=== PATIENT | male | born 1955 | race Caucasian/White ===

== ENCOUNTER 2016-12-16 10:01 | Inpatient (IN) ==
[2016-12-16] MEDS ORDERED: 0.9 % Sodium Chloride 500 ML IVC ONE (10:11)
[2016-12-16] MEDS ORDERED: Aspirin 81 MG TAB.CHEW PO ONE (10:11)
[2016-12-16] MEDS: Nitroglycerin 0.4 MG TAB.SUBL SL ONE ×2 (10:25→10:32)
[2016-12-16 10:32] LABS: Basophils % 0.3 %; Eosinophils # 0.1 K/mcL (0.0-0.6); Eosinophils % 0.6 %; Hematocrit 42.7 % (37.5-50.1); Hemoglobin 14.6 g/dL (12.9-16.9); Immature Granulocytes % 0.2 % (0-4); Lymphocytes # 1.9 K/mcL (0.6-4.6); Lymphocytes % 22.6 %; Mean Corpuscular HGB Conc 34.2 g/dL (31.6-35.5); Mean Corpuscular Hemoglobin 30.6 pg (28.0-33.3); Mean Corpuscular Volume 89.5 fL (83.0-100.0); Monocytes # 0.5 K/mcL (0.0-1.3); Monocytes % 6.3 %; Platelet Count 159 K/mcL (140-400); Red Blood Count 4.77 M/mcL (4.19-5.50); Red Cell Distribution Width 12.1 % (11.5-14.5)
[2016-12-16 10:38] LABS: INR 1.2; Prothrombin Time 12.6 Seconds (9.4-12.1)
[2016-12-16 10:40] LABS: Activated Partial Thrombo Time 30.6 Seconds (26.0-36.0)
[2016-12-16 10:45] LABS: BUN/Creatinine Ratio 6 (6-26); Blood Urea Nitrogen 5 mg/dL (8-26); Calcium 9.3 mg/dL (8.6-10.8); Carbon Dioxide 22 mEq/L (19-29); Chloride 101 mEq/L (98-109); Glucose 361 mg/dL (70-99); Osmolality,Calculated 294 (280-300); Potassium 3.4 mEq/L (3.5-4.5); Sodium 136 mEq/L (136-145); eGFR For African Americans > 60 (> 60); eGFR For Non-African Americans > 60 (> 60)
--- NOTE | 2016-12-16 10:55 | Emergency Department Note ---
START Narrative - START START: 61-year-old male presents to the emergency department with complaint of midsternal/left-sided chest pain which radiates into his neck and left arm. Patient states that this began approximately 30-40 minutes prior to arrival. Patient states that he has had similar episodes in the past however denies any coronary artery disease which required any stent placement, although he has had a cardiac catheterization in the past. Patient states that his discomfort was acute in onset. He describes it as a pressure-like feeling. He does have some associated nausea but denies any vomiting or sweating episodes. Additionally, he does state that he is mildly short of breath. He denies any previous diagnosis of atrial fibrillation. He has not recently been ill. He denies any recent trauma. He denies any new medications or known drug allergies. [facility], awaiting results of chest x- ray, likely admission.
[2016-12-16] MEDS ORDERED: Nitroglycerin 25 MG/250 ML INFUS..BTL IVC SCH (11:15)
[2016-12-16] MEDS ORDERED: Heparin 25,000 UNIT/500 ML D5W 25,000 UNIT/500 ML MLS IVC SCH (11:15)
--- NOTE | 2016-12-16 11:31 | Emergency Department Note ---
Disposition Clinical Impression: NSTEMI (non-ST elevated myocardial infarction), Unstable angina Atrial fibrillation Qualifiers: Atrial fibrillation type: unspecified Qualified Code(s): I48.91 - Unspecified atrial fibrillation Disposition: Admitted As Inpatient Condition: Fair Referrals: Damian Kim Jr, MD [Primary Care Provider] - Forms: ED Satisfaction Letter Time of Disposition: 11:35 Chest Pain HPI - General Chief Complaint: ED Chest Pain Stated Complaint: Chest Pain Time Seen by Provider: 12/16/16 10:11 Source: patient, family Limitations: no limitations Vital Signs Reviewed: Yes Nursing Notes Reviewed: Yes - History of Present Illness HPI Narrative: She reports atraumatic chest pain that started 45 minutes prior to arrival from rest. Pain described as a heaviness across his left chest that radiates to his left shoulder. He feels dyspneic, nauseated, dizzy. He has experienced recent exertional chest discomfort and dyspnea. He has a remote history of coronary artery disease-cardiac catheterization done several years ago without stent deployment. He is a type II diabetic, former smoker, has hypertension and high cholesterol. He follows with cardiology Pt complaint: chest pain Onset (ago): minute(s) Duration: constant Onset: during rest Pain Location: left chest Severity scale (1-10): 6 Quality: aching Pain Radiation: LUE Improves with: nothing Worsens with: nothing Associated symptoms: Reports: dyspnea Treatments prior to arrival chest pain: none - Related Data Home Medications Medication Instructions Recorded Confirmed Ascorbate Calcium/Bioflavonoid 1 each PO BID 12/16/16 12/16/16 [Brigitte-C 500 mg Tablet] Aspirin 81 mg PO DAILY 12/16/16 12/16/16 Atenolol 100 mg PO DAILY 12/16/16 12/16/16 Atorvastatin [Lipitor] 40 mg PO HS 12/16/16 12/16/16 Calcium Carbonate/Vitamin D3 1 tab PO BID 12/16/16 12/16/16 [Calcium 600 + Vit D Softgel] Fish Oil/Dha/Epa [Fish Oil 1,200 1 each PO DAILY 12/16/16 12/16/16 mg Fish Oil] Ginseng 100 mg PO DAILY 12/16/16 12/16/16 GlipiZIDE [Glipizide] 10 mg PO DAILY 12/16/16 12/16/16 HYDROcodone/Acet 5/325 mg [[place] 1 tab PO Q6H PRN 12/16/16 12/16/16 5-325 mg] Lidocaine Patch [Lidoderm 5% patch] 1 each TP DAILY 12/16/16 12/16/16 Metformin HCl [Glucophage] 1,000 mg PO BID 12/16/16 12/16/16 Allergies Allergy/AdvReac Type Severity Reaction Status Date / Time lisinopril AdvReac Cough Verified 12/16/16 11:17 All systems ED: reviewed and negative except as stated. Constitutional: Reports: as per HPI Eyes: Reports: as per HPI ENT ED: Reports: as per HPI Cardiovascular: Reports: chest pain Respiratory: Reports: dyspnea Gastrointestinal: Reports: nausea Musculoskeletal: Reports: as per HPI Integumentary: Reports: as per HPI Neurological: Reports: other (Dizziness) Psychiatric: Reports: as per HPI Endocrine: Reports: as per HPI Hematological/Lymphatic: Reports: as per HPI Allergic/Immunologic: Reports: as per HPI Chest Pain PMH - Past Medical History Medical history: Reports: diabetes, hyperlipidemia, hypertension, myocardial infarction Psychiatric history: Reports: no psych history - Social History Smoking Status: Former smoker Alcohol use: Reports: none Drug use: Reports: none Physical Exam - General Limitations: no limitations General appearance: alert - Head Head exam: atraumatic - Eye Eye exam: Present: normal appearance - ENT ENT exam: normal exam - Neck Neck exam: Present: normal inspection, full ROM - Chest Chest inspection: Present: normal inspection, symmetric chest wall rise - Respiratory Respiratory exam: Present: normal lung sounds bilaterally - Cardiovascular Cardiovascular exam: Present: normal rhythm, tachycardia, normal heart sounds - Abdominal Exam Abdominal exam: Present: soft, Non-Tender - Rectal Exam Rectal exam: Present: deferred - Extremities Exam Extremities exam: Present: normal inspection - Neurological Exam Neurological exam: Present: alert, oriented X3, CN II-XII intact - Psychiatric Psychiatric exam: Present: normal affect, normal mood - Skin Skin exam: Present: warm, dry, intact Course Course Narrative: Patient with known coronary artery disease risk factors presents with chest pain. Chest pain improved at the time of my exam after sublingual nitroglycerin ordered by the mid-level provider. Patient resting comfortably. We will evaluate patient for ACS - Reevaluation(s) Reevaluation #1: Troponin returned elevated. Heart rate normalized to the 90s. EKG shows normal sinus rhythm. Reevaluation #2: Dr. Buckley accepts admission Reevaluation #3: Patient's rate is controlled. He is being heparinized. Suspect new onset A. fib - Consultations Consultation #1: Case discussed with the on-call marine erector . She has dispatched her nurse practitioner to evaluate the patient in the emergency department. She recommends admission to the medicine service Vital Signs Temperature 97.6 F 12/16/16 10:05 Pulse Rate 123 12/16/16 10:05 Respiratory Rate 18 12/16/16 10:05 Blood Pressure 136/100 12/16/16 10:05 O2 Sat by Pulse Oximetry 100 12/16/16 10:05 Temperature 97.6 F 12/16/16 10:05 Pulse Rate 111 12/16/16 11:26 Respiratory Rate 16 12/16/16 11:26 Blood Pressure 160/95 12/16/16 11:26 O2 Sat by Pulse Oximetry 97 12/16/16 11:26 Oxygen Delivery Oxygen Delivery Nasal Cannula Chest Pain - Lab Data Lab results reviewed: Yes I reviewed the patient's lab results. Result diagrams: 12/16/16 10:24 12/16/16 10:24 Lab Results 12/16/16 12/16/16 12/16/16 Range/Units 10:24 10:24 10:24 WBC 8.6 (4.3-11.1) K/mcL RBC 4.77 (4.19-5.50) M/mcL Hgb 14.6 (12.9-16.9) g/dL Hct 42.7 (37.5-50.1) % MCV 89.5 (83.0-100.0) fL MCH 30.6 (28.0-33.3) pg MCHC 34.2 (31.6-35.5) g/dL RDW 12.1 (11.5-14.5) % Plt Count 159 (140-400) K/mcL MPV 11.0 (9.4-12.4) fL Immature Gran % 0.2 (0-4) % Seg Neutrophils % 70.0 % Lymphocytes % 22.6 % Monocytes % 6.3 % Eosinophils % 0.6 % Basophils % 0.3 % Neutrophils # 6.0 (1.6-8.9) K/mcL Lymphocytes # 1.9 (0.6-4.6) K/mcL Monocytes # 0.5 (0.0-1.3) K/mcL Eosinophils # 0.1 (0.0-0.6) K/mcL Basophils # 0.0 (0.0-0.2) K/mcL PT 12.6 H (9.4-12.1) Seconds INR 1.2 APTT 30.6 (26.0-36.0) Seconds Sodium (136-145) mEq/L Potassium (3.5-4.5) mEq/L Chloride (98-109) mEq/L Carbon Dioxide (19-29) mEq/L BUN (8-26) mg/dL Creatinine (0.72-1.25) mg/dL Est GFR ( Amer) (> 60) Est GFR (Non-Af Amer) (> 60) BUN/Creatinine Ratio (6-26) Glucose (70-99) mg/dL Calculated Osmolality (280-300) Calcium (8.6-10.8) mg/dL Troponin I (0-0.03) ng/mL B-Natriuretic Peptide 121 H (0-100) pg/mL 12/16/16 12/16/16 Range/Units 10:24 10:24 WBC (4.3-11.1) K/mcL RBC (4.19-5.50) M/mcL Hgb (12.9-16.9) g/dL Hct (37.5-50.1) % MCV (83.0-100.0) fL MCH (28.0-33.3) pg MCHC (31.6-35.5) g/dL RDW (11.5-14.5) % Plt Count (140-400) K/mcL MPV (9.4-12.4) fL Immature Gran % (0-4) % Seg Neutrophils % % Lymphocytes % % Monocytes % % Eosinophils % % Basophils % % Neutrophils # (1.6-8.9) K/mcL Lymphocytes # (0.6-4.6) K/mcL Monocytes # (0.0-1.3) K/mcL Eosinophils # (0.0-0.6) K/mcL Basophils # (0.0-0.2) K/mcL PT (9.4-12.1) Seconds INR APTT (26.0-36.0) Seconds Sodium 136 (136-145) mEq/L Potassium 3.4 L (3.5-4.5) mEq/L Chloride 101 (98-109) mEq/L Carbon Dioxide 22 (19-29) mEq/L BUN 5 L (8-26) mg/dL Creatinine 0.86 (0.72-1.25) mg/dL Est GFR ( Amer) > 60 (> 60) Est GFR (Non-Af Amer) > 60 (> 60) BUN/Creatinine Ratio 6 (6-26) Glucose 361 H (70-99) mg/dL Calculated Osmolality 294 (280-300) Calcium 9.3 (8.6-10.8) mg/dL Troponin I 0.13 H* (0-0.03) ng/mL B-Natriuretic Peptide (0-100) pg/mL - Radiology Data Radiology results reviewed: Yes I reviewed the patient's radiology results. - EKG Data EKG attestation: Yes I reviewed and interpreted this EKG. EKG results narrative: Tachycardic rate 123 bpm QRS 106 QT/QTC 314/387. No acute ST segment elevation. possible afib Heart Score - Score History: Highly Suspicious EKG: Normal Age: 45-65 Risk Factors: Equal/Greater than 3 risk factor or history of atherosclerotic disease Troponin: Greater than 3x normal limit HEART Score Total: 7 Critical Care Time Critical Care Time: Yes Total Critical Care Time: 45 Attestation: Patient presented with chest pain, elevated troponin, IV heparin and nitroglycerin started.
--- NOTE | 2016-12-16 11:54 | Internal Med History&Physical ---
Date of Encounter: 12/16/16 Time of Encounter: 11:49 Assessment and Plan (1) HTN (hypertension) Current visit: Yes Status: Chronic not well controlled contribution to ischemia Qualifiers: Hypertension type: essential hypertension Qualified Code(s): I10 - Essential (primary) hypertension (2) Obesity Current visit: Yes Status: Chronic chronic Qualifiers: Obesity type: due to excess calories Obesity severity: non-morbid Qualified Code(s): E66.09 - Other obesity due to excess calories (3) Hyperlipemia Current visit: Yes Status: Chronic Qualifiers: Hyperlipidemia type: mixed hyperlipidemia Qualified Code(s): E78.2 - Mixed hyperlipidemia (4) Diabetes Current visit: Yes Status: Chronic start on sliding scale hold metformin Qualifiers: Diabetes mellitus type: type 2 Diabetes mellitus complication status: with unspecified complications Diabetes mellitus [facility] insulin use: unspecified terminal worker insulin use status Qualified Code(s): E11.8 - Type 2 diabetes mellitus with unspecified complications (5) Atrial fibrillation Current visit: Yes Status: Chronic chronic not on anticoagulation cardiology will adress b cathi to control rate Qualifiers: Atrial fibrillation type: chronic Qualified Code(s): I48.2 - Chronic atrial fibrillation (6) NSTEMI (non-ST elevated myocardial infarction) Current visit: Yes Status: Acute typical symptoms of cardiac chest pain with positive troponin cardiology evaluation in progress Internal Medicine - H&P: HPI Chief complaint: chest pain Admitted From: Emergency Dept Plans for Post Hospital Care: Home History of present illness: Mr. Myers is a 61 year old male Patient with history of hypertension, obesity, high cholesterol, diabetes, chronic atrial fibrillation not on anticoagulation Had a cardiac cath 8 years ago he says had some CAD but no intervention was done patient presents to emergency room developed chest pain about 9 AM described as chest pressure going up to his neck and down his left arm associated with shortness of breath, sweats and some nausea and vomited once and then came into the emergency room , was given 2 sublingual nitroglycerin The chest pain has subsided and not completely gone. EKG shows atrial fib RVR with some nonspecific st t chnges . patient has been seen been seen by cardiology in the emergency room and evaluation is in progress. Troponin 0.21 Past Med Surg Social Fam HX - Past Medical History Medical history: diabetes, hyperlipidemia, hypertension, myocardial infarction Psychiatric history: no psych history - Social History Smoking Status: Former smoker Smokeless Tobacco Status: No Alcohol use: none Drug use: none Internal Medicine - H&P: Meds Ascorbate Calcium/Bioflavonoid [Brigitte-C 500 mg Tablet] 1 each PO BID 12/16/16 [ History] Aspirin 81 mg PO DAILY 12/16/16 [History] Atenolol 100 mg PO DAILY 12/16/16 [History] Atorvastatin [Lipitor] 40 mg PO HS 12/16/16 [History] Calcium Carbonate/Vitamin D3 [Calcium 600 + Vit D Softgel] 1 tab PO BID [History] Fish Oil/Dha/Epa [Fish Oil 1,200 mg Fish Oil] 1 each PO DAILY 12/16/16 [History] Ginseng 100 mg PO DAILY 12/16/16 [History] GlipiZIDE [Glipizide] 10 mg PO DAILY 12/16/16 [History] HYDROcodone/Acet 5/325 mg [[place] 5-325 mg] 1 tab PO Q6H PRN 12/16/16 [History] Lidocaine Patch [Lidoderm 5% patch] 1 each TP DAILY 12/16/16 [History] Metformin HCl [Glucophage] 1,000 mg PO BID 12/16/16 [History] Allergies lisinopril Adverse Reaction (Verified 12/16/16 11:17) Cough All Systems PM: A 10-system review of systems was performed and is negative for pertinent findings except as documented above in the HPI. - Constitutional Constitutional: no chills, no fever(s), no night sweats - EENT Eyes: no change in vision, no discharge, no pain, no photophobia Ears: no ear discharge, no ear pain, no tinnitus Nose, mouth and throat: no dysphagia, no nasal discharge, no neck pain, no sore throat - Cardiovascular Cardiovascular ROS IM: chest pain, dyspnea, dyspnea on exertion, irregular heart rhythm - Respiratory Respiratory: no cough, no dyspnea, no wheezing, no excessive phlegm production - Gastrointestinal Gastrointestinal: nausea, no abdominal pain, no diarrhea, no hematemesis, no hematochezia, no melena, no vomiting - Musculoskeletal Musculoskeletal ROS IM: no numbness, no tingling - Integumentary Integumentary IM: no rash, no unusual bruising - Neurological Neurological ROS: no confusion, no convulsions, no focal weakness, no numbness, no tingling, no tremor(s) - Hematologic/Lymphatic Hematologic/Lymphatic: no easy bruising - Constitutional Vitals: Temp Pulse Resp BP Pulse Ox 97.6 F 111 16 160/95 97 12/16/16 10:05 12/16/16 11:26 12/16/16 11:26 12/16/16 11:26 12/16/16 11:26 General appearance: Present: A&O X 3 - Eye Eye exam: Present: PERRL, conjuntiva pink, sclera anicteric Pupils: Present: PERRL - Neck Neck exam general surgery: Present: supple, trachea midline. Absent: lymphadenopathy - Respiratory Respiratory exam: Present: CTAB. Absent: accessory muscle use, rales, rhonchi, wheezes - Cardiovascular Cardiovascular exam: Present: irregular rhythm, tachycardia - GI/Abdominal GI/Abdominal exam: Present: normal bowel sounds, soft, no peritoneal signs. Absent: distended, tenderness - Extremities Exam Extremities exam: Present: warm, radial pulses palpable and symetrical. Absent : calf tenderness, cyanotic, pedal edema Internal Med - H&P Results - Labs CBC & Chem 7: 12/16/16 10:24 12/16/16 10:24 Labs: Short CBC 12/16/16 Range/Units 10:24 WBC 8.6 (4.3-11.1) K/mcL Hgb 14.6 (12.9-16.9) g/dL Hct 42.7 (37.5-50.1) % Plt Count 159 (140-400) K/mcL Neutrophils # 6.0 (1.6-8.9) K/mcL BMP 12/16/16 10:24 Sodium 136 Potassium 3.4 L Chloride 101 Carbon Dioxide 22 BUN 5 L Creatinine 0.86 Glucose 361 H Calcium 9.3 Cardiac Enzymes 12/16/16 Range/Units 10:24 Troponin I 0.13 H* (0-0.03) ng/mL - Impressions ITS Impressions Chest X-Ray 12/16/16 10:11 IMPRESSION: Stable borderline enlarged heart size with no acute abnormality. D/ / 12/16/2016 10:27:42 David Pollock MD [facility] Interpreting Provider: David Pollock MD
[2016-12-16] MEDS ORDERED: *HR* Morphine 2 MG/ML SYRINGE IVP PRN (12:06)
[2016-12-16] MEDS ORDERED: Naloxone 0.4 MG/ML INJ IVP PRN (12:06)
[2016-12-16] MEDS ORDERED: *HR* HYDROcodone/Acet 5/325 mg TABLET PO PRN (12:08)
[2016-12-16] MEDS ORDERED: *HR* Dextrose 50 % in Water (Syg) 50 ML SYRINGE IVP PRN (12:11)
[2016-12-16] MEDS ORDERED: Dextrose Gel 15 GM PO PRN ×2 (12:11)
[2016-12-16] MEDS ORDERED: D5% in Water 1,000 ML IVC PRN (12:11)
[2016-12-16] MEDS ORDERED: 0.9 % Sodium Chloride 1,000 ML ONE ×2 (12:16→12:33)
--- NOTE | 2016-12-16 12:16 | Cardiology Consult Note ---
<David Carver R - Last Filed: 12/16/16 12:18> Date of Encounter: 12/16/16 Time of Encounter: 12:14 Assessment and Plan (1) NSTEMI (non-ST elevated myocardial infarction) Current Visit: Yes Status: Acute Initial troponin 0.13. Trend for total of 3. Chest pain started this AM left sided pressure radiating to left arm, associated with worsening dyspnea. Nitro relieved pain to 5/10, but pain ongoing. Recommend [facility] to evaluate. R/B/A discussed and pt agrees to proceed. [facility] today. Continue heparin gtt. ASA, Statin, BB, Plavix was started by hospitalist. Check echo. Prior echo 08/2015 EF 55-60%. Negative stress 08/2015. [facility] 2011 minimal CAD. Multiple risk factors including tobacco abuse, HTN, HLD, DM. (2) Tachycardia Current Visit: Yes Status: Acute EKG HR 120s, irregular. Reviewed and discussed with Dr. Gutierrez and Dr. Forrester-- appears to be multifocal tachycardia. HR 90s at bedside. Continue to monitor. (3) HTN (hypertension) Current Visit: Yes Status: Chronic 160s systolic currently. Will adjust antihypertensives as necessary. Qualifiers: Hypertension type: essential hypertension Qualified Code(s): I10 - Essential (primary) hypertension Discussion w patient/family: The assessment and plan as outlined above was discussed with the patient and/or family members who expressed understanding and agreement. All questions were answered. Thank you for involving us in the care of your patient. Please call with any questions. I will discuss all the above with Dr. Forrester and make changes as necessary. History of Present Illness Consult date: 12/16/16 Requesting physician: Melissa Buckley Consult reason: NSTEMI Chief complaint: Chest pain History of present illness: Mr. Myers is a 61 year old male with PMH of prior tobacco abuse, HTN, HLD, DM2, irregular heart rhythm that presents today for acute onset of chest pain at 9:30 this morning. It was left sided, described as pressure that radiated to left arm. He reports palpitations. Admits to worsening dyspnea over the past 2 weeks. Reports nitro helped chest pain, but currently ongoing rated 5/10. EKG is irregular, tachycardic, appears to be multifocal atrial tachycardia. A-Fib/ Flutter also a differential. Troponin 0.13. CXR without acute findings. LHC in 2011 with minimal CAD. Echo 08/2015 EF 55-60% with severely dilated LA. Stress 08/2015 negative for ischemia or infarct gated EF 60%. Past Med Surg Social Fam HX - Past Medical History Medical history: diabetes, hyperlipidemia, hypertension, myocardial infarction Psychiatric history: no psych history - Social History Smoking Status: Former smoker Smokeless Tobacco Status: No Alcohol use: none Drug use: none Medications and Allergies Ascorbate Calcium/Bioflavonoid [Brigitte-C 500 mg Tablet] 1 each PO BID 12/16/16 [ History] Aspirin 81 mg PO DAILY 12/16/16 [History] Atenolol 100 mg PO DAILY 12/16/16 [History] Atorvastatin [Lipitor] 40 mg PO HS 12/16/16 [History] Calcium Carbonate/Vitamin D3 [Calcium 600 + Vit D Softgel] 1 tab PO BID [History] Fish Oil/Dha/Epa [Fish Oil 1,200 mg Fish Oil] 1 each PO DAILY 12/16/16 [History] Ginseng 100 mg PO DAILY 12/16/16 [History] GlipiZIDE [Glipizide] 10 mg PO DAILY 12/16/16 [History] HYDROcodone/Acet 5/325 mg [Kempton 5-325 mg] 1 tab PO Q6H PRN 12/16/16 [History] Lidocaine Patch [Lidoderm 5% patch] 1 each TP DAILY 12/16/16 [History] Metformin HCl [Glucophage] 1,000 mg PO BID 12/16/16 [History] Allergies lisinopril Adverse Reaction (Verified 12/16/16 11:17) Cough All Systems Review: A 10-system review of systems was performed and is negative for pertinent findings except as documented above in the HPI. - Cardiovascular Cardiovascular: as per HPI, chest pain at rest, chest pain with exertion, dyspnea at rest, dyspnea on exertion, irregular heart rhythm, palpitations - Respiratory Respiratory: dyspnea Physical Examination Vital Signs, Last 4 Hours Temp Pulse Resp BP Pulse Ox 12/16/16 11:26 111 16 160/95 97 12/16/16 10:45 110 16 150/77 97 12/16/16 10:30 115 18 150/77 98 12/16/16 10:15 112 18 136/92 97 12/16/16 10:05 97.6 F 123 18 136/100 100 Vital Signs Temp Pulse Resp BP Pulse Ox 12/16/16 11:26 111 16 160/95 97 12/16/16 10:45 110 16 150/77 97 12/16/16 10:30 115 18 150/77 98 12/16/16 10:15 112 18 136/92 97 12/16/16 10:05 97.6 F 123 18 136/100 100 Intake and Output 12/15/16 12/16/16 12/16/16 23:59 07:59 15:59 Other: Weight 115.666 kg Patient Weight 12/16/16 23:59 Weight 115.666 kg General: Conversant, No Apparent Distress HEENT: Atraumatic, Normocephaly, Mucus Membranes Moist Neck: No JVD, Normal carotid pulses Cardiac: Other (irregular) Lungs: Normal Breath Sounds, No Wheeze, Rales, Rhonchi Neuro: Alert and responsive Abdomen: Soft, Non-Tender Skin: No rashes noted on visualized skin Musculoskeletal: No Chest Wall Tenderness Extremities: No Clubbing, No Cyanosis, No Edema, Normal Pulses Results 12/16/16 10:24 12/16/16 10:24 Lab Results 12/16/16 12/16/16 12/16/16 10:24 10:24 10:24 WBC 8.6 Hgb 14.6 Hct 42.7 Plt Count 159 INR 1.2 APTT 30.6 Sodium Potassium Chloride Carbon Dioxide BUN Creatinine Glucose Calcium Troponin I B-Natriuretic Peptide 121 H 12/16/16 12/16/16 10:24 10:24 WBC Hgb Hct Plt Count INR APTT Sodium 136 Potassium 3.4 L Chloride 101 Carbon Dioxide 22 BUN 5 L Creatinine 0.86 Glucose 361 H Calcium 9.3 Troponin I 0.13 H* B-Natriuretic Peptide Short CBC 12/16/16 Range/Units 10:24 WBC 8.6 (4.3-11.1) K/mcL Hgb 14.6 (12.9-16.9) g/dL Hct 42.7 (37.5-50.1) % Plt Count 159 (140-400) K/mcL Neutrophils # 6.0 (1.6-8.9) K/mcL BMP 12/16/16 Range/Units 10:24 Sodium 136 (136-145) mEq/L Potassium 3.4 L (3.5-4.5) mEq/L Chloride 101 (98-109) mEq/L Carbon Dioxide 22 (19-29) mEq/L BUN 5 L (8-26) mg/dL Creatinine 0.86 (0.72-1.25) mg/dL Glucose 361 H (70-99) mg/dL Calcium 9.3 (8.6-10.8) mg/dL Cardiac Enzymes 12/16/16 Range/Units 10:24 Troponin I 0.13 H* (0-0.03) ng/mL Impressions Chest X-Ray 12/16/16 10:11 IMPRESSION: Stable borderline enlarged heart size with no acute abnormality. D/ / 12/16/2016 10:27:42 David Pollock MD / reina Interpreting Provider: David Pollock MD Active Medications Acetaminophen/Hydrocodone Bitart (Kempton 5-325 Mg) 1 tab PO Q6H PRN PRN Reason: Pain Stop: 06/17/17 12:09 Amlodipine Besylate (Norvasc) 10 mg PO DAILY LUANN PRN Reason: Protocol Stop: 06/18/17 09:01 Aspirin (Aspirin) 81 mg PO DAILY LUANN Stop: 06/18/17 09:01 Atenolol (Tenormin) 100 mg PO DAILY LUANN Stop: 06/18/17 09:01 Atorvastatin Calcium (Lipitor) 40 mg PO HS LUANN Stop: 06/17/17 21:01 Calcium Carbonate (Tums) 500 mg PO BID LUANN Stop: 06/17/17 21:01 Clopidogrel Bisulfate (Plavix) 300 mg PO NOW ONE Stop: 12/16/16 12:13 Clopidogrel Bisulfate (Plavix) 75 mg PO DAILY LUANN Stop: 06/18/17 09:01 Dextrose/Water (Dextrose 50% (Syg)) 25 ml IVP AD PRN PRN Reason: Hypoglycemia Stop: 06/17/17 12:12 Docusate Sodium (Colace) 100 mg PO BID PRN PRN Reason: Constipation Stop: 06/17/17 12:07 Glucagon (Glucagen) 1 mg IM ONCE PRN PRN Reason: Hypoglycemia Stop: 06/17/17 12:12 Glucose (Gluctose) 15 gm PO ONCE PRN PRN Reason: Hypoglycemia Stop: 06/17/17 12:12 Glucose (Gluctose) 30 gm PO ONCE PRN PRN Reason: Hypoglycemia Stop: 06/17/17 12:12 Heparin Sodium/Dextrose (Heparin 25,000 Unit/500 Ml D5w) 25,000 unit in 500 mls @ 27.76 mls/hr IVC .Q18H1M LUANN; 12 UNIT/KG/HR PRN Reason: Protocol Stop: 06/17/17 11:16 Nitroglycerin (Nitroglycerin) 25 mg in 250 mls @ 3 mls/hr IVC .Q24H LUANN PRN Reason: 5 MCG/MIN Stop: 06/17/17 11:16 Sodium Chloride (0.9 % Sodium Chloride) 1,000 mls @ 75 mls/hr IVC .[id number] [facility] Stop: 06/17/17 12:16 Dextrose (Dextrose 5%) 1,000 mls @ 100 mls/hr IVC .Q10H PRN PRN Reason: HYPOGLYCEMIA Stop: 06/17/17 12:12 Insulin Human Lispro (Humalog) 0 units SQ TIDAC [facility] PRN Reason: Protocol Stop: 06/17/17 16:31 Insulin Human Lispro (Humalog) 0 units SQ HS LUANN PRN Reason: Protocol Stop: 06/17/17 21:01 Morphine Sulfate (Morphine Sulfate) 2 mg IVP Q4HR PRN PRN Reason: Severe Pain (7-10) Stop: 06/17/17 12:07 Naloxone HCl (Narcan) 0.4 mg IVP Q2MIN PRN PRN Reason: Opioid Reversal Stop: 06/17/17 12:07 Non-Formulary Medication (Ginseng [Ginseng]) 100 mg PO DAILY [facility] Stop: 06/18/17 09:01 Ondansetron HCl (Zofran) 4 mg IVP Q8HR PRN PRN Reason: Nausea And Vomiting Stop: 06/17/17 12:07 Pantoprazole Sodium (Protonix) 40 mg IVP DAILY [facility] Stop: 06/18/17 09:01 Pharmacy Profile Note (Patient Taking Own Medication) 0 each PO BID [facility] Stop: 06/17/17 21:01 Pharmacy Profile Note (Patient Taking Own Medication) 0 each PO DAILY [facility] Stop: 06/18/17 09:01 - Imaging and Cardiology Stress Test: report reviewed Echo: report reviewed Cardiac cath: report reviewed - EKG Interpretation EKG results cardiology: personally reviewed (MAT, rate 120s) Consult Discharge Plan - Plan <Shannan Forrester - Last Filed: 12/16/16 16:17> Assessment and Plan Discussion w patient/family: The assessment and plan as outlined above was discussed with the patient and/or family members who expressed understanding and agreement. All questions were answered. Thank you for involving us in the care of your patient. Please call with any questions. History of Present Illness History of present illness: Mr. Myers is a 61 year old male All Systems Review: A 10-system review of systems was performed and is negative for pertinent findings except as documented above in the HPI. Results 12/16/16 10:24 12/16/16 10:24 - Attending Attestation I examined this patient and my medical decision-making was reviewed with the BOARD RUNNER/PA/Advanced Practice Nurse/Resident Physician. I agree with the documented findings, disposition and treatment plan.
[2016-12-16] MEDS ORDERED: *HR* Heparin 10,000 UNIT/10 ML VIAL ONE (12:17)
[2016-12-16] MEDS ORDERED: Heparin 1,000 UNITS/500 mL NS 500 ML ONE (12:17)
[2016-12-16] MEDS ORDERED: Nitroglycerin 1,000 MCG/10 ML VIAL IV ONE (12:26)
[2016-12-16] MEDS ORDERED: Verapamil 5 MG/2 ML VIAL ONE (12:26)
[2016-12-16] MEDS ORDERED: *HR* Midazolam HCl 5 MG/5 ML VIAL IVP ONE (12:32)
[2016-12-16] MEDS ORDERED: *HR* FentaNYL (PF) 100 MCG/2 ML VIAL ONE (12:32)
--- NOTE | 2016-12-16 12:48 | Pre-Sedation Evaluation ---
Pre-sedation evaluation - Pre-sedation checklist Date of procedure: 12/16/16 Procedure: [facility] Recent Vitals: Last Vital Signs Temp 97.6 F 12/16/16 10:05 Pulse 111 12/16/16 11:26 Resp 16 12/16/16 11:26 BP 160/95 12/16/16 11:26 Pulse Ox 97 12/16/16 11:26 H&P (including ROS) documented in medical record: Yes Previous reaction to sedatives/anesthetics: No Dietary Status: NPO after Midnight Airway Assessment: Patient can open mouth completely, TMJ function normal Dentition: No loose teeth or bridges ASA Classification *see protocol: CLASS II-Mild systemic disease Plan of Care: Pt appropriate candidate for procedure/moderate/conscious sedation , Risks/benefits of procedure/sedation discussed w/ patient/family
[2016-12-16] MEDS ORDERED: Tirofiban 12.5 MG/250ML 12.5 MG/250 ML BAG ONE (13:05)
[2016-12-16] MEDS ORDERED: *HR* Ticagrelor 90 MG TABLET ONE (13:24)
--- NOTE | 2016-12-16 13:47 | Invasive Diagnostic Lab Proc ---
Name: Nicolas Myers Date of Study: 12/16/2016 Date: 1955 Ht: 74.0in Medical Record#: [id number] Age: 61 Wt: 254.85lb Gender: Male BSA: 2.41 Order #: [id number] BMI: 32.71 Physicians Procedure Physician: David Gutierrez MD, [facility] Referring MD: Referring MD: Staff Name Position Time In Amarilys Low RT (R) Scrub 12:48 PM Fina Swann RN Technical Designer 12:48 PM Bekah Cueva RN Monitor 12:51 PM Imani Alcaraz RT (R) Scrub 01:10 PM Indications Indication Non-Stemi Procedures Performed Procedure L HRT ARTERY/VENTRICLE ANGIO PRQ CARD PANTERA STENT W/ANGIO 1 VSL PRQ CARD PANTERA STENT W/ANGIO 1 VSL Pre-Procedure Checklist Informed consent is complete signed and on chart. H\\T\\P is on chart. ID band is on and ID verified with patient. Patient NPO for procedure The procedure was described for the patient and questions were answered. Blood Pressure: 149/93 ECG is on chart. Rhythm: Atrial Fibrillation Plan of Care Patient will tolerate the procedure without complications. Adequate level of comfort will be maintained. Hemodynamics will remain stable Patient will recover from procedure without complications. Respiratory function will be maintained. Cardiac rhythm will remain stable. Patient temperature will be maintained. Patient and/or family have verbalized understanding of the procedure. Patient Education Chief Complaint/Reason for Test: Cardiac Cath Developmental Category: Adult (18-64 years) Developmentally Appropriate for Age: Yes Learning Barriers: None Education Needs: Procedure Education Method: Verbal Information Taught: Cardiac Cath Educational Evaluation: Able to repeat information Intravenous Access Time IV Size Location DC'd Fluid/Drip Rate Units RN 12:30 PM 18g 1 1/4" Patent On Arrival Rt Antecubital 0.9NaCl 25 ml/hr Fina Swann RN Allergies lisinopril Vital Signs Time BP (mmHg) HR (bpm) O2 Sat. RR (bpm) LOC 12:49 PM / % 5 = Fully awake and oriented or at pre-proc level 12:58 PM / % 4 = Oriented but drowsy 12:58 PM / % 4 = Oriented but drowsy 01:13 PM / % 4 = Oriented but drowsy 12:45 PM 157 / 88 97 98 % 19 12:50 PM 140 / 109 93 96 % 21 12:55 PM 149 / 93 96 96 % 22 01:00 PM 134 / 66 90 95 % 20 01:05 PM 122 / 87 97 96 % 22 01:09 PM 127 / 96 93 96 % 01:15 PM 143 / 84 91 97 % 21 01:20 PM 134 / 90 92 97 % 22 01:25 PM 131 / 103 89 97 % 20 Procedural Medications Time Medication Dose Units Method Given By 12:48 PM Oxygen 2 L/min nasal cannula Fina Swann RN 12:49 PM Versed 2 mg Intravenous Fina Swann RN 12:49 PM Fentanyl 50 mcg Intravenous Fina Swann RN 12:54 PM Lidocaine 2% 0.5 ml Subcutaneous David Gutierrez MD, FACC 12:54 PM Versed 1 mg Intravenous Fina Swann RN 12:54 PM Fentanyl 25 mcg Intravenous Fina Swann RN 12:55 PM Heparin 4000 units Nitroglycerin 200 mcg Verapamil 2.5 mg Intraarterial David Gutierrez MD, FACC 12:57 PM Oxygen 4 L/min nasal cannula Fina Swann RN 01:06 PM Nitroglycerin 200 mcg Intracoronary David Gutierrez MD 01:07 PM Aggrastat Bolus: 50 ml Intravenous Fina Swann RN 01:08 PM Aggrastat 12.5mg/250ml 21 ml Intravenous Fina Swann RN 01:23 PM Brilinta 180 mg Orally Fina Swann RN ASA Classification: CLASS II- Mild systemic disease (i.e. well-controlled diabetes, hypertension, asthma, cigarette smoking) Juan Luis Score Preprocedure Postprocedure Activity 2- Moves 4 extremities sustained head lift Activity 2- Moves 4 extremities sustained head lift Circulation 2- SBP +/= 20 points of pre-anesthetic level Circulation 2- SBP +/= 20 points of pre-anesthetic level Consciousness 2- Awake and alert oriented x 3 Consciousness 2- Awake and alert oriented x 3 O2 Saturation 2- Able to maintain O2 satruation of 92% on room air O2 Saturation 2- Able to maintain O2 satruation of 92% on room air Respiratory 2- Able to deep breathe and cough well Respiratory 2- Able to deep breathe and cough well Total Score 10 Total Score 10 Contrast Agent: Isovue Diagnostic Contrast: 147 ml Total Contrast: 147 ml Fluoro Dose: 947 mGy Activated Clotting Time Time Seconds to Clot 01:05 PM 360 Procedure Log Time Note Enter By 12:30 PM Pt arrived to cleaner laboratory equipment 2 at 12:30 scoates 12:30 PM Patient charges- Angio tray pack, Navilyst 3mm J, Pulse Oximetry and ACIST tubing and transducer scoates 12:39 PM Physician arrived 12:40 scoates 12:40 PM Meet and anthony completed scoates 12:40 PM Sign in performed according to hospital policy. scoates 12:40 PM Procedure start 12:40 scoates 12:44 PM CathStat 12:44 PM Vitals capture started with the following parameters, Patient=Adult, Interval=5 min, Initial Pcnzskhn=006 mmHg, Deflation Rate=5 mmHg, Cuff placed on Left Arm 12:45 PM Hair removed from procedure site in procedure lab using clippers. Bilateral groin prepped with Chloraprep by Isaura Pollock RT (R), safety strap applied then patient was draped. Skin intact. lparsley 12:45 PM Hair removed from procedure site in procedure lab using clippers. Right wrist prepped with Chloraprep by Lexy Mathew RN, safety strap applied then patient was draped. Skin intact. lparsley 12:45 PM HR=97 bpm, JDYT=278/88 mmhg, SpO2=98.0 %, Resp=19 B/min 12:48 PM Recorded ECG: HR=95 Condition=Condition 1 12:48 PM Case Delayed No; ER patient scoates 12:48 PM Time: 12:48 Oxygen on at 2 L/min per nasal cannula by Fina Swann RN scoates 12:48 PM Amarilys Low RT (R) Position: Scrub Time in: 12:48 scoates 12:49 PM Fina Swann RN Position: Technical Designer Time in: 12:48 scoates 12:49 PM Time: 12:49 Versed 2 mg Intravenous Given by Fina Swann RN scoates 12:49 PM Time: 12:49 Fentanyl 50 mcg Intravenous Given by Fina Swann RN scoates 12:49 PM Time: 12:49 Patient comfortable and pain free: Yes scoates 12:49 PM Time: 12:49LOC: 5 = Fully awake and oriented or at pre-proc level scoates 12:50 PM HR=93 bpm, QYPA=221/109 mmhg, SpO2=96.0 %, Resp=21 B/min, Comment=AFIB 12:50 PM Pressure channel 1 zeroed. 12:51 PM Bekah Cueva RN Position: Monitor Time in: 12:51 to relieve Lexy Mathew RN [facility] 12:52 PM Lab called with troponin of 0.28 Dr. Gutierrez aware. [facility] 12:53 PM Time out performed according to hospital policy [facility] 12:54 PM Time: 12:54 0.5 ml Lidocaine 2% to right radial Subcutaneous Given by David Gutierrez MD, [facility] 12:54 PM Access obtained by percutaneous puncture. 6Fr 10cm Terumo Glidesheath sheath placed in right Radial artery. [id number] [facility] 12:54 PM Time: 12:54 Versed 1 mg Intravenous Given by Fina Swann RN [facility] 12:55 PM Time: 12:54 Fentanyl 25 mcg Intravenous Given by [facility] 12:55 PM HR=96 bpm, PMAA=594/93 mmhg, SpO2=96.0 %, Resp=22 B/min, Comment=AFIB 12:55 PM Time: 12:55 Patient given 4,000 units Heparin, 200 mcg Nitroglycerin, and 2.5 mg Verapamil Intraarterial by David Gutierrez MD, [facility] 12:55 PM 5Fr TIG catheter inserted over the wire [facility] 12:56 PM Recorded Pressure: LV, HR=97, Condition=Condition 1 (Left Ventricle) LV 118/-1/8 12:56 PM Catheter selectively placed in left ventricle [facility] 12:56 PM Bolus angiogram of left Ventricle complete: 10 ml/sec for a total of 30 mls [facility] 12:57 PM Recorded Pressure: LV, Ao, WJ=644, Condition=Condition 1 (Left Ventricle) LV 134/3/12, (Aorta) Ao 93/62/74 12:57 PM Time: 12:57 Oxygen on at 4 L/min per nasal cannula by Fina Swann RN [facility] 12:57 PM Recorded Pressure: Ao, PN=947, Condition=Condition 1 (Aorta) Ao 96/74/85 12:58 PM Time: 12:58 Patient comfortable and pain free: Yes [facility] 12:[facility] PM Time: 12:58LOC: 4 = Oriented but drowsy lparsley 12:58 PM LCA angiography performed in multiple views. lparsley 12:59 PM Recorded Pressure: Ao, JN=996, Condition=Condition 1 (Aorta) Ao 104/76/90 12:59 PM Lesion found in Mid Circumflex. Pre Stenosis: 90 lparsley 12:59 PM RCA angiography performed in multiple views. lparsley 12:59 PM Recorded Pressure: Ao, HR=89, Condition=Condition 1 (Aorta) Ao 100/76/87 01:00 PM HR=90 bpm, YXBD=900/66 mmhg, SpO2=95.0 %, Resp=20 B/min, Comment=AFIB 01:00 PM Coronary Dominance: right lparsley 01:00 PM Catheter removed lparsley 01:01 PM PCI Indication: PCI for high risk Non-STEMI or unstable ang[facility] 01:01 PM PCI Status Urgent [facility] 01:01 PM 6Fr RBL 3.5 Convey guide catheter was used to cannulate the PCI vessel successfully. reused? No lparsley 01:03 PM .014 PT Graphix 182cm guide wire across target lesion- successful. reused? No [facility] :03 PM Inflation device was opened. [facility] 01:05 PM HR=97 bpm, FZPA=731/87 mmhg, SpO2=96.0 %, Resp=22 B/min, Comment=AFIB 01:05 PM Recorded Pressure: Ao, VM=406, Condition=Condition 1 (Aorta) Ao 117/74/95 01:05 PM At 13:05 the ACT was 360 seconds. [facility] 01:06 PM Time: 13:06 Nitroglycerin 200 mcg Intracoronary Given by David Gutierrez MD [facility] :06 PM 2.25 mm x 15 mm Emerge Monorail balloon across target lesion- successful. reused? No [facility] :07 PM Balloon inflated @ 10 niels for 12 seconds [facility] 01:08 PM Time: 13:07 Aggrastat Bolus: 50 ml Intravenous Given by Fina Swann RN [facility] :08 PM Time: 13:08 Aggrastat 12.5mg/250ml 21 ml Intravenous Given by Fina Swann RN [facility] 01:08 PM Balloon catheter removed intact. [facility] 01:09 PM 2.5mm x 20mm Synergy bioabsorbable stent across target lesion- successful Lot #[id number] lparsley 01:09 PM HR=93 bpm, XUZY=720/96 mmhg, SpO2=96.0 %, Comment=AFIB 01:10 PM Recorded Pressure: Ao, DW=751, Condition=Condition 1 (Aorta) Ao 118/83/101 01:10 PM Imani Alcaraz RT (R) Position: Scrub Time in: 13:10 to relieve Amarilys Low RT (R) lparsley 01:10 PM Stent deployed @ 14 niels for 16 seconds lparsley 01:10 PM Stent delivery system removed intact. lparsley 01:11 PM 2.5 mm x 8mm NC Emerge balloon across target lesion- successful. reused? No lparsley 01:13 PM Balloon inflated @ 20 niels for 7 seconds lparsley 01:13 PM Balloon inflated @ 20 niels for 4 seconds lparsley 01:13 PM Time: 12:58LOC: 4 = Oriented but drowsy lparsley 01:14 PM Time: 12:58 Patient comfortable and pain free: Yes lparsley 01:14 PM Balloon inflated @ 20 niels for 9 seconds lparsley 01:14 PM Balloon inflated @ 20 niels for 5 seconds lparsley 01:14 PM Balloon catheter removed intact. lparsley 01:15 PM HR=91 bpm, FAKQ=449/84 mmhg, SpO2=97.0 %, Resp=21 B/min, Comment=AFIB 01:15 PM Recorded Pressure: Ao, TQ=794, Condition=Condition 1 (Aorta) Ao 127/77/101 01:15 PM PCI lesion in Proximal RCA. Pre Stenosis: 70 lparsley 01:17 PM 6Fr JR 4 Runway guide catheter was used to cannulate the PCI vessel successfully. reused? No lparsley 01:17 PM PT Graphix wire inserted lparsley 01:18 PM Recorded Pressure: Ao, OK=299, Condition=Condition 1 (Aorta) Ao 111/67/88 01:20 PM HR=92 bpm, XCME=310/90 mmhg, SpO2=97.0 %, Resp=22 B/min, Comment=AFIB 01:21 PM 3.0mm x 28mm Synergy bioabsorbable stent across target lesion- successful Lot #[id number] lparsley 01:21 PM Stent deployed @ 16 niels for 15 seconds lparsley 01:22 PM Stent delivery system removed intact. lparsley 01: PM Time: 13:23 Brilinta 180 mg Orally Given by Fina Swann RN lparsdickson :25 PM HR=89 bpm, LZGS=451/103 mmhg, SpO2=97.0 %, Resp=20 B/min, Comment=AFIB 01:25 PM Guide catheter removed intact. lparsley : PM Guide wire removed intact. lparsley : PM Procedure completed at 13:25 lparsley : PM Sign out completed: Radiation Dose 946.77 mGy Fluoro Time: 8.2 Isovue 370 - 200ml contrast 147 ml given by David Gutierrez MD, [facility]. Complications: NoneCardiac Rehab Consult needed: YesConfirmed administered medications: Yes lparsley : PM Arterial sheath pulled, Vasc Band closure device used and was Successful S/N. lparsley : PM 9 ml air in Vasc Band. lparsley : PM Post ECG Atrial Fibrillation lparsley : PM Post Blood Pressure 131/103 lparsley : PM 13:26 Post Pulses Rt Radial 2+ lparsley 01:27 PM Information taught Cardiac Cath, PCI, and Vasc Band lparsley 01:27 PM Education needs Procedure, Plan of Care, and Safe \\T\\ Effective Use of Medications lparsley :27 PM Learning barriers :None lparsley :27 PM Education Methods Verbal lparsley :27 PM Education evaluation Able to repeat information lparsley 01:28 PM Site status No bleeding/hematoma - Rt Wrist as reported by Imani Alcaraz RT (R) at 13:27 lparsley :29 PM Time: 13:14 Patient comfortable and pain free: Yes lparsley :29 PM Time: 13:13LOC: 4 = Oriented but drowsy lparsley 01:30 PM Report given to Janelle ENCARNACION Pt taken to 2A Room #14. 13:29 lparsley 01:30 PM Plavix, Effient or Brilinta given Yes lparsley :31 PM Delay to floor No lparsley 01:31 PM Patient out of room: 13:31 lparsley 01:31 PM Family placed in consult room. lparsley 01:31 PM Complications: None lparsley :31 PM Fluoro Time: 8.2 lparsley 01:31 PM Isovue 370 - 200ml contrast 147 ml given by David Gutierrez MD, [facility]. [facility] 01:31 PM Radiation Dose 946.77 mGy [facility] 01:33 PM Right Coronary, Right Posterior Descending Arteries with Right Posterolateral and Acute Marginal branches with 70 % stenosis. lparsley 01:34 PM Circumflex, Obtuse Marginal, Left Posterior Descending, and Left Posterolateral Coronary Arteries with 90 % stenosis. [facility] Complications Complication None Hemodynamics Pressures Site Systolic/A Wave Diastolic/V Wave Mean LV 118 -1 8 LV 134 3 12 AO 93 62 74 AO 96 74 85 AO 104 76 90 AO 100 76 87 AO 117 74 95 AO 118 83 101 AO 127 77 101 AO 111 67 88 Post Procedure Information Blood Pressure: 131/103 mmHg Rhythm: Atrial Fibrillation Post procedural instructions were given Closure Device Time Device Success/Fail 12/16/2016 1:26:00 PM Mechanical Compression Successful Site Checks Time Location Status Staff Sheath In? Note 01:27 PM Rt Wrist No bleeding/hematoma Imani Alcaraz RT (R) Pulses Time Site Pre-Procedure Post-Procedure Note 1:26:00 PM Rt Radial 2+ 12/16/2016 12:30:00 PM Bilateral DP \\T\\ PT 2+ 12/16/2016 12:30:00 PM Rt Radial 2+ Updated by Bekah Cueva RN on 12/16/2016 1:42:57 PM electronically signed on 12/16/2016 1:43:28 PM with status of Final
[2016-12-16] MEDS ORDERED: Tirofiban 12.5 MG/250ML 12.5 MG/250 ML BAG IVC SCH (15:30)
[2016-12-16] MEDS: Insulin LISPRO 300 UNITS/3 ML VIAL SQ SCH ×2 (18:36→21:31)
[2016-12-16 19:29] LABS: INR 1.1; Prothrombin Time 12.4 Seconds (9.4-12.1)
[2016-12-16 19:31] LABS: Activated Partial Thrombo Time 30.8 Seconds (26.0-36.0)
[2016-12-16 19:37] LABS: Hematocrit 39.8 % (37.5-50.1); Hemoglobin 13.4 g/dL (12.9-16.9); Mean Corpuscular HGB Conc 33.7 g/dL (31.6-35.5); Mean Corpuscular Hemoglobin 30.6 pg (28.0-33.3); Mean Corpuscular Volume 90.9 fL (83.0-100.0); Mean Platelet Volume 10.9 fL (9.4-12.4); Platelet Count 148 K/mcL (140-400); Red Blood Count 4.38 M/mcL (4.19-5.50); Red Cell Distribution Width 12.2 % (11.5-14.5)
[2016-12-16] MEDS: ASCORBATE CALCIUM PO SCH (20:11)
[2016-12-16] MEDS: BIOFLAVONOID PO SCH (20:11)
[2016-12-16] MEDS ORDERED: *HR* Ticagrelor 90 MG TABLET PO ONE (22:30)
[2016-12-16] MEDS: 0.9 % Sodium Chloride 1,000 ML IVC SCH (23:15)
[2016-12-17 00:28] LABS: Bilirubin,Urine Negative (Negative); Blood,Urine Negative (Negative); Clarity,Urine Clear (Clear); Color,Urine Yellow (Yellow); Glucose,Urine (UA) 250 mg/dL (Normal); Ketones,Urine Negative (Negative); Leukocyte Esterase,Urine Negative (Negative); Nitrite,Urine Negative (Negative); Protein,Urine Trace mg/dL (Neg-Trace); Specific Gravity,Urine 1.015 (1.010-1.025); Urobilinogen,Urine Normal (Normal)
[2016-12-17 00:31] LABS: Bacteria,Urine None Seen per hpf (None-Few); Hyaline Casts,Urine None Seen per lpf (None-Few); RBC,Urine 0-3 per hpf (0-3); Squamous Epithelial Cell,Urine Moderate per lpf (None-Few); WBC,Urine 0-3 per hpf (0-3)
[2016-12-17 00:31] LABS: Amphetamine Screen,Urine Positive ng/mL (Cutoff=1000); Barbiturate Screen,Urine Negative ng/mL (Cutoff=200); Benzodiazepines Screen,Urine Positive ng/mL (Cutoff=200); Cannabinoid Screen,Urine Negative ng/mL (Cutoff = 50); Cocaine Screen,Urine Negative ng/mL (Cutoff= 300); Opiate Screen,Urine Negative ng/mL (Cutoff=300); Phencyclidine Screen,Urine Negative ng/mL (Cutoff=25)
[2016-12-17] MEDS: Ondansetron 4 MG/2 ML VIAL IVP PRN (02:38)
[2016-12-17 06:52] LABS: BUN/Creatinine Ratio 11 (6-26); Blood Urea Nitrogen 8 mg/dL (8-26); Carbon Dioxide 24 mEq/L (19-29); Chloride 102 mEq/L (98-109); Sodium 137 mEq/L (136-145)
[2016-12-17 06:53] LABS: Alanine Aminotransferase 18 Units/L (0-55); Albumin 3.1 g/dL (3.5-5.0); Albumin/Globulin Ratio 0.9 (1.1-2.2); Alkaline Phosphatase 86 Units/L (38-126); Aspartate Amino Transferase 22 Units/L (5-34); Bilirubin,Total 1.2 mg/dL (0.2-1.2); Calcium 8.7 mg/dL (8.6-10.8); Chol/HDL Ratio 5.9 (0-4.9); Cholesterol 123 mg/dL (< 200); Globulin 3.6 g/dL (2.4-3.5); Glucose 261 mg/dL (70-99); HDL Cholesterol 21 mg/dL (40-59); LDL Cholesterol,Calculated 61 mg/dL (0-99); Magnesium 1.4 mg/dL (1.6-2.6); Osmolality,Calculated 291 (280-300); Total Protein 6.7 g/dL (6.0-8.3); Triglycerides 205 mg/dL (< 150); eGFR For African Americans > 60 (> 60); eGFR For Non-African Americans > 60 (> 60)
[2016-12-17] MEDS: Aspirin 81 MG TAB.CHEW PO SCH (08:13)
[2016-12-17] MEDS: *HR* Ticagrelor 90 MG TABLET PO SCH ×2 (08:14→20:47)
[2016-12-17] MEDS: Cholecalciferol (D-3) 1,000 UNIT TABLET PO SCH (08:14)
[2016-12-17] MEDS: Insulin LISPRO 300 UNITS/3 ML VIAL SQ SCH ×4 (08:15→20:47)
[2016-12-17] MEDS: amLODIPine 5 MG TABLET PO SCH (08:15)
[2016-12-17] MEDS: BIOFLAVONOID PO SCH (08:19)
[2016-12-17] MEDS: ASCORBATE CALCIUM PO SCH (08:19)
--- NOTE | 2016-12-17 08:23 | ECHO - Doppler Report ---
Echocardiogram Name: Nicolas Myers Date of Study: 12/16/2016 Date: 1955 Ht: 74.0 in Medical Record#: [id number] Age: 61 Wt: 255.0 lb Gender: Male BSA: 2.41 Order #: [id number] Location: [facility] Room #: 2A14 Reading Physician: David Carlson MD, [facility] Military Professional: Kenyatta Fuentes RDCS Ordering Physician: Moy Buckley MD Primary Physician: Damian Kim MD Indications: NSTEMI Impressions: Technically sub-optimal due to poor echocardiographic windows. Moderate-severe LV systolic dysfunction, LVEF 35%. There is diffuse hypokinesis with regional variations. Mild concentric left ventricular hypertrophy. Indeterminate diastolic function due to atrial fibrillation. The right ventricle was not adequately visualized on this study. Mildly dilated left atrium. No significant valvular dysfunction. Unable to estimate RVSP due to lack of TR jet. Left Ventricular Wall Motion: Rest Echo Findings The apex, apical inferior, mid inferior, basal inferior, apical anterior, mid anterior, basal anterior, apical septal, mid inferior septal, basal inferior septal, apical lateral, mid anterior lateral, basal anterior lateral, mid anterior septal, mid inferior lateral, basal anterior septal and basal inferior lateral ortiz were hypokinetic. Findings: Study Quality * Technically sub-optimal due to poor echocardiographic windows. ECG Findings * Atrial fibrillation. Left Ventricle * Moderate-severe LV systolic dysfunction, LVEF 35%. There is diffuse hypokinesis with regional variations. * Mild concentric left ventricular hypertrophy. * Indeterminate diastolic function due to atrial fibrillation. Right Ventricle * The right ventricle was not adequately visualized on this study. Left Atrium * Mildly dilated left atrium. Right Atrium * Right atrium is not well visualized. Aorta * Normally sized aortic root. Pericardium * There is no pericardial effusion present. IVC * The IVC was not visualized. Aortic Valve * Trileaflet aortic valve. * Mild-moderately sclerotic aortic valve leaflets. * No aortic stenosis. * No aortic regurgitation. Mitral Valve * Mildly thickened/calcified mitral valve leaflets. * No mitral stenosis. * Trace mitral regurgitation. Tricuspid Valve * Tricuspid valve not well visualized. * No tricuspid stenosis. * Trace tricuspid regurgitation. * Unable to estimate RVSP due to lack of TR jet. Pulmonic Valve * Pulmonic valve not well visualized. * No pulmonic stenosis. * No pulmonic regurgitation. History Hypertension Diabetes Hypercholesteremia History of CAD/PTCA Myocardial Infarction 08/22/2015 a Previous Echo was performed. Measurements: BP: 149/ 80 2D Normal Values RVIDd: 3.03 cm IVSd: 1.19 cm 0.6 - 1.0 cm LVIDd: 5.23 cm 3.7 - 5.6 cm LVPWd: 1.25 cm 0.6 - 1.1 cm LVIDs: 4.22 cm 1.5 - 3.6 cm AO: 3.50 cm < 4.0 cm %FS: 19.30 cm >25 % LA volume: 86 Updated by David Carlson MD, [facility] on 12/17/2016 8:19:09 AM electronically signed on 12/17/2016 8:19:40 AM with status of Final Wall Motion Nath: 1=Normal, 2=Hypokinesis, 3=Akinesis, 4=Dyskinesis, 5=Aneurysmal, 6=Hyperkinetic, X=Not Visualized (Blank)=Missing
[2016-12-17 08:33] LABS: Basophils % 0.2 %; Eosinophils % 0.1 %; Hematocrit 39.1 % (37.5-50.1); Hemoglobin 13.3 g/dL (12.9-16.9); Immature Granulocytes % 0.5 % (0-4); Lymphocytes # 1.4 K/mcL (0.6-4.6); Lymphocytes % 9.1 %; Mean Corpuscular Hemoglobin 30.8 pg (28.0-33.3); Mean Corpuscular Volume 90.5 fL (83.0-100.0); Mean Platelet Volume 11.2 fL (9.4-12.4); Monocytes # 0.8 K/mcL (0.0-1.3); Monocytes % 5.1 %; Neutrophils # 12.6 K/mcL (1.6-8.9); Platelet Count 142 K/mcL (140-400); Red Blood Count 4.32 M/mcL (4.19-5.50); Red Cell Distribution Width 12.2 % (11.5-14.5)
[2016-12-17] MEDS ORDERED: Pantoprazole 40 MG VIAL IVP SCH (09:00)
[2016-12-17] MEDS ORDERED: (Fish Oil/Dha/Epa [Fish Oil 1,200 Mg Fish Oil] 1 EACH PO SCH (09:00)
[2016-12-17] MEDS ORDERED: GINSENG 100 MG PO SCH (09:00)
--- NOTE | 2016-12-17 09:39 | Invasive Diagnostic Lab ---
Name: Nicolas Myers Date of Study: 12/16/2016 Date: 1955 Ht: 188.0 cm /74.0 in Medical Record#: [id number] Age: 61 Wt: 115.6 kg / 254.85 lb Account/Order#: [id number] Gender: Male BSA: 2.41 Order #: [id number] Fluoro Dose: 947 mGy BMI: 32.71 Procedure Physician: David Gutierrez MD, [facility] Referring MD: Referring MD: Procedures Performed: LEFT HEART CATH PCI of Acute MA Stent w/ PTCA Single Major Vessel (Circumflex) Stent w/ PTCA Single Major Vessel (RCA) Indications: Acute MA - elevated troponin with ongoing chest pressure despite nitroglycerin drip Impressions: There is severe two vessel coronary artery disease. The left ventricle is normal and has normal contractility EF 60% Patient had successful PTCA/Drug-Eluting Stent placement in the mid Circ. Patient had successful Drug-Eluting Stent placement in the proximal RCA. Recommendations: Optimal medical therapy of patient's disease. Aggressive risk factor modification. History/Risk Factors: NSTEMI Afib Sleep Apnea Diabetes Hypertension Dyslipidemia Family History of CAD Procedure Access obtained in the right Radial artery by percutaneous puncture Complications: None Contrast: Isovue 147ml Closure Device: Mechanical Compression Hemodynamics: Pressures Site Systolic/ A Wave Diastolic/ V Wave End Diastolic/ Mean HR LV 118 -1 8 97 LV 134 3 12 91 AO 93 62 74 107 AO 96 74 85 112 AO 104 76 90 100 AO 100 76 87 89 AO 117 74 95 102 AO 118 83 101 102 AO 127 77 101 100 AO 111 67 88 100 LV Ventriculography Ejection Method: LV Gram Ejection Fraction: 60% Wall Motion: CRUMP Anterobasal Normal Anterolateral Normal Apical: Normal Inferoapical Normal Inferobasal Normal Coronary Dominance: right Lesion Findings/Interventions * Left Main Coronary Artery - Absent. Separate ostia * Left Anterior Descending The LAD has mild disease The 1st Diagonal has mild disease * Circumflex There is a 20 mm long, 90% stenosis, subtotally occluded in the Mid Circumflex. The lesion has a SHIRLENE flow of 3 and has no thrombus present. An intervention was performed on the Mid Circumflex with a final stenosis of 0%. There were no lesion complications. The final SHIRLENE flow was 3. * Right Coronary Artery There is a 28 mm long, 70% stenosis in the Proximal RCA. The lesion has a SHIRLENE flow of 3 and has no thrombus present. An intervention was performed on the Proximal RCA with a final stenosis of 0%. There were no lesion complications. The final SHIRLENE flow was 3. Interventional Device(s) Vessel Segment Type Name Diameter (mm) Length (mm) Mid Circumflex Balloon Emerge Monorail 2.25 15 Mid Circumflex Drug Eluting Stent Synergy 2.5 20 Mid Circumflex Balloon NC Emerge 2.5 8 Proximal RCA Drug Eluting Stent Synergy 3 28 Updated by Bekah Cueva RN on 12/16/2016 1:42:27 PM David Gutierrez MD, FACC electronically signed on 12/17/2016 9:33:33 AM with status of Final
--- NOTE | 2016-12-17 10:33 | Cardiology Progress Note ---
Date of Encounter: 12/17/16 Time of Encounter: 10:30 Assessment and Plan (1) NSTEMI (non-ST elevated myocardial infarction) Current Visit: Yes Status: Acute Troponin 0.13, 0.28, 1.84. S/P C yesterday--Received PANTERA to mid circ and prox RCA. Pt reports an episode of right sided sharp chest pain overnight relieved with IV morphine without recurrence. He reports feeling very weak, fatigued. Echo resulted-- EF estimated at 35%, diffuse hypokinesis with regional variations. Mild concentric LVH, mildly dilated left atrium, no significant valvular dysfunction. DAPT (ASA and Brilinta) uninterrupted x 1 year. Pt verbalizes understanding. Switch BB to Toprol XL. Add ESTRADA-I. Right radial access site healing well--no bleeding, hematoma or ecchymosis noted. (2) Atrial fibrillation and flutter Current Visit: Yes Status: Acute Pt reports hx of irregular heart rhythm but was unsure if he had official diagnosis of A-Fib/Flutter. Telemetry reviewed and there is evidence of A-Fib and Flutter. 24 hour tele AVG HR 102. Will switch Atenolol to Toprol XL to start tomorrow AM- -already received Atenolol this AM. CHADSVASC score 4 (DM, HTN, CAD, CHF). Recommend chronic anticoagulation. Discussed NOACs vs. Coumadin. Pt prefers NOAC. Will fischer check Xarelto 20mg daily. Will start heparin gtt in the meantime. (3) Systolic CHF Current Visit: Yes Status: Acute Newly decreased EF on echo of 35%, diffuse hypokinesis with regional variations. Mild concentric LVH, mildly dilated left atrium, no significant valvular dysfunction. New onset of cough. Will start IV Lasix 40mg BID. Recommend Strict I/Os, Na and fluid restriction, daily weights. CXR today. Switch BB to Toprol XL and start ESTRADA-I. Qualifiers: Congestive heart failure chronicity: acute Qualified Code(s): I50.21 - Acute systolic (congestive) heart failure (4) Cardiomyopathy Current Visit: Yes Status: Acute Ischemic. EF 35%. [facility] yesterday S/P PCI to mid circ and prox RCA. BB, ESTRADA-I. Re-evaluate EF as outpt. Qualifiers: Cardiomyopathy type: ischemic Qualified Code(s): I25.5 - Ischemic cardiomyopathy (5) HTN (hypertension) Current Visit: Yes Status: Chronic Continue to monitor and adjust as necessary. Qualifiers: Hypertension type: essential hypertension Qualified Code(s): I10 - Essential (primary) hypertension (6) Leukocytosis Current Visit: Yes Status: Acute WBC increased to 14.8 today, temp of 99.7 early this AM. Management per primary team, but will check CXR to further evaluate. Qualifiers: Leukocytosis type: unspecified Qualified Code(s): D72.829 - Elevated white blood cell count, unspecified Discussion w patient/family: The assessment and plan as outlined above was discussed with the patient and/or family members who expressed understanding and agreement. All questions were answered. Thank you for involving us in the care of your patient. Please call with any questions. I will discuss all the above with Dr. Forrester and make changes as necessary. Subjective Principal diagnosis: NSTEMI Interval history: S/P [facility] yesterday--Received PANTERA to mid circ and prox RCA. Troponins 0.13, 0.28, 1.84. Pt reports an episode of right sided sharp chest pain overnight relieved with IV morphine without recurrence. He reports feeling very weak, fatigued. 24 hour tele reviewed--evidence of A-Fib/Flutter. AVG HR 102. Echo resulted-- EF estimated at 35%, diffuse hypokinesis with regional variations. Mild concentric LVH, mildly dilated left atrium, no significant valvular dysfunction. Objective Vital Signs, Last 4 Hours Temp Pulse Resp BP Pulse Ox 12/17/16 07:23 98.6 F 105 20 138/66 96 Vital Signs Temp Pulse Resp BP Pulse Ox 12/17/16 07:23 98.6 F 105 20 138/66 96 12/17/16 04:17 99.7 F H 108 22 149/65 94 L 12/17/16 00:38 99 138/91 12/16/16 23:53 98.3 F 94 18 179/62 95 12/16/16 19:37 97.7 F 88 22 150/76 96 12/16/16 16:41 0 0/0 12/16/16 14:07 97.4 F L 92 16 149/80 98 12/16/16 13:46 97.5 F L 97 17 168/98 98 12/16/16 11:26 111 16 160/95 97 12/16/16 10:45 110 16 150/77 97 Intake and Output 12/16/16 12/17/16 12/17/16 23:59 07:59 15:59 Intake Total 0 / 0 0 / 0 Output Total 200 / 200 400 / 400 300 / 300 Balance -200 / -200 -400 / -400 -300 / -300 Intake: Oral 0 / 0 0 / 0 Output: Urine 200 / 200 400 / 400 300 / 300 Other: Meal 0 Percent of Meal Consumed 0% Weight 121.472 kg Blood Glucose* 206 228 Patient Weight 12/17/16 23:59 Weight 121.472 kg General: Conversant, No Apparent Distress HEENT: Atraumatic, Normocephaly, Mucus Membranes Moist Neck: No JVD, Normal carotid pulses Cardiac: Other (irregularly irregular) Lungs: Normal Breath Sounds, No Wheeze, Rales, Rhonchi Neuro: Alert and responsive, No focal deficits noted Abdomen: Soft, Non-Tender Skin: Other (right radial access site healing well. No bleeding, hematoma or ecchymosis noted.) Musculoskeletal: No Chest Wall Tenderness Extremities: No Clubbing, No Cyanosis, No Edema, Normal Pulses Results 12/17/16 06:07 12/17/16 06:07 Lab Results 12/16/16 12/16/16 12/16/16 19:14 19:14 19:14 WBC 8.2 Hgb 13.4 Hct 39.8 Plt Count 148 INR 1.1 APTT 30.8 Sodium Potassium Chloride Carbon Dioxide BUN Creatinine Glucose Calcium Magnesium Total Bilirubin AST ALT Alkaline Phosphatase Troponin I 1.84 H* 12/17/16 12/17/16 06:07 06:07 WBC 14.8 H D Hgb 13.3 Hct 39.1 Plt Count 142 INR APTT Sodium 137 Potassium 3.0 L Chloride 102 Carbon Dioxide 24 BUN 8 Creatinine 0.76 Glucose 261 H Calcium 8.7 Magnesium 1.4 L Total Bilirubin 1.2 AST 22 ALT 18 Alkaline Phosphatase 86 Troponin I Short CBC 12/17/16 12/16/16 Range/Units 06:07 19:14 WBC 14.8 H D 8.2 (4.3-11.1) K/mcL Hgb 13.3 13.4 (12.9-16.9) g/dL Hct 39.1 39.8 (37.5-50.1) % Plt Count 142 148 (140-400) K/mcL Neutrophils # 12.6 H (1.6-8.9) K/mcL BMP 12/17/16 12/16/16 Range/Units 06:07 10:24 Sodium 137 136 (136-145) mEq/L Potassium 3.0 L 3.4 L (3.5-4.5) mEq/L Chloride 102 101 (98-109) mEq/L Carbon Dioxide 24 22 (19-29) mEq/L BUN 8 5 L (8-26) mg/dL Creatinine 0.76 0.86 (0.72-1.25) mg/dL Glucose 261 H 361 H (70-99) mg/dL Calcium 8.7 9.3 (8.6-10.8) mg/dL Cardiac Enzymes 12/16/16 12/16/16 12/16/16 Range/Units 19:14 12:20 10:24 Troponin I 1.84 H* 0.28 H* 0.13 H* (0-0.03) ng/mL Liver Function 12/17/16 Range/Units 06:07 Total Bilirubin 1.2 (0.2-1.2) mg/dL AST 22 (5-34) Units/L ALT 18 (0-55) Units/L Alkaline Phosphatase 86 (38-126) Units/L Albumin 3.1 L (3.5-5.0) g/dL Urine 12/16/16 Range/Units 23:51 Urine Color Yellow (Yellow) Urine Clarity Clear (Clear) Urine pH 6.0 (5.0-8.0) pH Units Ur Specific [place] 1.015 (1.010-1.025) Urine Protein Trace (Neg-Trace) mg/dL Urine Glucose (UA) 250 H (Normal) mg/dL Impressions Chest X-Ray 12/16/16 10:11 IMPRESSION: Stable borderline enlarged heart size with no acute abnormality. D/ / 12/16/2016 10:27:42 David Pollock MD / reina Interpreting Provider: David Pollock MD Active Medications Acetaminophen/Hydrocodone Bitart ([place] 5-325 Mg) 1 tab PO Q6H PRN PRN Reason: Pain Stop: 06/17/17 12:09 Amlodipine Besylate (Norvasc) 10 mg PO DAILY [facility] PRN Reason: Protocol Stop: 06/18/17 09:01 Last Admin: 12/17/16 08:15 Dose: 10 mg Aspirin (Aspirin) 81 mg PO DAILY [facility] Stop: 06/18/17 09:01 Last Admin: 12/17/16 08:13 Dose: 81 mg Atenolol (Tenormin) 100 mg PO DAILY [facility] Stop: 06/18/17 09:01 Last Admin: 12/17/16 08:14 Dose: 100 mg Atorvastatin Calcium (Lipitor) 40 mg PO HS [facility] Stop: 06/17/17 21:01 Last Admin: 12/16/16 20:10 Dose: 40 mg Calcium Carbonate (Tums) 500 mg PO BID [facility] Stop: 06/17/17 21:01 Last Admin: 12/17/16 08:14 Dose: 500 mg Dextrose/Water (Dextrose 50% (Syg)) 25 ml IVP AD PRN PRN Reason: Hypoglycemia Stop: 06/17/17 12:12 Docusate Sodium (Colace) 100 mg PO BID PRN PRN Reason: Constipation Stop: 06/17/17 12:07 Glucagon (Glucagen) 1 mg IM ONCE PRN PRN Reason: Hypoglycemia Stop: 06/17/17 12:12 Glucose (Gluctose) 15 gm PO ONCE PRN PRN Reason: Hypoglycemia Stop: 06/17/17 12:12 Glucose (Gluctose) 30 gm PO ONCE PRN PRN Reason: Hypoglycemia Stop: 06/17/17 12:12 Sodium Chloride (0.9 % Sodium Chloride) 1,000 mls @ 75 mls/hr IVC .[id number] [facility] Stop: 06/17/17 12:16 Last Admin: 12/16/16 23:15 Dose: 75 mls/hr Dextrose (Dextrose 5%) 1,000 mls @ 100 mls/hr IVC .Q10H PRN PRN Reason: HYPOGLYCEMIA Stop: 06/17/17 12:12 Insulin Human Lispro (Humalog) 0 units SQ TIDAC [facility] PRN Reason: Protocol Stop: 06/17/17 16:31 Last Admin: 12/17/16 08:15 Dose: 8 units Insulin Human Lispro (Humalog) 0 units SQ HS [facility] PRN Reason: Protocol Stop: 06/17/17 21:01 Last Admin: 12/16/16 21:31 Dose: 3 units Morphine Sulfate (Morphine Sulfate) 2 mg IVP Q4HR PRN PRN Reason: Severe Pain (7-10) Stop: 06/17/17 12:07 Last Admin: 12/16/16 23:31 Dose: 2 mg Naloxone HCl (Narcan) 0.4 mg IVP Q2MIN PRN PRN Reason: Opioid Reversal Stop: 06/17/17 12:07 Ondansetron HCl (Zofran) 4 mg IVP Q8HR PRN PRN Reason: Nausea And Vomiting Stop: 06/17/17 12:07 Last Admin: 12/17/16 02:38 Dose: 4 mg Pantoprazole Sodium (Protonix) 40 mg IVP DAILY [facility] Stop: 06/18/17 09:01 Last Admin: 12/17/16 08:15 Dose: 40 mg Pharmacy Profile Note (Patient Taking Own Medication) 0 each PO BID [facility] Stop: 06/17/17 21:01 Last Admin: 12/17/16 08:19 Dose: Not Given Pharmacy Profile Note (Patient Taking Own Medication) 0 each PO DAILY [facility] Stop: 06/18/17 09:01 Last Admin: 12/17/16 08:19 Dose: Not Given Pharmacy Profile Note (Patient Taking Own Medication) 0 each PO DAILY [facility] Stop: 06/18/17 09:01 Last Admin: 12/17/16 08:20 Dose: Not Given Potassium Chloride (Potassium Chloride) 40 meq PO BID [facility] Stop: 06/18/17 09:01 Last Admin: 12/17/16 09:41 Dose: 40 meq Ticagrelor (Brilinta) 90 mg PO BID [facility] Stop: 06/18/17 09:01 Last Admin: 12/17/16 08:14 Dose: 90 mg Vitamin D (Vitamin D) 1,000 unit PO DAILY [facility] Stop: 06/18/17 09:01 Last Admin: 12/17/16 08:14 Dose: 1,000 unit - Imaging and Cardiology Echo: report reviewed Cardiac cath: report reviewed - EKG Interpretation EKG results cardiology: other (24 hour tele AVG HR 102--A-Fib/Flutter.) Consult Discharge Plan - Plan Referrals: Damian Kim Jr, MD [Primary Care Provider] - 12/24/16 1:00 pm (Your follow up appointment will be with Radha Elam CNP )
[2016-12-17] MEDS ORDERED: *HR* Heparin 5,000 UNIT/ML VIAL IVP ONE (11:01)
[2016-12-17] MEDS ORDERED: *HR* Heparin 5,000 UNIT/ML VIAL IVP PRN ×2 (11:01)
[2016-12-17] MEDS ORDERED: Heparin 25,000 UNIT/500 ML D5W 25,000 UNIT/500 ML MLS IVC SCH (11:15)
[2016-12-17 11:25] LABS: Hematocrit 38.5 % (37.5-50.1); Hemoglobin 13.3 g/dL (12.9-16.9); Mean Corpuscular HGB Conc 34.5 g/dL (31.6-35.5); Mean Corpuscular Hemoglobin 31.1 pg (28.0-33.3); Mean Corpuscular Volume 90.2 fL (83.0-100.0); Mean Platelet Volume 10.8 fL (9.4-12.4); Platelet Count 155 K/mcL (140-400); Red Blood Count 4.27 M/mcL (4.19-5.50); Red Cell Distribution Width 12.3 % (11.5-14.5)
[2016-12-17] MEDS: Furosemide 40 MG/4 ML VIAL IVP SCH ×2 (11:47→17:05)
[2016-12-17] MEDS: 0.9 % Sodium Chloride 1,000 ML IVC SCH (11:47)
[2016-12-17 11:52] LABS: INR 1.2; Prothrombin Time 13.4 Seconds (9.4-12.1)
[2016-12-17] MEDS ORDERED: Magnesium Sulfate 2 GM in D5% in Water 100 ML IVPB ONE (11:53)
[2016-12-17 11:54] LABS: Activated Partial Thrombo Time 29.4 Seconds (26.0-36.0)
--- NOTE | 2016-12-17 14:03 | Internal Med Progress Note ---
Date of Encounter: 12/17/16 Time of Encounter: 14:01 - Assessment and plan (1) NSTEMI (non-ST elevated myocardial infarction) Current Visit: Yes Status: Acute Assessment and plan: S/P [facility] yesterday--Received PANTERA to mid circ and prox RCA. no chest pain this morning but had 1 episode last night which was reviewed with IV morphine. Started on dual antiplatelet therapy. Cardiology following. BB has been switched to Toprol-XL and ESTRADA inhibitor has been added. (2) HTN (hypertension) Current Visit: Yes Status: Chronic Assessment and plan: conitnue to monitor. meds as adjusted by cardio Qualifiers: Hypertension type: essential hypertension Qualified Code(s): I10 - Essential (primary) hypertension (3) Atrial fibrillation and flutter Current Visit: Yes Status: Acute Assessment and plan: continue toprol -xl CHADSVASC score 4 (DM, HTN, CAD, CHF). cardio Recommends chronic anticoagulation. Discussed NOACs vs. Coumadin. Pt prefers NOAC. started on heparin drip in the meantime he gets started on NOAC. (4) Systolic CHF Current Visit: Yes Status: Acute Assessment and plan: Newly decreased EF on echo of 35%, diffuse hypokinesis with regional variations. Mild concentric LVH, mildly dilated left atrium, no significant valvular dysfunction. IV Lasix 40mg BID started by cardiology. Strict I/Os, Na and fluid restriction, daily weights. continue Toprol XL and started on ESTRADA-I. Qualifiers: Congestive heart failure chronicity: acute Qualified Code(s): I50.21 - Acute systolic (congestive) heart failure (5) Leucocytosis Current Visit: Yes Status: Acute Assessment and plan: unclear if leucocytosis is from the [facility] done yesterday 2/2 stress. HE does have low grade 99.7 temp, mild cough, denies chest pain or sob. CXR was done yest that was unremarkable will monitor today, if worsening symptoms or fever, will repeat CXR. Qualifiers: Leukocytosis type: unspecified Qualified Code(s): D72.829 - Elevated white blood cell count, unspecified - Time Spent With Patient 25 - 35 minutes - Subjective Interval history: Patient seen at the bedside.reports feeling weak today. Admitted for chest pain, status post [facility] yesterday with placement of 2 stents. Cardiology is following, denies any chest pain this morning but had some chest pain overnight. started on heparin drip by cardiology for atrial fib. - Constitutional Vitals: Temp Pulse Resp BP Pulse Ox 98.9 F 76 18 115/52 97 12/17/16 10:59 12/17/16 10:59 12/17/16 10:59 12/17/16 10:59 12/17/16 10:59 General appearance: Present: A&O X 3 Exam: HEENT: Atraumatic, Normocephaly, Mucus Membranes Moist Neck: No JVD, Normal carotid pulses Cardiac: s1 and s2, irregular Lungs: Normal Breath Sounds, No Wheeze, or creptns Neuro: Alert and responsive, No focal deficits noted Abdomen: Soft, Non-Tender Skin: Other (right radial access site healing well. No bleeding, hematoma or ecchymosis noted.) Musculoskeletal: No Chest Wall Tenderness Extremities: No Clubbing, No Cyanosis, No Edema, Normal Pulses Internal Medicine: Result - Labs CBC & Chem 7: 12/17/16 11:14 12/17/16 06:07 Labs: Short CBC 12/16/16 12/17/16 12/17/16 Range/Units 19:14 06:07 11:14 WBC 8.2 14.8 H D 14.2 H (4.3-11.1) K/mcL Hgb 13.4 13.3 13.3 (12.9-16.9) g/dL Hct 39.8 39.1 38.5 (37.5-50.1) % Plt Count 148 142 155 (140-400) K/mcL Neutrophils # 12.6 H (1.6-8.9) K/mcL BMP 12/17/16 06:07 Sodium 137 Potassium 3.0 L Chloride 102 Carbon Dioxide 24 BUN 8 Creatinine 0.76 Glucose 261 H Calcium 8.7 Cardiac Enzymes 12/16/16 Range/Units 19:14 Troponin I 1.84 H* (0-0.03) ng/mL Liver Function 12/17/16 Range/Units 06:07 Total Bilirubin 1.2 (0.2-1.2) mg/dL AST 22 (5-34) Units/L ALT 18 (0-55) Units/L Alkaline Phosphatase 86 (38-126) Units/L Albumin 3.1 L (3.5-5.0) g/dL Urine 12/16/16 Range/Units 23:51 Urine Color Yellow (Yellow) Urine Clarity Clear (Clear) Urine pH 6.0 (5.0-8.0) pH Units Ur Specific [place] 1.015 (1.010-1.025) Urine Protein Trace (Neg-Trace) mg/dL Urine Glucose (UA) 250 H (Normal) mg/dL - ABG Interpretation ABG results: PT/INR, D-dimer PT 13.4 Seconds (9.4-12.1) H 12/17/16 11:14 Consult Discharge Plan - Plan Referrals: Damian Kim Jr, MD [Primary Care Provider] - 12/24/16 1:00 pm (Your follow up appointment will be with Radha Elam CNP )
[2016-12-17] MEDS ORDERED: *HR* Rivaroxaban 10 MG TABLET PO SCH (17:00)
--- NOTE | 2016-12-17 19:13 | Electrocardiograph Report ---
[facility] Test Date: 2016-12-16 Pat Name: Nicolas Myers Department: 105 Room: 2A14 Gender: M [employer]: : [id number] Requested By: Jeremie Burnett Order Number: [id number] Reading MD: Amanda Nava DO Measurements Intervals [place] Rate: 123 P: RI: 0 QRS: 4 QRSD: 106 T: 42 QT: 314 QTc: 387 Interpretive Statements ATRIAL FIBRILLATION WITH RAPID VENTRICULAR RESPONSE INDETERMINATE AXIS ABNORMAL RHYTHM ECG Electronically Signed On 12-17-2016 19:11:28 EDT by Amanda Nava DO
[2016-12-18] MEDS: 0.9 % Sodium Chloride 1,000 ML IVC SCH ×2 (02:00→15:52)
[2016-12-18] MEDS: Aspirin 81 MG TAB.CHEW PO SCH (07:53)
[2016-12-18] MEDS: Cholecalciferol (D-3) 1,000 UNIT TABLET PO SCH (07:53)
[2016-12-18] MEDS: *HR* Ticagrelor 90 MG TABLET PO SCH ×2 (07:53→21:17)
[2016-12-18] MEDS: amLODIPine 5 MG TABLET PO SCH (07:53)
[2016-12-18] MEDS: Furosemide 40 MG/4 ML VIAL IVP SCH ×2 (07:54→16:42)
[2016-12-18] MEDS: Insulin LISPRO 300 UNITS/3 ML VIAL SQ SCH ×4 (07:54→21:42)
[2016-12-18] MEDS: Metoprolol XL (24 HR) Succ 50 MG TAB.ER.24H PO SCH (07:54)
[2016-12-18 08:08] LABS: Basophils % 0.4 %; Eosinophils # 0.1 K/mcL (0.0-0.6); Eosinophils % 0.7 %; Hematocrit 38.5 % (37.5-50.1); Hemoglobin 13.6 g/dL (12.9-16.9); Immature Granulocytes % 0.5 % (0-4); Lymphocytes # 1.7 K/mcL (0.6-4.6); Lymphocytes % 15.9 %; Mean Corpuscular HGB Conc 35.3 g/dL (31.6-35.5); Mean Corpuscular Volume 90.6 fL (83.0-100.0); Mean Platelet Volume 10.9 fL (9.4-12.4); Monocytes # 0.7 K/mcL (0.0-1.3); Monocytes % 6.9 %; Neutrophils # 8.1 K/mcL (1.6-8.9); Platelet Count 136 K/mcL (140-400); Red Blood Count 4.25 M/mcL (4.19-5.50); Red Cell Distribution Width 12.4 % (11.5-14.5); Segmented Neutrophils % 75.6 %
[2016-12-18 08:16] LABS: BUN/Creatinine Ratio 12 (6-26); Blood Urea Nitrogen 9 mg/dL (8-26); Calcium 8.6 mg/dL (8.6-10.8); Carbon Dioxide 24 mEq/L (19-29); Chloride 102 mEq/L (98-109); Glucose 195 mg/dL (70-99); Osmolality,Calculated 286 (280-300); Potassium 3.2 mEq/L (3.5-4.5); Sodium 136 mEq/L (136-145); eGFR For African Americans > 60 (> 60); eGFR For Non-African Americans > 60 (> 60)
--- NOTE | 2016-12-18 09:45 | Cardiology Progress Note ---
Date of Encounter: 12/17/16 Time of Encounter: 09:41 Assessment and Plan (1) NSTEMI (non-ST elevated myocardial infarction) Current Visit: Yes Status: Acute Troponin 0.13, 0.28, 1.84. S/P [facility]--Received PANTERA to mid circ and prox RCA. Pt reports an episode of right sided sharp chest pain overnight that lasted 10 minutes and episode of midsternal pressure that lasted 15 minutes, both subsided on their own. Will increase Prilosec to 40mg QAM. He reports feeling weak, fatigued, dyspnea. Echo EF estimated at 35%, diffuse hypokinesis with regional variations. Mild concentric LVH, mildly dilated left atrium, no significant valvular dysfunction. DAPT (ASA and Brilinta) uninterrupted x 1 year. Pt verbalizes understanding. Will possibly stop ASA after 1 month as outpt since Xarelto was started. Switched BB to Toprol XL. Added ARB since has cough with Lisinopril. (2) Atrial fibrillation and flutter Current Visit: Yes Status: Acute Pt reports hx of irregular heart rhythm but was unsure if he had official diagnosis of A-Fib/Flutter. Telemetry reviewed and there is evidence of A-Fib and Flutter. 24 hour tele AVG HR 80. Switched Atenolol to Toprol XL this AM. CHADSVASC score 4 (DM, HTN, CAD, CHF). Recommend chronic anticoagulation. Discussed NOACs vs. Coumadin. Pt prefers NOAC. Ruiz checked Xarelto 20mg daily and is $25/month. Xarelto was started last night. Since receiving dose pt reports when he blows his nose it is pure blood. Also reports diarrhea and when he wiped there blood on the toilet paper. Unsure if there was blood mixed in stool. Will decrease Xarelto dose to 15mg. If bleeding persists, will need to stop Xarelto. H&H stable. Will continue to monitor. (3) Systolic CHF Current Visit: Yes Status: Acute Newly decreased EF on echo of 35%, diffuse hypokinesis with regional variations. Mild concentric LVH, mildly dilated left atrium, no significant valvular dysfunction. New onset of cough. Started IV Lasix 40mg BID. Recommend Strict I/Os, Na and fluid restriction, daily weights. CXR yesterday showed stable appearance of mild CHF with small posterior pleural effusions. Switched BB to Toprol XL and started ARB. Recheck CXR tomorrow. Qualifiers: Congestive heart failure chronicity: acute Qualified Code(s): I50.21 - Acute systolic (congestive) heart failure (4) Cardiomyopathy Current Visit: Yes Status: Acute Ischemic. EF 35%. [facility] S/P PCI to mid circ and prox RCA. BB, ESTRADA-I. Re-evaluate EF as outpt. Qualifiers: Cardiomyopathy type: ischemic Qualified Code(s): I25.5 - Ischemic cardiomyopathy (5) HTN (hypertension) Current Visit: Yes Status: Chronic Continue to monitor and adjust as necessary. Qualifiers: Hypertension type: essential hypertension Qualified Code(s): I10 - Essential (primary) hypertension (6) Diarrhea Current Visit: Yes Status: Acute Check for C-Diff. Qualifiers: Diarrhea type: unspecified type Qualified Code(s): R19.7 - Diarrhea, unspecified Discussion w patient/family: The assessment and plan as outlined above was discussed with the patient and/or family members who expressed understanding and agreement. All questions were answered. Thank you for involving us in the care of your patient. Please call with any questions. I will discuss all the above with Dr. Forrester and make changes as necessary. Subjective Principal diagnosis: NSTEMI Interval history: S/P [facility] 12/16--Received PANTERA to mid circ and prox RCA. Troponins 0.13, 0.28, 1.84. Echo-- EF estimated at 35%, diffuse hypokinesis with regional variations. Mild concentric LVH, mildly dilated left atrium, no significant valvular dysfunction. Pt reports 2 episodes of chest pain overnight--one episode of midsternal pressure subsided after 15 minutes on its own. The other episode was right sided , subsided after 10 minutes. Continued dyspnea. Reports when he blows his nose it is "all blood" and also reports diarrhea overnight. When he wiped this AM there was blood on the toilet paper, unsure if any was mixed with stool. CXR stable appearance mild CHF with small posterior pleural effusions. Objective Vital Signs, Last 4 Hours Temp Pulse Resp BP Pulse Ox 12/18/16 08:08 97 12/18/16 06:43 98.9 F 80 16 134/75 97 Vital Signs Temp Pulse Resp BP Pulse Ox 12/18/16 08:08 97 12/18/16 06:43 98.9 F 80 16 134/75 97 12/18/16 03:32 98.2 F 84 18 138/84 96 12/18/16 00:57 98 F 77 18 111/67 97 12/17/16 20:12 98.3 F 71 16 114/67 96 12/17/16 15:15 98.7 F 80 16 117/60 99 12/17/16 10:59 98.9 F 76 18 115/52 97 Intake and Output 12/17/16 12/18/16 12/18/16 23:59 07:59 15:59 Intake Total 1000 / 1000 240 / 240 Output Total 600 / 600 700 / 700 Balance 400 / 400 -460 / -460 Intake: IV Fluids 1000 / 1000 0.9 % Sodium Chloride 1, 1000 / 1000 000 ML @ 75 mls/hr IVC . [id number] [facility] Rx#: [id number] Oral 240 / 240 Output: Urine 600 / 600 700 / 700 Other: Meal Breakfast Percent of Meal Consumed 100% Weight 120.928 kg Blood Glucose* 191 165 Patient Weight 12/18/16 23:59 Weight 120.928 kg General: Conversant, No Apparent Distress HEENT: Atraumatic, Normocephaly, Mucus Membranes Moist Neck: No JVD, Normal carotid pulses Cardiac: Other (irregularly irregular) Lungs: Other (diminished) Neuro: Alert and responsive, No focal deficits noted Abdomen: Soft, Non-Tender Skin: No rashes noted on visualized skin Musculoskeletal: No Chest Wall Tenderness Extremities: No Clubbing, No Cyanosis, No Edema, Normal Pulses Results 12/18/16 07:47 12/18/16 07:47 Lab Results 12/17/16 12/17/16 12/18/16 11:14 11:14 07:47 WBC 14.2 H 10.7 Hgb 13.3 13.6 Hct 38.5 38.5 Plt Count 155 136 L INR 1.2 APTT 29.4 Sodium Potassium Chloride Carbon Dioxide BUN Creatinine Glucose Calcium 12/18/16 07:47 WBC Hgb Hct Plt Count INR APTT Sodium 136 Potassium 3.2 L Chloride 102 Carbon Dioxide 24 BUN 9 Creatinine 0.73 Glucose 195 H Calcium 8.6 Short CBC 12/18/16 12/17/16 Range/Units 07:47 11:14 WBC 10.7 14.2 H (4.3-11.1) K/mcL Hgb 13.6 13.3 (12.9-16.9) g/dL Hct 38.5 38.5 (37.5-50.1) % Plt Count 136 L 155 (140-400) K/mcL Neutrophils # 8.1 (1.6-8.9) K/mcL BMP 12/18/16 Range/Units 07:47 Sodium 136 (136-145) mEq/L Potassium 3.2 L (3.5-4.5) mEq/L Chloride 102 (98-109) mEq/L Carbon Dioxide 24 (19-29) mEq/L BUN 9 (8-26) mg/dL Creatinine 0.73 (0.72-1.25) mg/dL Glucose 195 H (70-99) mg/dL Calcium 8.6 (8.6-10.8) mg/dL Impressions Chest X-Ray 12/17/16 10:56 IMPRESSION: Stable appearance of mild CHF with small posterior pleural effusions and subpleural edema. There is no airspace edema. There is atelectasis in the left lung base D/ / Brooks Monroy MD / Brooks Monroy MD Interpreting Provider: Brooks Monroy MD Active Medications Acetaminophen/Hydrocodone Bitart ([place] 5-325 Mg) 1 tab PO Q6H PRN PRN Reason: Moderate Pain (4-6) Stop: 06/17/17 12:09 Amlodipine Besylate (Norvasc) 10 mg PO DAILY [facility] PRN Reason: Protocol Stop: 06/18/17 09:01 Last Admin: 12/18/16 07:53 Dose: 10 mg Aspirin (Aspirin) 81 mg PO DAILY [facility] Stop: 06/18/17 09:01 Last Admin: 12/18/16 07:53 Dose: 81 mg Atorvastatin Calcium (Lipitor) 40 mg PO HS [facility] Stop: 06/17/17 21:01 Last Admin: 12/17/16 20:47 Dose: 40 mg Calcium Carbonate (Tums) 500 mg PO BID [facility] Stop: 06/17/17 21:01 Last Admin: 12/18/16 07:54 Dose: 500 mg Dextrose/Water (Dextrose 50% (Syg)) 25 ml IVP AD PRN PRN Reason: Hypoglycemia Stop: 06/17/17 12:12 Docusate Sodium (Colace) 100 mg PO BID PRN PRN Reason: Constipation Stop: 06/17/17 12:07 Furosemide (Lasix) 40 mg IVP BIDDIURETIC [facility] Stop: 06/18/17 11:01 Last Admin: 12/18/16 07:54 Dose: 40 mg Glucagon (Glucagen) 1 mg IM ONCE PRN PRN Reason: Hypoglycemia Stop: 06/17/17 12:12 Glucose (Gluctose) 15 gm PO ONCE PRN PRN Reason: Hypoglycemia Stop: 06/17/17 12:12 Glucose (Gluctose) 30 gm PO ONCE PRN PRN Reason: Hypoglycemia Stop: 06/17/17 12:12 Sodium Chloride (0.9 % Sodium Chloride) 1,000 mls @ 75 mls/hr IVC .[id number] [facility] Stop: 06/17/17 12:16 Last Admin: 12/18/16 02:00 Dose: 75 mls/hr Dextrose (Dextrose 5%) 1,000 mls @ 100 mls/hr IVC .Q10H PRN PRN Reason: HYPOGLYCEMIA Stop: 06/17/17 12:12 Insulin Human Lispro (Humalog) 0 units SQ TIDAC [facility] PRN Reason: Protocol Stop: 06/17/17 16:31 Last Admin: 12/18/16 07:54 Dose: 4 units Insulin Human Lispro (Humalog) 0 units SQ HS [facility] PRN Reason: Protocol Stop: 06/17/17 21:01 Last Admin: 12/17/16 20:47 Dose: Not Given Losartan Potassium (Cozaar) 12.5 mg PO DAILY [facility] PRN Reason: Protocol Stop: 06/19/17 09:01 Last Admin: 12/18/16 07:53 Dose: 12.5 mg Metoprolol Succinate (Toprol Xl) 100 mg PO DAILY [facility] Stop: 06/19/17 09:01 Last Admin: 12/18/16 07:54 Dose: 100 mg Morphine Sulfate (Morphine Sulfate) 2 mg IVP Q4HR PRN PRN Reason: Severe Pain (7-10) Stop: 06/17/17 12:07 Last Admin: 12/16/16 23:31 Dose: 2 mg Naloxone HCl (Narcan) 0.4 mg IVP Q2MIN PRN PRN Reason: Opioid Reversal Stop: 06/17/17 12:07 Omeprazole (Prilosec) 20 mg PO DAILY@0730 [facility] PRN Reason: Protocol Stop: 06/19/17 07:31 Last Admin: 12/18/16 07:31 Dose: 20 mg Ondansetron HCl (Zofran) 4 mg IVP Q8HR PRN PRN Reason: Nausea And Vomiting Stop: 06/17/17 12:07 Last Admin: 12/17/16 02:38 Dose: 4 mg Potassium Chloride (Potassium Chloride) 40 meq PO BID [facility] Stop: 06/18/17 09:01 Last Admin: 12/18/16 07:53 Dose: 40 meq Rivaroxaban (Xarelto) 20 mg PO 1700 [facility] Stop: 06/18/17 17:01 Last Admin: 12/17/16 17:05 Dose: 20 mg Ticagrelor (Brilinta) 90 mg PO BID [facility] Stop: 06/18/17 09:01 Last Admin: 12/18/16 07:53 Dose: 90 mg Vitamin D (Vitamin D) 1,000 unit PO DAILY [facility] Stop: 06/18/17 09:01 Last Admin: 12/18/16 07:53 Dose: 1,000 unit - Imaging and Cardiology Chest Xray: report reviewed Echo: report reviewed Cardiac cath: report reviewed - EKG Interpretation EKG results cardiology: other (24 hour tele AVG HR 80, A-Fib/Flutter) Consult Discharge Plan - Plan Referrals: Damian Kim Jr, MD [Primary Care Provider] - 12/24/16 1:00 pm (Your follow up appointment will be with Radha Elma CNP )
--- NOTE | 2016-12-18 13:12 | Internal Med Progress Note ---
Date of Encounter: 12/17/16 Time of Encounter: 13:10 - Assessment and plan (1) NSTEMI (non-ST elevated myocardial infarction) Current Visit: Yes Status: Acute Assessment and plan: S/P [facility] ,Received PANTERA to mid circ and prox RCA. had chest heaviness last night which was self limiting. Started on dual antiplatelet therapy. Cardiology following. BB has been switched to Toprol-XL , lisinopril has been changed to losartan due to concern for cough (2) HTN (hypertension) Current Visit: Yes Status: Chronic Assessment and plan: conitnue to monitor. meds as adjusted by cardio Qualifiers: Hypertension type: essential hypertension Qualified Code(s): I10 - Essential (primary) hypertension (3) Atrial fibrillation and flutter Current Visit: Yes Status: Acute Assessment and plan: continue toprol -xl CHADSVASC score 4 (DM, HTN, CAD, CHF). started on xarelto yest however reports bleeding. dose has been decreased. (4) Systolic CHF Current Visit: Yes Status: Acute Assessment and plan: Newly decreased EF on echo of 35%, diffuse hypokinesis with regional variations. Mild concentric LVH, mildly dilated left atrium, no significant valvular dysfunction. IV Lasix 40mg BID started by cardiology. Strict I/Os, Na and fluid restriction, daily weights. continue Toprol XL and started on losartan Qualifiers: Congestive heart failure chronicity: acute Qualified Code(s): I50.21 - Acute systolic (congestive) heart failure (5) Leucocytosis Current Visit: Yes Status: Acute Assessment and plan: improved today mild cough, denies chest pain or sob. CXR was done that was unremarkable, unllikely pneumonia Qualifiers: Leukocytosis type: unspecified Qualified Code(s): D72.829 - Elevated white blood cell count, unspecified - Time Spent With Patient 25 - 35 minutes - Subjective Interval history: Patient seen at the bedside.reports feeling weak , reports 2 episodes of chest pain last night which was self-limiting. Admitted for chest pain, status post [facility] yesterday with placement of 2 stents. Cardiology is following, denies any chest pain this morning . started on xarelto yesterday, reports nose bleed and blood while wiping. - Constitutional Vitals: Temp Pulse Resp BP Pulse Ox 98.4 F 85 16 143/84 95 12/18/16 10:57 12/18/16 10:57 12/18/16 10:57 12/18/16 10:57 12/18/16 10:57 General appearance: Present: A&O X 3 Exam: HEENT: Atraumatic, Normocephaly, Mucus Membranes Moist Neck: No JVD, Normal carotid pulses Cardiac: s1 and s2, irregular Lungs: Normal Breath Sounds, No Wheeze, or creptns Neuro: Alert and responsive, No focal deficits noted Abdomen: Soft, Non-Tender Musculoskeletal: No Chest Wall Tenderness Extremities: No Clubbing, No Cyanosis, No Edema, Normal Pulses Internal Medicine: Result - Labs CBC & Chem 7: 12/18/16 07:47 12/18/16 07:47 Labs: Short CBC 12/18/16 Range/Units 07:47 WBC 10.7 (4.3-11.1) K/mcL Hgb 13.6 (12.9-16.9) g/dL Hct 38.5 (37.5-50.1) % Plt Count 136 L (140-400) K/mcL Neutrophils # 8.1 (1.6-8.9) K/mcL BMP 12/18/16 07:47 Sodium 136 Potassium 3.2 L Chloride 102 Carbon Dioxide 24 BUN 9 Creatinine 0.73 Glucose 195 H Calcium 8.6 - ABG Interpretation ABG results: PT/INR, D-dimer PT 13.4 Seconds (9.4-12.1) H 12/17/16 11:14 - Impressions Impressions Chest X-Ray 12/17/16 10:56 IMPRESSION: Stable appearance of mild CHF with small posterior pleural effusions and subpleural edema. There is no airspace edema. There is atelectasis in the left lung base D/ / Brooks Monroy MD / Brooks Monroy MD Interpreting Provider: Brooks Monroy MD Consult Discharge Plan - Plan Referrals: Damian Kim Jr, MD [Primary Care Provider] - 12/24/16 1:00 pm (Your follow up appointment will be with Radha Elam CNP )
--- NOTE | 2016-12-18 13:28 | Electrocardiograph Report ---
[address] [place] [address] Test Date: 2016-12-17 Pat Name: Nicolas Myers Department: 112 Room: 2A14 Gender: M Community Organizer: : [id number] Requested By: Jose Seay Order Number: [id number] Reading MD: David Gutierrez MD Measurements Intervals [place] Rate: 75 P: AL: 0 QRS: -19 QRSD: 111 T: 120 QT: 383 QTc: 412 Interpretive Statements ATRIAL FIBRILLATION INCOMPLETE RIGHT BUNDLE BRANCH BLOCK Electronically Signed On 12-18-2016 13:26:19 EDT by David Gutierrez MD
[2016-12-18] MEDS: *HR* Rivaroxaban 15 MG TABLET PO SCH (16:42)
[2016-12-18] MEDS: *HR* HYDROcodone/Acet 5/325 mg TABLET PO PRN ×2 (16:50→23:24)
[2016-12-19] MEDS: 0.9 % Sodium Chloride 1,000 ML IVC SCH (05:24)
[2016-12-19] MEDS: *HR* HYDROcodone/Acet 5/325 mg TABLET PO PRN ×2 (05:24→20:31)
[2016-12-19 05:27] LABS: Basophils % 0.3 %; Eosinophils # 0.1 K/mcL (0.0-0.6); Eosinophils % 1.6 %; Immature Granulocytes % 0.8 % (0-4); Lymphocytes # 2.2 K/mcL (0.6-4.6); Mean Corpuscular HGB Conc 34.2 g/dL (31.6-35.5); Mean Corpuscular Volume 90.7 fL (83.0-100.0); Mean Platelet Volume 11.2 fL (9.4-12.4); Monocytes # 0.7 K/mcL (0.0-1.3); Monocytes % 7.7 %; Neutrophils # 5.7 K/mcL (1.6-8.9); Platelet Count 166 K/mcL (140-400); Red Blood Count 4.19 M/mcL (4.19-5.50); Red Cell Distribution Width 12.4 % (11.5-14.5); Segmented Neutrophils % 64.6 %
[2016-12-19 05:45] LABS: BUN/Creatinine Ratio 11 (6-26); Blood Urea Nitrogen 9 mg/dL (8-26); Calcium 8.7 mg/dL (8.6-10.8); Carbon Dioxide 28 mEq/L (19-29); Chloride 103 mEq/L (98-109); Glucose 156 mg/dL (70-99); Osmolality,Calculated 290 (280-300); Potassium 3.2 mEq/L (3.5-4.5); Sodium 139 mEq/L (136-145); eGFR For African Americans > 60 (> 60); eGFR For Non-African Americans > 60 (> 60)
[2016-12-19] MEDS ORDERED: Potassium Chloride 40 MEQ, Lidocaine 1% 2 ML in D5% in Water 500 ML IVPB ONE (07:58)
[2016-12-19] MEDS: Cholecalciferol (D-3) 1,000 UNIT TABLET PO SCH (08:30)
[2016-12-19] MEDS: Aspirin 81 MG TAB.CHEW PO SCH (08:30)
[2016-12-19] MEDS: Metoprolol XL (24 HR) Succ 50 MG TAB.ER.24H PO SCH (08:30)
[2016-12-19] MEDS: *HR* Ticagrelor 90 MG TABLET PO SCH ×2 (08:30→20:23)
[2016-12-19] MEDS: Insulin LISPRO 300 UNITS/3 ML VIAL SQ SCH ×4 (08:31→21:06)
[2016-12-19] MEDS: amLODIPine 5 MG TABLET PO SCH (08:31)
[2016-12-19] MEDS: Furosemide 40 MG/4 ML VIAL IVP SCH ×2 (08:31→16:43)
[2016-12-19] MEDS: Ondansetron 4 MG/2 ML VIAL IVP PRN ×2 (08:31→17:46)
--- NOTE | 2016-12-19 08:44 | Cardiology Progress Note ---
Date of Encounter: 12/17/16 Time of Encounter: 08:40 Assessment and Plan (1) NSTEMI (non-ST elevated myocardial infarction) Current Visit: Yes Status: Acute Troponin 0.13, 0.28, 1.84. S/P [facility]--Received PANTERA to mid circ and prox RCA. Echo EF estimated at 35%, diffuse hypokinesis with regional variations. Mild concentric LVH, mildly dilated left atrium, no significant valvular dysfunction. DAPT (ASA and Brilinta) uninterrupted x 1 year. Pt verbalizes understanding. Will possibly stop ASA after 1 month as outpt since Xarelto was started. Switched BB to Toprol XL. Added ARB since has cough with Lisinopril. Will schedule office follow-up within 1 week. (2) Atrial fibrillation and flutter Current Visit: Yes Status: Acute Pt reports hx of irregular heart rhythm but was unsure if he had official diagnosis of A-Fib/Flutter. Paroxysmal A-Fib and Flutter throughout stay. 24 hour tele AVG HR 88. On Toprol XL 100mg daily. CHADSVASC score 4 (DM, HTN, CAD, CHF). Recommend chronic anticoagulation. Discussed NOACs vs. Coumadin. Pt prefers NOAC. Ruiz checked Xarelto and is $25/ month. Xarelto was started and after first dose pt reported when he blows his nose it was pure blood. Also reports diarrhea and when he wiped there blood on the toilet paper. Decreased Xarelto dose to 15mg last night and no recurrent bleeding. H&H stable. (3) Systolic CHF Current Visit: Yes Status: Acute Newly decreased EF on echo of 35%, diffuse hypokinesis with regional variations. Mild concentric LVH, mildly dilated left atrium, no significant valvular dysfunction. New onset of cough. Diuresing with IV Lasix 40mg BID. Pt had fluids running this AM--stopped. -300mL yesterday. Still net positive during stay. Recommend Strict I/Os, Na and fluid restriction, daily weights. CXR 12/17 showed stable appearance of mild CHF with small posterior pleural effusions. CXR ordered for today to re-evaluate. Continue BB and ARB. Qualifiers: Congestive heart failure chronicity: acute Qualified Code(s): I50.21 - Acute systolic (congestive) heart failure (4) Cardiomyopathy Current Visit: Yes Status: Acute Ischemic. EF 35%. [facility] S/P PCI to mid circ and prox RCA. BB, ESTRADA-I. Re-evaluate EF as outpt. Qualifiers: Cardiomyopathy type: ischemic Qualified Code(s): I25.5 - Ischemic cardiomyopathy (5) HTN (hypertension) Current Visit: Yes Status: Chronic Continue to monitor and adjust as necessary. Qualifiers: Hypertension type: essential hypertension Qualified Code(s): I10 - Essential (primary) hypertension (6) Diarrhea Current Visit: Yes Status: Acute Check for C-Diff. Qualifiers: Diarrhea type: unspecified type Qualified Code(s): R19.7 - Diarrhea, unspecified Discussion w patient/family: The assessment and plan as outlined above was discussed with the patient and/or family members who expressed understanding and agreement. All questions were answered. Thank you for involving us in the care of your patient. Please call with any questions. I will discuss all the above with Dr. Forrester and make changes as necessary. Subjective Principal diagnosis: NSTEMI Interval history: S/P [facility] 12/16--Received PANTERA to mid circ and prox RCA. Troponins 0.13, 0.28, 1.84. Echo-- EF estimated at 35%, diffuse hypokinesis with regional variations. Mild concentric LVH, mildly dilated left atrium, no significant valvular dysfunction. CXR 12/17 stable appearance mild CHF with small posterior pleural effusions. Pt denies any chest pain overnight. Still reports dyspnea. Reports right arm and shoulder pain. Denies any epistaxis or blood in stool/when wiping. Objective Vital Signs, Last 4 Hours Temp Pulse Resp BP Pulse Ox 12/19/16 07:10 97.5 F L 72 20 112/72 97 12/19/16 05:16 97.8 F 104 18 146/88 99 Vital Signs Temp Pulse Resp BP Pulse Ox 12/19/16 07:10 97.5 F L 72 20 112/72 97 12/19/16 05:16 97.8 F 104 18 146/88 99 12/19/16 01:00 97.5 F L 68 18 115/76 95 12/18/16 21:23 98.1 F 92 20 123/79 99 12/18/16 15:56 99.1 F 73 16 112/73 95 12/18/16 10:57 98.4 F 85 16 143/84 95 Intake and Output 03/30/17 03/31/17 03/31/17 23:59 07:59 15:59 Intake Total 120 / 120 1000 / 1000 Output Total 850 / 850 400 / 400 Balance -730 / -730 600 / 600 Intake: IV Fluids 1000 / 1000 0.9 % Sodium Chloride 1, 1000 / 1000 000 ML @ 75 mls/hr IVC . [id number] [facility] Rx#: [id number] Oral 120 / 120 Output: Urine 850 / 850 400 / 400 Other: Meal Dinner Percent of Meal Consumed 100% Weight 121 kg Blood Glucose* 204 163 Patient Weight 12/19/16 23:59 Weight 121 kg General: Conversant, No Apparent Distress HEENT: Atraumatic, Normocephaly, Mucus Membranes Moist Neck: Normal carotid pulses Cardiac: Reg Rate and Rhythm, Normal S1 and S2, No Murmur Lungs: Other (diminished) Neuro: Alert and responsive, No focal deficits noted Abdomen: Soft, Non-Tender Skin: No rashes noted on visualized skin Musculoskeletal: No Chest Wall Tenderness Extremities: No Clubbing, No Cyanosis, No Edema, Normal Pulses Results 12/19/16 04:43 12/19/16 04:43 Lab Results 12/19/16 12/19/16 04:43 04:43 WBC 8.9 Hgb 13.0 Hct 38.0 Plt Count 166 Sodium 139 Potassium 3.2 L Chloride 103 Carbon Dioxide 28 BUN 9 Creatinine 0.83 Glucose 156 H Calcium 8.7 Short CBC 12/19/16 Range/Units 04:43 WBC 8.9 (4.3-11.1) K/mcL Hgb 13.0 (12.9-16.9) g/dL Hct 38.0 (37.5-50.1) % Plt Count 166 (140-400) K/mcL Neutrophils # 5.7 (1.6-8.9) K/mcL BMP 12/19/16 Range/Units 04:43 Sodium 139 (136-145) mEq/L Potassium 3.2 L (3.5-4.5) mEq/L Chloride 103 (98-109) mEq/L Carbon Dioxide 28 (19-29) mEq/L BUN 9 (8-26) mg/dL Creatinine 0.83 (0.72-1.25) mg/dL Glucose 156 H (70-99) mg/dL Calcium 8.7 (8.6-10.8) mg/dL Active Medications Acetaminophen/Hydrocodone Bitart ([place] 5-325 Mg) 1 tab PO Q6H PRN PRN Reason: Moderate Pain (4-6) Stop: 06/17/17 12:09 Last Admin: 12/19/16 05:24 Dose: 1 tab Amlodipine Besylate (Norvasc) 10 mg PO DAILY [facility] PRN Reason: Protocol Stop: 06/18/17 09:01 Last Admin: 12/19/16 08:31 Dose: 10 mg Aspirin (Aspirin) 81 mg PO DAILY [facility] Stop: 06/18/17 09:01 Last Admin: 12/19/16 08:30 Dose: 81 mg Atorvastatin Calcium (Lipitor) 40 mg PO HS [facility] Stop: 06/17/17 21:01 Last Admin: 12/18/16 21:16 Dose: 40 mg Calcium Carbonate (Tums) 500 mg PO BID [facility] Stop: 06/17/17 21:01 Last Admin: 12/19/16 08:31 Dose: 500 mg Dextrose/Water (Dextrose 50% (Syg)) 25 ml IVP AD PRN PRN Reason: Hypoglycemia Stop: 06/17/17 12:12 Docusate Sodium (Colace) 100 mg PO BID PRN PRN Reason: Constipation Stop: 06/17/17 12:07 Furosemide (Lasix) 40 mg IVP BIDDIURETIC [facility] Stop: 06/18/17 11:01 Last Admin: 12/19/16 08:31 Dose: 40 mg Glucagon (Glucagen) 1 mg IM ONCE PRN PRN Reason: Hypoglycemia Stop: 06/17/17 12:12 Glucose (Gluctose) 15 gm PO ONCE PRN PRN Reason: Hypoglycemia Stop: 06/17/17 12:12 Glucose (Gluctose) 30 gm PO ONCE PRN PRN Reason: Hypoglycemia Stop: 06/17/17 12:12 Dextrose (Dextrose 5%) 1,000 mls @ 100 mls/hr IVC .Q10H PRN PRN Reason: HYPOGLYCEMIA Stop: 06/17/17 12:12 Potassium Chloride 40 meq/ (Lidocaine 2 ml/ Dextrose) 522 mls @ 130.5 mls/hr IVPB ONCE ONE Stop: 12/19/16 11:57 Insulin Human Lispro (Humalog) 0 units SQ TIDAC [facility] PRN Reason: Protocol Stop: 06/17/17 16:31 Last Admin: 12/19/16 08:31 Dose: 4 units Insulin Human Lispro (Humalog) 0 units SQ HS [facility] PRN Reason: Protocol Stop: 06/17/17 21:01 Last Admin: 12/18/16 21:42 Dose: 3 units Losartan Potassium (Cozaar) 12.5 mg PO DAILY [facility] PRN Reason: Protocol Stop: 06/19/17 09:01 Last Admin: 12/19/16 08:30 Dose: 12.5 mg Metoprolol Succinate (Toprol Xl) 100 mg PO DAILY [facility] Stop: 06/19/17 09:01 Last Admin: 12/19/16 08:30 Dose: 100 mg Morphine Sulfate (Morphine Sulfate) 2 mg IVP Q4HR PRN PRN Reason: Severe Pain (7-10) Stop: 06/17/17 12:07 Last Admin: 12/16/16 23:31 Dose: 2 mg Naloxone HCl (Narcan) 0.4 mg IVP Q2MIN PRN PRN Reason: Opioid Reversal Stop: 06/17/17 12:07 Omeprazole (Prilosec) 40 mg PO DAILY@0730 [facility] PRN Reason: Protocol Stop: 06/20/17 07:31 Last Admin: 12/19/16 08:31 Dose: 40 mg Ondansetron HCl (Zofran) 4 mg IVP Q8HR PRN PRN Reason: Nausea And Vomiting Stop: 06/17/17 12:07 Last Admin: 12/19/16 08:31 Dose: 4 mg Potassium Chloride (Potassium Chloride) 40 meq PO BID [facility] Stop: 06/18/17 09:01 Last Admin: 12/19/16 08:31 Dose: 40 meq Rivaroxaban (Xarelto) 15 mg PO 1700 [facility] Stop: 06/19/17 17:01 Last Admin: 12/18/16 16:42 Dose: 15 mg Ticagrelor (Brilinta) 90 mg PO BID [facility] Stop: 06/18/17 09:01 Last Admin: 12/19/16 08:30 Dose: 90 mg Vitamin D (Vitamin D) 1,000 unit PO DAILY [facility] Stop: 06/18/17 09:01 Last Admin: 12/19/16 08:30 Dose: 1,000 unit - Imaging and Cardiology Echo: report reviewed Cardiac cath: report reviewed - EKG Interpretation EKG results cardiology: other (24 hour tele AVG HR 88, PAF, PAFl) Consult Discharge Plan - Plan Referrals: Damian Kim Jr, MD [Primary Care Provider] - 12/24/16 1:00 pm (Your follow up appointment will be with Radha Elam CNP )
[2016-12-19 11:29] LABS: Magnesium 1.6 mg/dL (1.6-2.6)
--- NOTE | 2016-12-19 13:09 | Event Note ---
Date of Encounter: 12/17/16 Time of Encounter: 13:08 - Cardiology Event Note Repeat CXR showed left base atelectasis, small bilateral pleural effusions ( same as prior). Recommend continued IV Lasix diuresis with transition to PO maintenance dosing at discharge. Follow-up as outpt within 1 week--coordinating through office. Cardiology is signing off. Reconsult PRN.
--- NOTE | 2016-12-19 13:42 | Internal Med Progress Note ---
Date of Encounter: 12/17/16 Time of Encounter: 13:40 - Assessment and plan (1) NSTEMI (non-ST elevated myocardial infarction) Current Visit: Yes Status: Acute Assessment and plan: S/P LHC ,Received PANTERA to mid circ and prox RCA. does not have chest pain or heaviness today or last night. Started on dual antiplatelet therapy. Cardiology following. BB has been switched to Toprol-XL , lisinopril has been changed to losartan due to concern for cough (2) HTN (hypertension) Current Visit: Yes Status: Chronic Assessment and plan: conitnue to monitor. meds as adjusted by cardio Qualifiers: Hypertension type: essential hypertension Qualified Code(s): I10 - Essential (primary) hypertension (3) Atrial fibrillation and flutter Current Visit: Yes Status: Acute Assessment and plan: continue toprol -xl CHADSVASC score 4 (DM, HTN, CAD, CHF). started on xarelto ,dose has been decreased due to bleeding. (4) Systolic CHF Current Visit: Yes Status: Acute Assessment and plan: Newly decreased EF on echo of 35%, diffuse hypokinesis with regional variations. Mild concentric LVH, mildly dilated left atrium, no significant valvular dysfunction. IV Lasix 40mg BID started by cardiology. will switch to PO lasix tomm. cxr repeated today shows no overt CHF. Strict I/Os, Na and fluid restriction, daily weights. continue Toprol XL and started on losartan Qualifiers: Congestive heart failure chronicity: acute Qualified Code(s): I50.21 - Acute systolic (congestive) heart failure (5) Leucocytosis Current Visit: Yes Status: Acute Assessment and plan: improved today mild cough, denies chest pain or sob. CXR was done that has no infiltrates, unllikely pneumonia Qualifiers: Leukocytosis type: unspecified Qualified Code(s): D72.829 - Elevated white blood cell count, unspecified - Time Spent With Patient 25 - 35 minutes - Subjective Interval history: Patient seen at the bedside.reports pain of the right arm, denies any chest pain or heaviness today. Admitted for chest pain, status post [facility] yesterday with placement of 2 stents. Cardiology signed off today, will continue the IV lasix for today and change to oral lasix, possible dc tomm - Constitutional Vitals: Temp Pulse Resp BP Pulse Ox 97.5 F L 87 18 111/65 97 12/19/16 11:07 12/19/16 11:07 12/19/16 11:07 12/19/16 11:07 12/19/16 11:07 General appearance: Present: A&O X 3 Exam: HEENT: Atraumatic, Normocephaly, Mucus Membranes Moist Neck: No JVD, Normal carotid pulses Cardiac: s1 and s2, irregular Lungs: Normal Breath Sounds, No Wheeze, or creptns Neuro: Alert and responsive, No focal deficits noted Abdomen: Soft, Non-Tender Musculoskeletal: No Chest Wall Tenderness Extremities: No Clubbing, No Cyanosis, No Edema, Normal Pulses Internal Medicine: Result - Labs CBC & Chem 7: 12/19/16 04:43 12/19/16 04:43 Labs: Short CBC 12/19/16 Range/Units 04:43 WBC 8.9 (4.3-11.1) K/mcL Hgb 13.0 (12.9-16.9) g/dL Hct 38.0 (37.5-50.1) % Plt Count 166 (140-400) K/mcL Neutrophils # 5.7 (1.6-8.9) K/mcL BMP 12/19/16 04:43 Sodium 139 Potassium 3.2 L Chloride 103 Carbon Dioxide 28 BUN 9 Creatinine 0.83 Glucose 156 H Calcium 8.7 - ABG Interpretation ABG results: PT/INR, D-dimer PT 13.4 Seconds (9.4-12.1) H 12/17/16 11:14 - Impressions Impressions Chest X-Ray 12/19/16 08:00 IMPRESSION: 1. Left base atelectasis. 2. Small bilateral pleural effusions without evidence of overt pulmonary edema. 3. Stable mild to moderate enlargement of the cardiac silhouette. D/ / Ramakrishna Xiao MD / Ramakrishna Xiao MD Interpreting Provider: Ramakrishna Xiao MD Consult Discharge Plan - Plan Referrals: Damian Kim Jr, MD [Primary Care Provider] - 12/24/16 1:00 pm (Your follow up appointment will be with Radha Elam CNP )
[2016-12-19] MEDS: *HR* Rivaroxaban 15 MG TABLET PO SCH (16:44)
[2016-12-19] MEDS ORDERED: Benzonatate 100 MG CAPSULE PO PRN (17:00)
[2016-12-20 07:44] VITALS: BP 120/66
[2016-12-20] MEDS: Insulin LISPRO 300 UNITS/3 ML VIAL SQ SCH (07:58)
[2016-12-20] MEDS: *HR* Ticagrelor 90 MG TABLET PO SCH (07:59)
[2016-12-20] MEDS: Aspirin 81 MG TAB.CHEW PO SCH (07:59)
[2016-12-20] MEDS: Furosemide 40 MG/4 ML VIAL IVP SCH (07:59)
[2016-12-20] MEDS: Cholecalciferol (D-3) 1,000 UNIT TABLET PO SCH (07:59)
[2016-12-20] MEDS: Metoprolol XL (24 HR) Succ 50 MG TAB.ER.24H PO SCH (07:59)
[2016-12-20] MEDS: amLODIPine 5 MG TABLET PO SCH (08:00)
--- NOTE | 2016-12-20 09:45 | Discharge Summary ---
Date of Encounter: 12/20/16 Time of Encounter: 09:39 - Discharge Diagnosis (1) NSTEMI (non-ST elevated myocardial infarction) Priority: Primary Status: Acute (2) HTN (hypertension) Priority: Secondary Status: Chronic Qualifiers: Hypertension type: essential hypertension Qualified Code(s): I10 - Essential (primary) hypertension (3) Atrial fibrillation and flutter Priority: Secondary Status: Acute (4) Systolic CHF Priority: Primary Status: Acute Qualifiers: Congestive heart failure chronicity: acute Qualified Code(s): I50.21 - Acute systolic (congestive) heart failure (5) Leucocytosis Priority: Primary Status: Acute Qualifiers: Leukocytosis type: unspecified Qualified Code(s): D72.829 - Elevated white blood cell count, unspecified - Discharge Medications Prescriptions: Amlodipine [Norvasc] 10 mg PO DAILY #60 tablet Furosemide [Lasix] 40 mg PO DAILY #30 tablet Losartan [Cozaar] 12.5 mg PO DAILY #30 tablet Metoprolol XL (24 HR) Succ [Toprol Xl] 100 mg PO DAILY #60 tab.er.24h Potassium Chloride 20 meq PO DAILY #60 tab.er.prt Rivaroxaban [Xarelto] 15 mg PO 1700 #30 tablet Ticagrelor [Brilinta] 90 mg PO BID #30 tablet Home Medications: Ascorbate Calcium/Bioflavonoid [Brigitte-C 500 mg Tablet] 1 each PO BID 12/16/16 [ History] Aspirin 81 mg PO DAILY 12/16/16 [History] Atenolol 100 mg PO DAILY 12/16/16 [History] Atorvastatin [Lipitor] 40 mg PO HS 12/16/16 [History] Calcium Carbonate/Vitamin D3 [Calcium 600 + Vit D Softgel] 1 tab PO BID [History] Fish Oil/Dha/Epa [Fish Oil 1,200 mg Fish Oil] 1 each PO DAILY 12/16/16 [History] Ginseng 100 mg PO DAILY 12/16/16 [History] GlipiZIDE [Glipizide] 10 mg PO DAILY 12/16/16 [History] HYDROcodone/Acet 5/325 mg [[place] 5-325 mg] 1 tab PO Q6H PRN 12/16/16 [History] Lidocaine Patch [Lidoderm 5% patch] 1 each TP DAILY 12/16/16 [History] Metformin HCl [Glucophage] 1,000 mg PO BID 12/16/16 [History] Amlodipine [Norvasc] 10 mg PO DAILY #60 tablet 12/20/16 [Rx] Furosemide [Lasix] 40 mg PO DAILY #30 tablet 12/20/16 [Rx] Losartan [Cozaar] 12.5 mg PO DAILY #30 tablet 12/20/16 [Rx] Metoprolol XL (24 HR) Succ [Toprol Xl] 100 mg PO DAILY #60 tab.er.24h 12/20/16 [ Rx] Potassium Chloride 20 meq PO DAILY #60 tab.er.prt 12/20/16 [Rx] Rivaroxaban [Xarelto] 15 mg PO 1700 #30 tablet 12/20/16 [Rx] Ticagrelor [Brilinta] 90 mg PO BID #30 tablet 12/20/16 [Rx] Allergies/Adverse Reactions: Allergies lisinopril Adverse Reaction (Verified 12/16/16 11:17) Cough Procedures/tests Complete & Pending: Procedures Performed prior 72 hours Category Date Time Status ECG 12 lead ECG [ECG] Routine Y 12/17/16 13:32 Completed Date of admission: 12/16/16 14:18 Primary care physician: Damian Kim Jr, MD Consults: 12/17/16 07:51 Consult to Cardiac Rehabilitation-Phase1 [CONS] Routine Comment: Reason for Consult: NSTEMI Call Completed: Yes Discharging clinician: Jose Seay Anticipated date of discharge: 12/20/16 - Patient Status Disposition: Home, Self-Care Condition: Fair Functional capacity at discharge: independent ambulation Overall status at discharge: patient is back to baseline - Discharge Instructions Follow Up With: aDmian Kim Jr, MD [Primary Care Provider] - 12/24/16 1:00 pm (Your follow up appointment will be with Radha Elam CNP ) David Carver CNP [Advanced Practice Nurse] - Additional Instructions: Follow-up appointments: If there is not an appointment listed below, please call your physician and schedule a follow-up appointment. If you have congestive heart failure and your symptoms return, make an appointment with your physician. Medication List: Carry an up to date list of medications you are taking at all time. We have given you an updated medication list including any new medications that you have been prescribed. Please provide that list to your primary provider Symptoms: If your condition changes or you experience any of the following symptoms, notify your physician immediately: Unusual or worsening pain, fever, persistent nausea and vomiting, bleeding, increase in swelling (especially in your legs), sudden weight gain, extreme dizziness, chest pain, increased drainage or redness from a wound or incision. Go to the emergency department if you experience a problem with breathing. Weights: If you have a history of swelling or shortness of breath, weigh yourself daily and notify your physician if you have a weight gain of two or more pounds in one day or 5 or more pounds in a week. If you experience any of the warning signs for stroke: Sudden numbness or weakness of the face, arm or leg; especially on one side of the body, sudden confusion, trouble speaking or understanding, sudden trouble seeing in one or both eyes, sudden trouble walking, dizziness, loss of balance or coordination, sudden sever headache with no cause; Call 911 or go to the emergency room. Stroke is a medical emergency. Some risk factors for stroke: Age, cigarette smoking, diabetes, excessive alcohol consumption, family history , high blood pressure, overweight, physical inactivity, prior stroke, heart attack, diagnosis of carotid artery stenosis or other artery disease. If you smoke, STOP: Smoking or tobacco use significantly increases your risk of heart and lung disease. Your chance of disease greatly increases if you continue to smoke. For more information, call the [place] tobacco quit line for smoking cessation QUIT-NOW ( ) - Diet and Activity Activity: resume usual activities as tolerated (avoid exertion) Interval History: Mr. Myers is a 61 year old male with PMH of prior tobacco abuse, HTN, HLD, DM2, irregular heart rhythm that presents today for acute onset of chest pain. It was left sided, described as pressure that radiated to left arm. He reports palpitations. Admits to worsening dyspnea over the past 2 weeks. Reports nitro helped chest pain. Troponin 0.13. CXR without acute findings. LHC in 2011 with minimal CAD. Echo 08/2015 EF 55-60% with severely dilated LA. Stress 08/2015 negative for ischemia or infarct gated EF 60%. cardiology was consulted and he underwent LHC--Received PANTERA to mid circ and prox RCA. Echo resulted-- EF estimated at 35%, diffuse hypokinesis with regional variations. Mild concentric LVH, mildly dilated left atrium, no significant valvular dysfunction. recommend DAPT (ASA and Brilinta) uninterrupted x 1 year. Pt verbalizes understanding. Switched BB to Toprol XL and started on losartan. HE was also started on IV lasix by cardio as the CXR showed vascular congestion with CHF findings. HE improved clinically and is being discharged to follow with cardiology as OP. His lasix is changed to oral. He will be reassesed as OP for continuation of lasix. he is being dc in stable condition. Hospital course: Mr. Myers is a 61 year old male Time spent discussing smoking cessation with patient: more than 10 minutes - Time Spent with Patient Total time spent providing and/or coordinating discharge services: Greater than 30 minutes - Constitutional Vitals: Temp Pulse Resp BP Pulse Ox 98.1 F 72 18 120/66 96 12/20/16 07:43 12/20/16 07:43 12/20/16 07:43 12/20/16 07:43 12/20/16 07:43 General appearance: Present: A&O X 3 Exam: HEENT: Atraumatic, Normocephaly, Mucus Membranes Moist Neck: No JVD, Normal carotid pulses Cardiac: Other (irregularly irregular) Lungs: Normal Breath Sounds, No Wheeze, Rales, Rhonchi Neuro: Alert and responsive, No focal deficits noted Abdomen: Soft, Non-Tender Skin: Other (right radial access site healing well. No bleeding, hematoma or ecchymosis noted.) Musculoskeletal: No Chest Wall Tenderness Extremities: No Clubbing, No Cyanosis, No Edema, Normal Pulses
[2016-12-21] MEDS ORDERED: Furosemide 40 MG TABLET PO SCH (09:00)
== END 2016-12-20 12:30 | disposition home or self-care (01) | DRG 246 ==
LOC: 2NENU 10:01 → EMEROO 10:01 → 2ANU 12:27 → SUATTDRO 14:18
PROVIDERS: ADMIT Internal Medicine; ATTEND Internal Medicine Endocrinology, Diabetes & Metabolism

== ENCOUNTER 2017-04-21 11:59 | Observation (INO) ==
[2017-04-21] MEDS ORDERED: Nitroglycerin 25 MG/250 ML INFUS..BTL IVC SCH (12:15)
[2017-04-21] MEDS ORDERED: Aspirin 81 MG TAB.CHEW PO ONE (12:15)
[2017-04-21] MEDS ORDERED: 0.9 % Sodium Chloride 500 ML IVC ONE (12:15)
[2017-04-21 12:44] LABS: Basophils # 0.1 K/mcL (0.0-0.2); Basophils % 0.8 %; Eosinophils # 0.2 K/mcL (0.0-0.6); Eosinophils % 1.5 %; Hematocrit 40.3 % (37.5-50.1); Hemoglobin 13.7 g/dL (12.9-16.9); Immature Granulocytes % 0.6 % (0-4); Lymphocytes # 2.9 K/mcL (0.6-4.6); Lymphocytes % 27.5 %; Mean Corpuscular Hemoglobin 31.2 pg (28.0-33.3); Mean Corpuscular Volume 91.8 fL (83.0-100.0); Mean Platelet Volume 10.8 fL (9.4-12.4); Monocytes # 0.6 K/mcL (0.0-1.3); Monocytes % 5.5 %; Neutrophils # 6.7 K/mcL (1.6-8.9); Platelet Count 191 K/mcL (140-400); Red Blood Count 4.39 M/mcL (4.19-5.50); Red Cell Distribution Width 13.2 % (11.5-14.5); Segmented Neutrophils % 64.1 %
[2017-04-21 12:51] LABS: INR 1.2; Prothrombin Time 12.8 Seconds (9.4-12.1)
[2017-04-21 12:55] LABS: BUN/Creatinine Ratio 14 (6-26); Blood Urea Nitrogen 13 mg/dL (8-26); Carbon Dioxide 26 mEq/L (19-29); Chloride 104 mEq/L (98-109); Glucose 167 mg/dL (70-99); Osmolality,Calculated 292 (280-300); Potassium 3.7 mEq/L (3.5-4.5); Sodium 139 mEq/L (136-145); eGFR For African Americans > 60 (> 60); eGFR For Non-African Americans > 60 (> 60)
--- NOTE | 2017-04-21 14:04 | Event Note ---
Date of Encounter: 04/21/17 Time of Encounter: 14:02 1. Chest pain improved on nitroglycerin, consider possible unstable angina with history of CAD status post drug-eluting stents in the circumflex and RCA back in November Continue nitroglycerin drip, continue aspirin, Brilinta, metoprolol, Lipitor, morphine as needed Limited echocardiogram, cardiology consult Follow troponins, lipid panel in the morning 2. Diabetes type 2 not insulin-dependent, continue insulin sliding scale 3. Atrial fibrillation not on anticoagulation 4. Hypertension Stable Omeprazole for GI prophylaxis and Lovenox for deep prophylaxis. The patient will be admitted for observation. Full code. Time spent on this admission 40 minutes. H&P to be completed by SEAMUS Pichardo
[2017-04-21] MEDS ORDERED: Naloxone 0.4 MG/ML INJ IVP PRN (14:10)
[2017-04-21] MEDS ORDERED: Acetaminophen 325 MG TABLET PO PRN (14:10)
[2017-04-21] MEDS ORDERED: *HR* Dextrose 50 % in Water (Syg) 50 ML SYRINGE IVP PRN (14:16)
[2017-04-21] MEDS ORDERED: Dextrose Gel 15 GM PO PRN ×2 (14:16)
[2017-04-21] MEDS ORDERED: D5% in Water 1,000 ML IVC PRN (14:16)
--- NOTE | 2017-04-21 14:30 | Internal Med History&Physical ---
<Gladis Pichardo - Last Filed: 04/21/17 14:54> Date of Encounter: 04/21/17 Time of Encounter: 14:20 Assessment and Plan (1) CAD (coronary artery disease), [place] coronary artery Current visit: Yes Status: Acute S/p PCI 11/2016. Now with chest occurring at rest. ASA given in ED and nitro gtt started. Initial troponin negative, EKG without acute ST changes. Cycle troponin , repeat echo. Cardiology consulted (discussed with Dr. Henson). Cont home ASA, brillenta, nitrate, BB, statin Qualifiers: [place] vs. transplanted heart: [place] heart Associated angina: with unstable angina Qualified Code(s): I25.110 - Atherosclerotic heart disease of [place] coronary artery with unstable angina pectoris (2) Atrial fibrillation Current visit: No Status: Chronic during 11/2016 hospitalization. Was started on Xarelto at that time and dose decreased due to bleeding. Patient reports Xarelto was stopped per Supervisor Cell Maintenance at 1 month follow-up. EKG with SB. Cont BB. Defer anticoagulation to Cardiology Qualifiers: Atrial fibrillation type: paroxysmal Qualified Code(s): I48.0 - Paroxysmal atrial fibrillation (3) Chronic systolic CHF (congestive heart failure) Current visit: Yes Status: Acute 11/2016 TTE with moderate-severe LV systolic dysfunction, LVEF 35% and diffuse hypokinesis. BNP, CXR unremarkable. Appears compensated. Daily weights, I&Os, cont home lasix, ASA, BB (4) HTN (hypertension) Current visit: No Status: Chronic per hx. BP controlled in the ED. Cont home BP medications. Monitor BP and titrate PRN. José in the ED, parameters added to BB Qualifiers: Hypertension type: essential hypertension Qualified Code(s): I10 - Essential (primary) hypertension (5) Diabetes Current visit: No Status: Chronic Uncontrolled diabetes. Hgb A1c 10 12/2016. Holding home oral hypoglycemics. SSI. 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 Myers is a 61 year old male with PMH CAD, HTN, diabetes and COPD who presented to [facility] on 04/21/2017 with complaints of chest pain. He was started on a nitro gtt in the ED and admitted for ACS work-up. Information obtained form chart review and patient report. Patient says he was driving today when he had acute onset chest pain, mid-sternal, described as tightness, rated 8/10, improved with SL nitro. Tightness returned so he came to ER. No CP on my exam, no SOB. Reports associated lightheadedness, sweating. Also reports medication compliance, says sx's are similar to initial presentation 11/2016 when stents were placed Past Med Surg Social Fam HX - Past Medical History Medical history: arthritis, asthma, CHF, COPD, coronary artery disease, diabetes , hyperlipidemia, hypertension, migraine, myocardial infarction Psychiatric history: no psych history - Past Surgical History Surgical History: angioplasty/stent, cholecystectomy - Social History Smoking Status: Former smoker Smokeless Tobacco Status: No Alcohol use: none Drug use: none - Family History Mother Adopted: Yes Internal Medicine - H&P: Meds Aspirin 81 mg PO DAILY 12/16/16 [History] Atorvastatin [Lipitor] 40 mg PO HS 12/16/16 [History] Fish Oil/Dha/Epa [Fish Oil 1,200 mg Fish Oil] 1 each PO DAILY 12/16/16 [History] Metformin HCl [Glucophage] 1,000 mg PO BID 12/16/16 [History] glipiZIDE [Glipizide] 10 mg PO DAILY 12/16/16 [History] Furosemide [Lasix] 40 mg PO DAILY #30 tablet 12/20/16 [Rx] Potassium Chloride 20 meq PO DAILY #60 tab.er.prt 12/20/16 [Rx] Ticagrelor [Brilinta] 90 mg PO BID #30 tablet 12/20/16 [Rx] amLODIPine [Norvasc] 10 mg PO DAILY #60 tablet 12/20/16 [Rx] Albuterol Sulfate [Ventolin Hfa] 90 gm IH Q4H 02/12/17 [History] Ascorbate Calcium/Bioflavonoid [Brigitte-C 1,000 mg Tablet] 1 each PO DAILY [History] Budesonide/Formoterol 160/4.5 [Symbicort 160/4.5] 2 puff IH BIDR 02/12/17 [ History] Citalopram [CeleXA] 20 mg PO DAILY 02/12/17 [History] Isosorbide MONOnitrate (24 HR) [Imdur] 60 mg PO DAILY 02/12/17 [History] Losartan [Cozaar] 50 mg PO DAILY 02/12/17 [History] Metoprolol XL (24 HR) Succ [Toprol Xl] 50 mg PO BID 02/12/17 [History] Multivit-Min/FA/Lycopen/Lutein [Centrum Silver Men Tablet] 1 each PO DAILY 02/12 [History] Nitroglycerin [Nitrostat] 0.4 mg SL PRN PRN 02/12/17 [History] Allergies lisinopril Adverse Reaction (Verified 12/16/16 11:17) Cough All Systems PM: A 10-system review of systems was performed and is negative for pertinent findings except as documented above in the HPI. - Constitutional Constitutional: no chills, no fever(s), no night sweats - EENT Eyes: no change in vision, no discharge, no pain, no photophobia Ears: no ear discharge, no ear pain, no tinnitus Nose, mouth and throat: no dysphagia, no nasal discharge, no neck pain, no sore throat - Cardiovascular Cardiovascular ROS IM: chest pain, diaphoresis, lightheadedness, no dyspnea, no palpitations, no syncope - Respiratory Respiratory: no cough, no dyspnea, no wheezing, no excessive phlegm production - Gastrointestinal Gastrointestinal: no abdominal pain, no diarrhea, no hematemesis, no hematochezia, no melena, no nausea, no vomiting - Musculoskeletal Musculoskeletal ROS IM: no numbness, no tingling - Integumentary Integumentary IM: no rash, no unusual bruising - Neurological Neurological ROS: no confusion, no convulsions, no focal weakness, no numbness, no tingling, no tremor(s) - Hematologic/Lymphatic Hematologic/Lymphatic: no easy bruising - Constitutional Vitals: Temp Pulse Resp BP Pulse Ox 97.7 F 59 20 157/79 97 04/21/17 12:01 04/21/17 13:48 04/21/17 13:48 04/21/17 13:48 04/21/17 13:48 - Head Head exam: Present: atraumatic, normocephalic - Eye Eye exam: Present: PERRL, conjuntiva pink, sclera anicteric Pupils: Present: PERRL - Neck Neck exam general surgery: Present: supple, trachea midline. Absent: lymphadenopathy - Respiratory Respiratory exam: Present: CTAB. Absent: accessory muscle use, rales, rhonchi, wheezes - Cardiovascular Cardiovascular exam: Present: RRR, +S1, +S2. Absent: diastolic murmur, gallop, rubs, systolic murmur - GI/Abdominal GI/Abdominal exam: Present: normal bowel sounds, soft, no peritoneal signs. Absent: distended, tenderness - Extremities Exam Extremities exam: Present: warm, radial pulses palpable and symetrical. Absent : calf tenderness, cyanotic, pedal edema - Neurological Exam Neurological exam: Present: CN II-XII intact, oriented X3, no focal deficits. Absent: pronater drift, facial droop, speech deficit - Skin Skin exam: Present: dry, intact Internal Med - H&P Results - Labs CBC & Chem 7: 04/21/17 12:37 04/21/17 12:37 Labs: Short CBC 04/21/17 Range/Units 12:37 WBC 10.5 (4.3-11.1) K/mcL Hgb 13.7 (12.9-16.9) g/dL Hct 40.3 (37.5-50.1) % Plt Count 191 (140-400) K/mcL Neutrophils # 6.7 (1.6-8.9) K/mcL BMP 04/21/17 12:37 Sodium 139 Potassium 3.7 Chloride 104 Carbon Dioxide 26 BUN 13 Creatinine 0.91 Glucose 167 H Calcium 10.0 Cardiac Enzymes 04/21/17 Range/Units 12:37 Troponin I 0.01 (0-0.03) ng/mL - EKG Data -: EKG Interpreted by Myself Rate: bradycardia - EKG Data Prior EKG available for review: yes EKG comments: 04/21/17 14:33 Sinus bradycardia - Impressions ITS Impressions Chest X-Ray 04/21/17 12:15 IMPRESSION: No acute abnormality. D/ / Nuno Harrington MD / Nuno Harrington MD Interpreting Provider: Nuno Harrington MD <Tanmay Parr H - Last Filed: 04/21/17 15:22> Date of Encounter: 04/21/17 Internal Medicine - H&P: HPI History of present illness: Mr. Myers is a 61 year old male All Systems PM: A 10-system review of systems was performed and is negative for pertinent findings except as documented above in the HPI. - Constitutional Vitals: Temp Pulse Resp BP Pulse Ox 97.7 F 59 20 157/79 97 04/21/17 12:01 04/21/17 13:48 04/21/17 13:48 04/21/17 13:48 04/21/17 13:48 Internal Med - H&P Results - Labs CBC & Chem 7: 04/21/17 12:37 04/21/17 12:37 Labs: Short CBC 04/21/17 Range/Units 12:37 WBC 10.5 (4.3-11.1) K/mcL Hgb 13.7 (12.9-16.9) g/dL Hct 40.3 (37.5-50.1) % Plt Count 191 (140-400) K/mcL Neutrophils # 6.7 (1.6-8.9) K/mcL BMP 04/21/17 12:37 Sodium 139 Potassium 3.7 Chloride 104 Carbon Dioxide 26 BUN 13 Creatinine 0.91 Glucose 167 H Calcium 10.0 Cardiac Enzymes 04/21/17 Range/Units 12:37 Troponin I 0.01 (0-0.03) ng/mL - Impressions ITS Impressions Chest X-Ray 04/21/17 12:15 IMPRESSION: No acute abnormality. D/ / Nuno Harrington MD / Nuno Harrington MD Interpreting Provider: Nuno Harrington MD - Attending Attestation 1. Chest pain improved on nitroglycerin, consider possible unstable angina with history of CAD status post drug-eluting stents in the circumflex and RCA back in November Continue nitroglycerin drip, continue aspirin, Brilinta, metoprolol, Lipitor, morphine as needed Limited echocardiogram, cardiology consult Follow troponins, lipid panel in the morning 2. Diabetes type 2 not insulin-dependent, continue insulin sliding scale 3. Atrial fibrillation not on anticoagulation (was on Xarelto but had to be stopped due to bleeding episodes) 4. Hypertension Stable Omeprazole for GI prophylaxis and Lovenox for deep prophylaxis. The patient will be admitted for observation. Full code. Time spent on this admission 40 minutes. For this encounter, I have reviewed the CHLORINE OPERATOR or PA documentation, treatment plan, and medical decision making; and I have had face to face time with this patient.
[2017-04-21 14:58] LABS: Hemoglobin A1C 6.5 %
--- NOTE | 2017-04-21 15:23 | Emergency Department Note ---
Disposition Clinical Impression: Chest pain Qualifiers: Chest pain type: unspecified Qualified Code(s): R07.9 - Chest pain, unspecified Disposition: Admitted As Inpatient Condition: Good Forms: ED Satisfaction Letter Time of Disposition: 15:28 Chest Pain HPI - General Chief Complaint: ED Chest Pain Stated Complaint: chest pain Time Seen by Provider: 04/21/17 12:04 Source: patient Mode of arrival: EMS Limitations: no limitations Vital Signs Reviewed: Yes Nursing Notes Reviewed: Yes - History of Present Illness HPI Narrative: Patient presents to emergency room with complaint of chest pain. History of myocardial infarction in November of this year that required stenting. Symptoms are similar to that. He took 2 nitroglycerin with minimal relief in symptoms came back immediately. Denies any other symptoms or complaints prior to today. Pt complaint: chest pain Onset (ago): Just [employer] Duration: constant Onset: during rest Pain Location: substernal, left chest Severity: mild Severity scale (1-10): 0 Quality: tightness, heaviness Pain Radiation: none Improves with: nitroglycerin Worsens with: exertion, inspiration Treatments prior to arrival chest pain: aspirin, nitroglycerin - Related Data Home Medications Medication Instructions Recorded Confirmed Aspirin 81 mg PO DAILY 12/16/16 04/21/17 Atorvastatin [Lipitor] 40 mg PO HS 12/16/16 04/21/17 Fish Oil/Dha/Epa [Fish Oil 1,200 1 each PO DAILY 12/16/16 04/21/17 mg Fish Oil] Metformin HCl [Glucophage] 1,000 mg PO BID 12/16/16 04/21/17 glipiZIDE [Glipizide] 10 mg PO DAILY 12/16/16 04/21/17 Albuterol Sulfate [Ventolin Hfa] 90 gm IH Q4H 02/12/17 04/21/17 Ascorbate Calcium/Bioflavonoid 1 each PO DAILY 02/12/17 04/21/17 [Brigitte-C 1,000 mg Tablet] Budesonide/Formoterol 160/4.5 2 puff IH BIDR 02/12/17 04/21/17 [Symbicort 160/4.5] Citalopram [CeleXA] 20 mg PO DAILY 02/12/17 04/21/17 Isosorbide MONOnitrate (24 HR) 60 mg PO DAILY 02/12/17 04/21/17 [Imdur] Losartan [Cozaar] 50 mg PO DAILY 02/12/17 04/21/17 Metoprolol XL (24 HR) Succ [Toprol 50 mg PO BID 02/12/17 04/21/17 Xl] Multivit-Min/FA/Lycopen/Lutein 1 each PO DAILY 02/12/17 04/21/17 [Centrum Silver Men Tablet] Nitroglycerin [Nitrostat] 0.4 mg SL PRN PRN 02/12/17 04/21/17 Previous Rx's Medication Instructions Recorded Furosemide [Lasix] 40 mg PO DAILY #30 tablet 12/20/16 Potassium Chloride 20 meq PO DAILY #60 tab.er.prt 12/20/16 Ticagrelor [Brilinta] 90 mg PO BID #30 tablet 12/20/16 amLODIPine [Norvasc] 10 mg PO DAILY #60 tablet 12/20/16 Allergies Allergy/AdvReac Type Severity Reaction Status Date / Time lisinopril AdvReac Cough Verified 12/16/16 11:17 All systems ED: reviewed and negative except as stated. Review of Systems: As Per HPI Constitutional: Denies: fever, chills Cardiovascular: Reports: chest pain, dyspnea on exertion. Denies: palpitations , orthopnea, edema Respiratory: Denies: cough, dyspnea, wheezes Gastrointestinal: Denies: abdominal pain, nausea, vomiting, diarrhea Genitourinary: Denies: urgency, dysuria, frequency, hematuria Musculoskeletal: Denies: back pain, neck pain Integumentary: Denies: rash Neurological: Denies: headache, weakness Psychiatric: Denies: anxiety, depression Endocrine: Denies: fatigue Chest Pain PMH - Past Medical History Medical history: Reports: arthritis, asthma, CHF, COPD, coronary artery disease , diabetes, hyperlipidemia, hypertension, migraine, myocardial infarction Surgical history: Reports: angioplasty/stent, cholecystectomy Psychiatric history: Reports: no psych history - Social History Smoking Status: Former smoker Alcohol use: Reports: none Drug use: Reports: none Physical Exam - General Limitations: no limitations General appearance: alert - Head Head exam: atraumatic, normocephalic, normal inspection - Eye Eye exam: Present: normal appearance, PERRL, EOMI. Absent: miosis, mydriasis - Chest Chest inspection: Present: normal inspection, symmetric chest wall rise. Absent : tenderness - Respiratory Respiratory exam: Present: normal lung sounds bilaterally. Absent: respiratory distress, wheezes - Cardiovascular Cardiovascular exam: Present: regular rate, normal rhythm, normal heart sounds - Abdominal Exam Abdominal exam: Present: soft, Non-Tender, normal bowel sounds. Absent: tenderness, distention, guarding, rebound, rigidity, bruit, pulsatile mass, hernia - Extremities Exam Extremities exam: Present: normal inspection, full ROM, normal capillary refill. Absent: tenderness - Back Exam Back exam: Present: normal inspection, full ROM - Neurological Exam Neurological exam: Present: alert, oriented X3, CN II-XII intact, normal gait - Skin Skin exam: Present: warm, dry, intact, normal color Course Course Narrative: Patient seen and examined the time of arrival. See history of present illness. 61-year-old male with recent myocardial infarction requiring stenting presents emergency room with identical symptoms. Vital signs at presentation shows stable heart rate and blood pressure. Patient still has substernal chest pain radiating in the left chest and neck. Patient denies any other symptoms leading up to this. He took 2 nitroglycerin at home which did resolve his symptoms for several seconds and only came immediately back. Patient denies any recent illnesses no medication changes denies any trauma or injury. Patient is concerning for acute coronary syndrome. Immediate EKG was collected showed sinus rhythm with no other acute pathology. Troponin EKG chest x-ray and screening laboratory workup to be completed. Nitroglycerin drip to be started this time secondary to pain response to nitroglycerin and then immediate return. Patient is concerning for progression or reemergence of angina-like symptoms. He only has nitroglycerin at home and does not appear to be any long-acting nitrates at this time. Disposition pending treatment course. Physical exam is otherwise benign. Lungs are clear heart is regular abdomen is soft no pulsatile lesions or masses. Patient is mentating appropriately is currently on brilinta. Aspirin to be given as well and protocol - Reevaluation(s) Reevaluation #1: Patient found a negative troponin EKG was repeated 45 minutes after arrival shows no change in morphology. Symptoms of been completely resolved with the nitroglycerin. Patient will be admitted at this time for acute coronary syndrome rule out. Hospitalist Dr. mesa and I reviewed the presentation symptoms. No other recommendations at this time except for the patient to be evaluated in the hospital setting. Heparin was not recommended at this point. Patient is currently on antiplatelet medication but will require further anticoagulation in the inpatient setting if patient is determined to be acute coronary syndrome evaluation. Patient is otherwise resting comfortably in bed in no distress vital signs are stable patient family were informed and they are comfortable with this plan. We will continue to monitor him here and the emergency room to the admission process is completed Time: 15:27 Vital Signs Temperature 97.7 F 04/21/17 12:01 Pulse Rate 65 04/21/17 12:01 Respiratory Rate 22 04/21/17 12:01 Blood Pressure 144/72 04/21/17 12:01 O2 Sat by Pulse Oximetry 97 04/21/17 12:01 Temperature 97.7 F 04/21/17 12:01 Pulse Rate 59 04/21/17 13:48 Respiratory Rate 20 04/21/17 13:48 Blood Pressure 157/79 04/21/17 13:48 O2 Sat by Pulse Oximetry 97 04/21/17 13:48 Oxygen Delivery Oxygen Delivery Nasal Cannula Chest Pain - MDM Narrative Medical decision making narrative: Acute coronary syndrome, chest pain, angina - Medical Records Medical records reviewed: Yes I reviewed the patient's medical records. - Lab Data Lab results reviewed: Yes I reviewed the patient's lab results. Result diagrams: 04/21/17 12:37 04/21/17 12:37 Lab Results 04/21/17 04/21/17 04/21/17 Range/Units 12:37 12:37 12:37 WBC 10.5 (4.3-11.1) K/mcL RBC 4.39 (4.19-5.50) M/mcL Hgb 13.7 (12.9-16.9) g/dL Hct 40.3 (37.5-50.1) % MCV 91.8 (83.0-100.0) fL MCH 31.2 (28.0-33.3) pg MCHC 34.0 (31.6-35.5) g/dL RDW 13.2 (11.5-14.5) % Plt Count 191 (140-400) K/mcL MPV 10.8 (9.4-12.4) fL Immature Gran % 0.6 (0-4) % Seg Neutrophils % 64.1 % Lymphocytes % 27.5 % Monocytes % 5.5 % Eosinophils % 1.5 % Basophils % 0.8 % Neutrophils # 6.7 (1.6-8.9) K/mcL Lymphocytes # 2.9 (0.6-4.6) K/mcL Monocytes # 0.6 (0.0-1.3) K/mcL Eosinophils # 0.2 (0.0-0.6) K/mcL Basophils # 0.1 (0.0-0.2) K/mcL PT 12.8 H (9.4-12.1) Seconds INR 1.2 APTT 33.0 (26.0-36.0) Seconds Sodium (136-145) mEq/L Potassium (3.5-4.5) mEq/L Chloride (98-109) mEq/L Carbon Dioxide (19-29) mEq/L BUN (8-26) mg/dL Creatinine (0.72-1.25) mg/dL Est GFR ( Amer) (> 60) Est GFR (Non-Af Amer) (> 60) BUN/Creatinine Ratio (6-26) Glucose (70-99) mg/dL Est Mean Plasma Glucose mg/dl Hemoglobin A1c ( - 5.6) % Calculated Osmolality (280-300) Calcium (8.6-10.8) mg/dL Troponin I (0-0.03) ng/mL B-Natriuretic Peptide 75 (0-100) pg/mL 04/21/17 04/21/17 04/21/17 Range/Units 12:37 12:37 14:40 WBC (4.3-11.1) K/mcL RBC (4.19-5.50) M/mcL Hgb (12.9-16.9) g/dL Hct (37.5-50.1) % MCV (83.0-100.0) fL MCH (28.0-33.3) pg MCHC (31.6-35.5) g/dL RDW (11.5-14.5) % Plt Count (140-400) K/mcL MPV (9.4-12.4) fL Immature Gran % (0-4) % Seg Neutrophils % % Lymphocytes % % Monocytes % % Eosinophils % % Basophils % % Neutrophils # (1.6-8.9) K/mcL Lymphocytes # (0.6-4.6) K/mcL Monocytes # (0.0-1.3) K/mcL Eosinophils # (0.0-0.6) K/mcL Basophils # (0.0-0.2) K/mcL PT (9.4-12.1) Seconds INR APTT (26.0-36.0) Seconds Sodium 139 (136-145) mEq/L Potassium 3.7 (3.5-4.5) mEq/L Chloride 104 (98-109) mEq/L Carbon Dioxide 26 (19-29) mEq/L BUN 13 (8-26) mg/dL Creatinine 0.91 (0.72-1.25) mg/dL Est GFR ( Amer) > 60 (> 60) Est GFR (Non-Af Amer) > 60 (> 60) BUN/Creatinine Ratio 14 (6-26) Glucose 167 H (70-99) mg/dL Est Mean Plasma Glucose 140 mg/dl Hemoglobin A1c 6.5 H ( - 5.6) % Calculated Osmolality 292 (280-300) Calcium 10.0 (8.6-10.8) mg/dL Troponin I 0.01 (0-0.03) ng/mL B-Natriuretic Peptide (0-100) pg/mL - Radiology Data Radiology results reviewed: Yes I reviewed the patient's radiology results. Chest x-ray is stable - EKG Data EKG attestation: Yes I reviewed and interpreted this EKG. EKG shows normal: sinus rhythm, axis, intervals, QRS complexes, ST-T waves Rate: normal Rhythm: NSR [place]/QRS: normal When compared to previous EKG there are: no significant changes Interpretation: no acute changes, unchanged when compared to prior tracing (date ) (Repeat EKG completed 45 9 service identical morphology) Heart Score - Score History: Moderately Suspicious EKG: Non Specific repolarisation Disturbance Age: 45-65 Risk Factors: Equal/Greater than 3 risk factor or history of atherosclerotic disease Troponin: Less than normal limit HEART Score Total: 5 Critical Care Time Critical Care Time: Yes Total Critical Care Time: 35 Attestation: Critical care performed: Time is exclusive of separately billable procedures. Time includes: direct patient care, patient reassessment, coordination of patient care, interpretation of data (laboratory data, radiology data, and respiratory data), review of patient's medical records, medical consultation and documentation of patient care. Procedures included in critical care time: Procedures excluded from critical care time:
--- NOTE | 2017-04-21 16:42 | Electrocardiograph Report ---
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
--- NOTE | 2017-04-21 16:42 | Electrocardiograph Report ---
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
[2017-04-21] MEDS: *HR* Ticagrelor 90 MG TABLET PO SCH ×2 (18:16→22:06)
[2017-04-21] MEDS: Insulin LISPRO 300 UNITS/3 ML VIAL SQ SCH ×2 (18:17→22:56)
[2017-04-21] MEDS: Budesonide/Formoterol 160/4.5 MDI IH SCH (20:53)
[2017-04-21] MEDS: Metoprolol XL (24 HR) Succ 50 MG TAB.ER.24H PO SCH (20:54)
[2017-04-21] MEDS ORDERED: *HR* Ticagrelor 90 MG TABLET PO SCH (21:00)
[2017-04-22 00:44] LABS: Basophils # 0.1 K/mcL (0.0-0.2); Basophils % 0.8 %; Eosinophils # 0.2 K/mcL (0.0-0.6); Eosinophils % 1.6 %; Hematocrit 39.1 % (37.5-50.1); Hemoglobin 13.1 g/dL (12.9-16.9); Immature Granulocytes % 0.3 % (0-4); Lymphocytes # 2.4 K/mcL (0.6-4.6); Lymphocytes % 26.1 %; Mean Corpuscular HGB Conc 33.5 g/dL (31.6-35.5); Mean Corpuscular Volume 92.7 fL (83.0-100.0); Mean Platelet Volume 10.6 fL (9.4-12.4); Monocytes # 0.6 K/mcL (0.0-1.3); Platelet Count 148 K/mcL (140-400); Red Blood Count 4.22 M/mcL (4.19-5.50); Red Cell Distribution Width 13.2 % (11.5-14.5); Segmented Neutrophils % 65.2 %
[2017-04-22 00:59] LABS: Alanine Aminotransferase 39 Units/L (0-55); Albumin 3.4 g/dL (3.5-5.0); Alkaline Phosphatase 99 Units/L (38-126); Aspartate Amino Transferase 31 Units/L (5-34); BUN/Creatinine Ratio 14 (6-26); Bilirubin,Total 0.7 mg/dL (0.2-1.2); Blood Urea Nitrogen 14 mg/dL (8-26); Calcium 9.6 mg/dL (8.6-10.8); Carbon Dioxide 27 mEq/L (19-29); Chloride 105 mEq/L (98-109); Chol/HDL Ratio 4.4 (0-4.9); Cholesterol 101 mg/dL (< 200); Globulin 3.5 g/dL (2.4-3.5); Glucose 168 mg/dL (70-99); HDL Cholesterol 23 mg/dL (40-59); LDL Cholesterol,Calculated 43 mg/dL (0-99); Osmolality,Calculated 294 (280-300); Potassium 3.6 mEq/L (3.5-4.5); Sodium 140 mEq/L (136-145); Total Protein 6.9 g/dL (6.0-8.3); Triglycerides 177 mg/dL (< 150); eGFR For African Americans > 60 (> 60); eGFR For Non-African Americans > 60 (> 60)
[2017-04-22] MEDS: *HR* Enoxaparin 40 MG/0.4 ML SYRINGE SQ SCH (05:22)
[2017-04-22] MEDS: Budesonide/Formoterol 160/4.5 MDI IH SCH ×2 (07:36→19:54)
[2017-04-22] MEDS ORDERED: Isosorbide MONOnitrate (24 HR) 60 MG TAB.ER.24H PO SCH (09:00)
[2017-04-22] MEDS: Insulin LISPRO 300 UNITS/3 ML VIAL SQ SCH ×4 (09:03→22:00)
[2017-04-22] MEDS: Furosemide 40 MG TABLET PO SCH (09:09)
[2017-04-22] MEDS: amLODIPine 5 MG TABLET PO SCH (09:09)
[2017-04-22] MEDS: Metoprolol XL (24 HR) Succ 50 MG TAB.ER.24H PO SCH ×2 (09:09→20:59)
[2017-04-22] MEDS: *HR* Ticagrelor 90 MG TABLET PO SCH ×2 (09:09→21:00)
[2017-04-22] MEDS: Aspirin 81 MG TAB.CHEW PO SCH (09:09)
--- NOTE | 2017-04-22 09:23 | Discharge Summary ---
Date of Encounter: 04/23/17 Time of Encounter: 09:19 - Discharge Diagnosis (1) Atrial fibrillation Priority: Secondary Status: Chronic Qualifiers: Atrial fibrillation type: paroxysmal Qualified Code(s): I48.0 - Paroxysmal atrial fibrillation (2) HTN (hypertension) Priority: Secondary Status: Chronic Qualifiers: Hypertension type: essential hypertension Qualified Code(s): I10 - Essential (primary) hypertension (3) Hyperlipemia Priority: Secondary Status: Chronic Qualifiers: Hyperlipidemia type: mixed hyperlipidemia Qualified Code(s): E78.2 - Mixed hyperlipidemia (4) Diabetes Priority: Secondary Status: Chronic Qualifiers: Diabetes mellitus type: type 2 Diabetes mellitus complication status: with unspecified complications Diabetes mellitus nursing home insulin use: with nursing home use Qualified Code(s): E11.8 - Type 2 diabetes mellitus with unspecified complications; 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 (5) Chest pain Priority: Primary Status: Acute Qualifiers: Chest pain type: unspecified Qualified Code(s): R07.9 - Chest pain, unspecified - Discharge Medications Home Medications: Aspirin 81 mg PO DAILY 12/16/16 [History] Atorvastatin [Lipitor] 40 mg PO HS 12/16/16 [History] Fish Oil/Dha/Epa [Fish Oil 1,200 mg Fish Oil] 1 each PO DAILY 12/16/16 [History] Metformin HCl [Glucophage] 1,000 mg PO BID 12/16/16 [History] glipiZIDE [Glipizide] 10 mg PO DAILY 12/16/16 [History] Furosemide [Lasix] 40 mg PO DAILY #30 tablet 12/20/16 [Rx] Potassium Chloride 20 meq PO DAILY #60 tab.er.prt 12/20/16 [Rx] Ticagrelor [Brilinta] 90 mg PO BID #30 tablet 12/20/16 [Rx] amLODIPine [Norvasc] 10 mg PO DAILY #60 tablet 12/20/16 [Rx] Albuterol Sulfate [Ventolin Hfa] 90 gm IH Q4H 02/12/17 [History] Ascorbate Calcium/Bioflavonoid [Brigitte-C 1,000 mg Tablet] 1 each PO DAILY [History] Budesonide/Formoterol 160/4.5 [Symbicort 160/4.5] 2 puff IH BIDR 02/12/17 [ History] Citalopram [CeleXA] 20 mg PO DAILY 02/12/17 [History] Isosorbide MONOnitrate (24 HR) [Imdur] 60 mg PO DAILY 02/12/17 [History] Losartan [Cozaar] 50 mg PO DAILY 02/12/17 [History] Metoprolol XL (24 HR) Succ [Toprol Xl] 50 mg PO BID 02/12/17 [History] Multivit-Min/FA/Lycopen/Lutein [Centrum Silver Men Tablet] 1 each PO DAILY 02/12 [History] Nitroglycerin [Nitrostat] 0.4 mg SL PRN PRN 02/12/17 [History] Acetaminophen [Tylenol] 650 mg PO Q6HR PRN tab 04/22/17 [Rx] Allergies/Adverse Reactions: Allergies lisinopril Adverse Reaction (Verified 12/16/16 11:17) Cough Date of admission: 04/21/17 15:32 Primary care physician: Damian Kim Jr, MD Discharging clinician: Doug Garcia Anticipated date of discharge: 04/23/17 - Patient Status Disposition: Home, Self-Care Condition: Good Overall status at discharge: patient is progressing back to baseline - Discharge Instructions Follow Up With: Damian Kim Jr, MD [Primary Care Provider] - 04/27/17 10:45 am - Diet and Activity Activity: resume usual activities as tolerated Diet: advance to your usual diet, diabetic diet, low fat, low cholesterol, low salt diet Interval History: C Hospital course: anay Myers is a 61-year-old male with past medical history significant for coronary artery disease diabetes hypertension dyslipidemia. He underwent cardiac stenting this year.he has returned with chest pain similar to his angina however his EKG and troponins ARE NEGATIVE. Admitting M.D. has consulted cardiology. We will keep him on his current Medication. Cardiology did cardiac as yesterday which was unremarkable all stents are patent. He will be discharged home - Time Spent with Patient Total time spent providing and/or coordinating discharge services: Greater than 30 minutes - Constitutional Vitals: Temp Pulse Resp BP Pulse Ox 97.6 F 59 20 131/92 94 04/22/17 07:32 04/22/17 07:32 04/22/17 07:36 04/22/17 07:32 04/22/17 07:36 - Head Head exam: Present: atraumatic, normocephalic - Eye Eye exam: Present: PERRL, conjuntiva pink, sclera anicteric Pupils: Present: PERRL - Neck Neck exam general surgery: Present: supple, trachea midline. Absent: lymphadenopathy - Respiratory Respiratory exam: Present: CTAB. Absent: accessory muscle use, rales, rhonchi, wheezes - Cardiovascular Cardiovascular exam: Present: RRR, +S1, +S2. Absent: diastolic murmur, gallop, rubs, systolic murmur - GI/Abdominal GI/Abdominal exam: Present: normal bowel sounds, soft, no peritoneal signs. Absent: distended, tenderness - Extremities Exam Extremities exam: Present: warm, radial pulses palpable and symetrical. Absent : calf tenderness, cyanotic, pedal edema - Neurological Exam Neurological exam: Present: CN II-XII intact, oriented X3, no focal deficits. Absent: pronater drift, facial droop, speech deficit - Skin Skin exam: Present: dry, intact
--- NOTE | 2017-04-22 10:14 | Cardiology Consult Note ---
Date of Encounter: 04/22/17 Time of Encounter: 10:14 Assessment and Plan (1) Unstable angina Current Visit: No Status: Acute Troponins negative x 3. No significant EKG changes. Chest pain intermittent over previous weeks, worsened yesterday--chest pain while driving with left arm numbness. Improved with 2 nitro, then recurred. Missed Brilinta dose yesterday AM. Recent PANTERA to mid LCx and pRCA 12/16/16. Symptoms somewhat similar to prior anginal equivalent. Currently on nitro gtt at 5mcg/minute with chest tightness 11/28. Medical management recent attempted as outpt--Imdur and BB increased at visit . Given recurrent symptoms despite optimal medical therapy, recommend [facility] to further evaluate. R/B/A discussed. Pt agrees to proceed. [facility] today. EF 35% 11/2016. Recheck echo. Continue Nitro gtt, ASA, Statin, Brilinta, BB, ARB. (2) CAD (coronary artery disease), [place] coronary artery Current Visit: Yes Status: Chronic S/P NSTEMI 12/16/16 with PANTERA to mid LCx and pRCA. Missed dose of Brilinta yesterday morning. Recommend DAPT (ASA and Brilinta) uninterrupted x 1 year. Continue Statin, BB, ARB. EF 35% 11/2016. Recheck echo. Qualifiers: [place] vs. transplanted heart: [place] heart Associated angina: with unstable angina Qualified Code(s): I25.110 - Atherosclerotic heart disease of [place] coronary artery with unstable angina pectoris (3) Chronic systolic CHF (congestive heart failure) Current Visit: Yes Status: Acute EF 35% 12/16/16. Pt euvolemic on exam. Negative CXR and BNP. Continue PO Lasix. (4) Atrial fibrillation and flutter Current Visit: No Status: Chronic Currently SR. Known hx of PAF/FL. Continue BB. CHADSVASC score 3 (CAD, CHF, DM). Not on chronic anticoagulation due to rectal bleeding on DAPT and needing DAPT until 11/2017. Continue ASA and Brilinta. (5) Cardiomyopathy Current Visit: No Status: Chronic EF 35% 11/2016. Continue BB and ARB. Recheck echo. Qualifiers: Cardiomyopathy type: ischemic Qualified Code(s): I25.5 - Ischemic cardiomyopathy Discussion w patient/family: The assessment and plan as outlined above was discussed with the patient and/or family members who expressed understanding and agreement. All questions were answered. Thank you for involving us in the care of your patient. Please call with any questions. I will discuss all the above with Dr. Marcus Henson and make changes as necessary. History of Present Illness Consult date: 04/22/17 Requesting physician: Doug Garcia Consult reason: Chest pain Chief complaint: chest pain History of present illness: Mr. Myers is a 61 year old male with PMH of prior tobacco abuse, HTN, HLD, DM2, PAF, CAD with NSTEMI and PCI 11/2016 (PANTERA to mid LCx and pRCA), systolic CHF EF 35%, ICMP. He presents with chest pain that has been intermittent, but worsened yesterday while driving. Chest pain is described as left sided and midsternal, intermittent with left arm numbness and dyspnea. Symptoms somewhat similar to prior anginal equivalent. He took 2 nitro which helped, but pain returned which prompted him to go to ED. He saw Dr. Carlson 04/14/17 at which time Imdur was increased to 120mg daily and Toprol XL was increased to 200mg daily for chest pain complaints. He is on nitro gtt at 5mcg/min, chest pain is 3/10. He reports missing one dose of Brilinta yesterday morning prior to chest pain starting. Troponins negative x 3. Prior CV testing: TTE 08/22/15: LVEF 55-60%, severely dilated LA, no significant valvular dysfunction. [facility] 12/16/16: PANTERA to mid LCx and pRCA. TTE 12/16/16: LVEF 35% (diffuse hypokinesis with regional variations), mild LVH, mildly dilated LA, no significant valvular dysfunction. Past Med Surg Social Fam HX - Past Medical History Medical history: arthritis, asthma, atrial fibrillation, CHF, COPD, coronary artery disease, diabetes, hyperlipidemia, hypertension, migraine, myocardial infarction Psychiatric history: no psych history - Past Surgical History Surgical History: angioplasty/stent, cholecystectomy - Social History Smoking Status: Former smoker Smokeless Tobacco Status: No Alcohol use: none Drug use: none - Family History Mother Adopted: Yes Name: josselyn mayer Family Member Ethnicity: Non- Living Status: Still Living Hx Family Cancer: Yes Medications and Allergies Aspirin 81 mg PO DAILY 12/16/16 [History] Atorvastatin [Lipitor] 40 mg PO HS 12/16/16 [History] Fish Oil/Dha/Epa [Fish Oil 1,200 mg Fish Oil] 1 each PO DAILY 12/16/16 [History] Metformin HCl [Glucophage] 1,000 mg PO BID 12/16/16 [History] glipiZIDE [Glipizide] 10 mg PO DAILY 12/16/16 [History] Furosemide [Lasix] 40 mg PO DAILY #30 tablet 12/20/16 [Rx] Potassium Chloride 20 meq PO DAILY #60 tab.er.prt 12/20/16 [Rx] Ticagrelor [Brilinta] 90 mg PO BID #30 tablet 12/20/16 [Rx] amLODIPine [Norvasc] 10 mg PO DAILY #60 tablet 12/20/16 [Rx] Albuterol Sulfate [Ventolin Hfa] 90 gm IH Q4H 02/12/17 [History] Ascorbate Calcium/Bioflavonoid [Brigitte-C 1,000 mg Tablet] 1 each PO DAILY [History] Budesonide/Formoterol 160/4.5 [Symbicort 160/4.5] 2 puff IH BIDR 02/12/17 [ History] Citalopram [CeleXA] 20 mg PO DAILY 02/12/17 [History] Isosorbide MONOnitrate (24 HR) [Imdur] 60 mg PO DAILY 02/12/17 [History] Losartan [Cozaar] 50 mg PO DAILY 02/12/17 [History] Metoprolol XL (24 HR) Succ [Toprol Xl] 50 mg PO BID 02/12/17 [History] Multivit-Min/FA/Lycopen/Lutein [Centrum Silver Men Tablet] 1 each PO DAILY 02/12 [History] Nitroglycerin [Nitrostat] 0.4 mg SL PRN PRN 02/12/17 [History] Acetaminophen [Tylenol] 650 mg PO Q6HR PRN tab 04/22/17 [Rx] Allergies lisinopril Adverse Reaction (Verified 12/16/16 11:17) Cough All Systems Review: A 10-system review of systems was performed and is negative for pertinent findings except as documented above in the HPI. - Cardiovascular Cardiovascular: as per HPI, chest pain at rest, chest pain with exertion, dyspnea at rest, dyspnea on exertion, radiating jaw, neck or arm pain - Respiratory Respiratory: dyspnea Physical Examination Vital Signs, Last 4 Hours Temp Pulse Resp BP Pulse Ox 04/22/17 07:36 20 94 04/22/17 07:32 97.6 F 59 18 131/92 95 Vital Signs Temp Pulse Resp BP Pulse Ox 04/22/17 07:36 20 94 04/22/17 07:32 97.6 F 59 18 131/92 95 04/22/17 03:47 97.8 F 52 18 142/70 96 04/22/17 00:47 97.9 F 60 16 153/61 98 04/21/17 20:53 16 97 04/21/17 20:44 99 04/21/17 19:46 96.7 F L 66 16 160/76 99 04/21/17 16:26 97.6 F 55 16 148/67 98 04/21/17 16:02 20 135/77 04/21/17 15:25 61 18 168/73 95 04/21/17 13:48 59 20 157/79 97 04/21/17 13:23 58 20 125/70 95 04/21/17 12:10 61 20 125/79 96 04/21/17 12:01 97.7 F 65 22 144/72 97 Intake and Output 04/21/17 04/22/17 04/22/17 23:59 07:59 15:59 Intake Total 120 / 120 0 / 0 Balance 120 / 120 0 / 0 Intake: Oral 120 / 120 0 / 0 Other: # Voids 0 1 Weight 129 kg 128.4 kg Blood Glucose* 198 130 Patient Weight 04/22/17 23:59 Weight 128.4 kg General: Conversant, No Apparent Distress HEENT: Atraumatic, Normocephaly, Mucus Membranes Moist Neck: No JVD, Normal carotid pulses Cardiac: Reg Rate and Rhythm, Normal S1 and S2, No Murmur Lungs: Normal Breath Sounds, No Wheeze, Rales, Rhonchi Neuro: Alert and responsive, No focal deficits noted Abdomen: Soft, Non-Tender Skin: No rashes noted on visualized skin Musculoskeletal: No Chest Wall Tenderness Extremities: No Clubbing, No Cyanosis, No Edema, Normal Pulses Results 04/22/17 00:37 04/22/17 00:37 Lab Results 04/21/17 04/22/17 04/22/17 18:57 00:37 00:37 WBC 9.2 Hgb 13.1 Hct 39.1 Plt Count 148 Sodium Potassium Chloride Carbon Dioxide BUN Creatinine Glucose Calcium Total Bilirubin AST ALT Alkaline Phosphatase Troponin I 0.00 0.01 04/22/17 00:37 WBC Hgb Hct Plt Count Sodium 140 Potassium 3.6 Chloride 105 Carbon Dioxide 27 BUN 14 Creatinine 0.99 Glucose 168 H Calcium 9.6 Total Bilirubin 0.7 AST 31 ALT 39 Alkaline Phosphatase 99 Troponin I Short CBC 04/22/17 04/21/17 Range/Units 00:37 12:37 WBC 9.2 10.5 (4.3-11.1) K/mcL Hgb 13.1 13.7 (12.9-16.9) g/dL Hct 39.1 40.3 (37.5-50.1) % Plt Count 148 191 (140-400) K/mcL Neutrophils # 6.0 6.7 (1.6-8.9) K/mcL BMP 04/22/17 04/21/17 Range/Units 00:37 12:37 Sodium 140 139 (136-145) mEq/L Potassium 3.6 3.7 (3.5-4.5) mEq/L Chloride 105 104 (98-109) mEq/L Carbon Dioxide 27 26 (19-29) mEq/L BUN 14 13 (8-26) mg/dL Creatinine 0.99 0.91 (0.72-1.25) mg/dL Glucose 168 H 167 H (70-99) mg/dL Calcium 9.6 10.0 (8.6-10.8) mg/dL Cardiac Enzymes 04/22/17 04/21/17 04/21/17 Range/Units 00:37 18:57 12:37 Troponin I 0.01 0.00 0.01 (0-0.03) ng/mL Liver Function 04/22/17 Range/Units 00:37 Total Bilirubin 0.7 (0.2-1.2) mg/dL AST 31 (5-34) Units/L ALT 39 (0-55) Units/L Alkaline Phosphatase 99 (38-126) Units/L Albumin 3.4 L (3.5-5.0) g/dL Impressions Chest X-Ray 04/21/17 12:15 IMPRESSION: No acute abnormality. D/ / Nuno Harrington MD / Nuno Harrington MD Interpreting Provider: Nuno Harrington MD Active Medications Acetaminophen (Tylenol) 650 mg PO Q6HR PRN PRN Reason: Mild Pain (1-3) Stop: 10/21/17 14:11 Albuterol Sulfate (Albuterol Inhaler) 1 puff IH [id number] [facility] Stop: 10/21/17 14:16 Last Admin: 04/22/17 07:36 Dose: 1 puff Amlodipine Besylate (Norvasc) 10 mg PO DAILY LUANN PRN Reason: Protocol Stop: 10/22/17 09:01 Last Admin: 04/22/17 09:09 Dose: 10 mg Aspirin (Aspirin) 81 mg PO DAILY [facility] Stop: 10/22/17 09:01 Last Admin: 04/22/17 09:09 Dose: 81 mg Atorvastatin Calcium (Lipitor) 40 mg PO HS [facility] Stop: 10/21/17 21:01 Last Admin: 04/21/17 20:54 Dose: 40 mg Budesonide/Formoterol Fumarate (Symbicort) 2 puff IH BIDR LUANN PRN Reason: Protocol Stop: 10/21/17 22:01 Last Admin: 04/22/17 07:36 Dose: 2 puff Citalopram Hydrobromide (Celexa) 20 mg PO DAILY [facility] Stop: 10/22/17 09:01 Last Admin: 04/22/17 09:09 Dose: 20 mg Dextrose/Water (Dextrose 50% (Syg)) 25 ml IVP AD PRN PRN Reason: Hypoglycemia Stop: 10/21/17 14:17 Enoxaparin Sodium (Lovenox) 40 mg SQ 0600 LUANN PRN Reason: Protocol Stop: 10/22/17 06:01 Last Admin: 04/22/17 05:22 Dose: 40 mg Furosemide (Lasix) 40 mg PO DAILY LUANN Stop: 10/22/17 09:01 Last Admin: 04/22/17 09:09 Dose: 40 mg Glucagon (Glucagen) 1 mg IM ONCE PRN PRN Reason: Hypoglycemia Stop: 10/21/17 14:17 Glucose (Gluctose) 15 gm PO ONCE PRN PRN Reason: Hypoglycemia Stop: 10/21/17 14:17 Glucose (Gluctose) 30 gm PO ONCE PRN PRN Reason: Hypoglycemia Stop: 10/21/17 14:17 Nitroglycerin (Nitroglycerin Premix 25 Mg/250 Ml) 25 mg in 250 mls @ 3 mls/hr IVC .Q24H [facility] PRN Reason: 5 MCG/MIN Stop: 10/21/17 12:16 Last Admin: 04/21/17 13:11 Dose: 5 mcg/min, 3 mls/hr Dextrose (Dextrose 5%) 1,000 mls @ 100 mls/hr IVC .Q10H PRN PRN Reason: HYPOGLYCEMIA Stop: 10/21/17 14:17 Insulin Human Lispro (Humalog) 0 units SQ TIDAC [facility] PRN Reason: Protocol Stop: 10/21/17 16:31 Last Admin: 04/22/17 09:03 Dose: Not Given Insulin Human Lispro (Humalog) 0 units SQ HS [facility] PRN Reason: Protocol Stop: 10/21/17 21:01 Last Admin: 04/21/17 22:56 Dose: Not Given Isosorbide Mononitrate (Imdur) 60 mg PO DAILY [facility] Stop: 10/22/17 09:01 Last Admin: 04/22/17 09:09 Dose: 60 mg Losartan Potassium (Cozaar) 50 mg PO DAILY [facility] PRN Reason: Protocol Stop: 10/22/17 09:01 Last Admin: 04/22/17 09:09 Dose: 50 mg Metoprolol Succinate (Toprol Xl) 50 mg PO BID [facility] Stop: 10/21/17 21:01 Last Admin: 04/22/17 09:09 Dose: 50 mg Naloxone HCl (Narcan) 0.4 mg IVP Q2MIN PRN PRN Reason: Opioid Reversal Stop: 10/21/17 14:11 Ticagrelor (Brilinta) 90 mg PO BID [facility] Stop: 10/21/17 15:00 Last Admin: 04/22/17 09:09 Dose: 90 mg - Imaging and Cardiology Echo: report reviewed Cardiac cath: report reviewed - EKG Interpretation EKG results cardiology: personally reviewed (SR, rate 59), other (SR with PACs, 12 hr AVG HR 59) Consult Discharge Plan - Plan Referrals: Damian Kim Jr, MD [Primary Care Provider] - 04/27/17 10:45 am
[2017-04-22] MEDS ORDERED: Heparin 1,000 UNITS/500 mL NS 0 ML ONE (16:20)
[2017-04-22] MEDS ORDERED: *HR* Heparin 10,000 UNIT/10 ML VIAL ONE ×2 (16:20→17:26)
[2017-04-22] MEDS ORDERED: 0.9 % Sodium Chloride 1,000 ML ONE ×3 (16:20→17:35)
[2017-04-22] MEDS ORDERED: Nitroglycerin 1,000 MCG/10 ML VIAL IV ONE ×2 (16:20→17:26)
[2017-04-22] MEDS ORDERED: Verapamil 5 MG/2 ML VIAL ONE ×2 (16:20→17:26)
[2017-04-22] MEDS ORDERED: *HR* Midazolam HCl 2 MG/2 ML VIAL ONE ×2 (16:27→17:25)
[2017-04-22] MEDS ORDERED: *HR* FentaNYL (PF) 100 MCG/2 ML VIAL ONE ×2 (16:28→17:26)
[2017-04-22] MEDS ORDERED: Heparin 1,000 UNITS/500 mL NS 500 ML ONE (17:26)
--- NOTE | 2017-04-22 17:36 | Pre-Sedation Evaluation ---
Pre-sedation evaluation - Pre-sedation checklist Date of procedure: 04/22/17 Procedure: Left Heart Catheterization Recent Vitals: Last Vital Signs Temp 98 F 04/22/17 11:49 Pulse 63 04/22/17 11:49 Resp 18 04/22/17 11:49 BP 115/70 04/22/17 11:49 Pulse Ox 96 04/22/17 11:49 H&P (including ROS) documented in medical record: Yes Previous reaction to sedatives/anesthetics: No Dietary Status: NPO after Midnight Dentition: No loose teeth or bridges ASA Classification *see protocol: CLASS II-Mild systemic disease Plan of Care: Pt appropriate candidate for procedure/moderate/conscious sedation , Risks/benefits of procedure/sedation discussed w/ patient/family
--- NOTE | 2017-04-22 18:16 | Invasive Diagnostic Lab Proc ---
Name: Nicolas Myers Date of Study: 04/22/2017 Date: 1955 Ht: 74.0in Medical Record#: [id number] Age: 61 Wt: 282.63lb Gender: Male BSA: 2.52 Order #: [id number] BMI: 36.27 Physicians Procedure Physician: David Gutierrez MD, [facility] Referring MD: Referring MD: Staff Name Position Time In Amarilys Low RT (R) Scrub 05:41 PM Bekah Cueva RN Link Trainer 05:41 PM Isaura Teresa RT (R) Monitor 05:41 PM Rolando Conroy RN Link Trainer 05:41 PM Indications Indication Unstable Angina Procedures Performed Procedure L HRT ARTERY/VENTRICLE ANGIO Pre-Procedure Checklist Informed consent is complete signed and on chart. H&P is on chart. ID band is on and ID verified with patient. Patient NPO for procedure The procedure was described for the patient and questions were answered. Blood Pressure: 131/92 ECG is on chart. Plan of Care Patient will tolerate the procedure without complications. Adequate level of comfort will be maintained. Hemodynamics will remain stable Patient will recover from procedure without complications. Respiratory function will be maintained. Cardiac rhythm will remain stable. Patient temperature will be maintained. Patient and/or family have verbalized understanding of the procedure. Patient Education Intravenous Access Time IV Size Location DC'd Fluid/Drip Rate Units RN 18g 1 1/4" Patent On Arrival Rt Arm 18g 1 1/4" Patent On Arrival Lt Antecubital 0.9NaCl 25 ml/hr Rolando Conroy RN Allergies lisinopril Vital Signs Time BP (mmHg) HR (bpm) O2 Sat. RR (bpm) LOC 131 / 92 59 97 % 16 5 = Fully awake and oriented or at pre-proc level 05:43 PM / % 4 = Oriented but drowsy 05:50 PM 139 / 75 58 95 % 16 05:55 PM 133 / 63 62 93 % 17 05:59 PM 136 / 74 67 95 % 21 05:40 PM 158 / 83 56 94 % 29 05:44 PM 122 / 67 67 94 % 16 Procedural Medications Time Medication Dose Units Method Given By 05:43 PM Oxygen 2 L/min nasal cannula Rolando Conroy RN 05:44 PM Versed 2 mg Intravenous Rolando Conroy RN 05:44 PM Fentanyl 50 mcg Intravenous Rolando Conroy RN 05:48 PM Lidocaine 2% 0.5 ml Subcutaneous David Gutierrez MD, FACC 05:50 PM Heparin 4000 units Nitroglycerin 200 mcg Verapamil 2.5 mg Intraarterial David Gutierrez MD, FACC 05:52 PM Oxygen 3 L/min nasal cannula Rolando Conroy RN ASA Classification: CLASS II- Mild systemic disease (i.e. well-controlled diabetes, hypertension, asthma, cigarette smoking) Juan Luis Score Preprocedure Postprocedure Activity 2- Moves 4 extremities sustained head lift Activity 2- Moves 4 extremities sustained head lift Circulation 2- SBP +/= 20 points of pre-anesthetic level Circulation 2- SBP +/= 20 points of pre-anesthetic level Consciousness 2- Awake and alert oriented x 3 Consciousness 2- Awake and alert oriented x 3 O2 Saturation 2- Able to maintain O2 satruation of 92% on room air O2 Saturation 2- Able to maintain O2 satruation of 92% on room air Respiratory 2- Able to deep breathe and cough well Respiratory 2- Able to deep breathe and cough well Total Score 10 Total Score 10 Contrast Agent: Isovue Diagnostic Contrast: 66 ml Total Contrast: 66 ml Fluoro Dose: 275 mGy Procedure Log Time Note Enter By 05:39 PM CathStat 05:39 PM Vitals capture started with the following parameters, Patient=Adult, Interval=5 min, Initial Lfptamug=387 mmHg, Deflation Rate=5 mmHg, Cuff placed on Right Arm 05:39 PM Recorded ECG: HR=56 Condition=Condition 1 05:40 PM HR=56 bpm, APYX=953/83 mmhg, SpO2=94.0 %, Resp=29 B/min 05:41 PM Pt arrived to oven laborer 2 at 17:41 tsites 05:41 PM Amarilys Low RT (R) Position: Scrub Time in: 17:41 tsites 05:41 PM Bekah Cueva RN Position: Link Trainer Time in: 17:41 tsites 05:41 PM Isaura Teresa RT (R) Position: Monitor Time in: 17:41 tsites 05:41 PM Rolnado Conroy RN Position: Link Trainer Time in: 17:41 tsites 05:41 PM Physician arrived 17:41 tsites 05:41 PM Meet and greet completed tsites 05:41 PM Sign in performed according to hospital policy. tsites 05:41 PM Procedure start 17:41 tsites 05:42 PM Case Delayed No tsites 05:43 PM Hair removed from procedure site in holding area using clippers. Right wrist and right groin prepped with Chloraprep by Bekah Cueva RN safety strap applied then patient was draped. Skin intact. tsites 05:43 PM Patient charges- Angio tray pack, Navilyst 3mm J, Pulse Oximetry and ACIST tubing and transducer tsites 05:43 PM Time: 17:43 Oxygen on at 2 L/min per nasal cannula by Rolando Conroy RN tsites 05:43 PM Time: 17:43 Patient comfortable and pain free: Yes tsites 05:43 PM Time: 17:43LOC: 4 = Oriented but drowsy tsites 05:44 PM Clinical Presentation: Unstable angina tsites 05:44 PM Time: 17:44 Versed 2 mg Intravenous Given by Rolando Conroy RN tsites 05:44 PM Time: 17:44 Fentanyl 50 mcg Intravenous Given by Rolando Conroy RN tsites 05:44 PM HR=67 bpm, GQRT=135/67 mmhg, SpO2=94.0 %, Resp=16 B/min 05:48 PM Time out performed according to hospital policy tsites 05:48 PM Time: 17:48 0.5 ml Lidocaine 2% to right radial Subcutaneous Given by David Gutierrez MD, [facility] tsites 05:50 PM Access obtained by percutaneous puncture. 6Fr 10cm Terumo Glidesheath sheath placed in right Radial artery. [id number] tsites 05:50 PM HR=58 bpm, BYSZ=394/75 mmhg, SpO2=95.0 %, Resp=16 B/min 05:50 PM Time: 17:50 Patient given 4,000 units Heparin, 200 mcg Nitroglycerin, and 2.5 mg Verapamil Intraarterial by David Gutierrez MD, [facility] tsites 05:51 PM 5Fr TIG catheter inserted over the wire [facility] tsites 05:51 PM 0.035 260cm Navilyst 3mmJ wire [id number] tsites 05:52 PM RCA angiography performed in multiple views. tsites 05:52 PM Recorded Pressure: Ao, HR=65, Condition=Condition 1 (Aorta) Ao 85/42/57 05:52 PM Time: 17:52 Oxygen on at 3 L/min per nasal cannula by Rolando Conroy RN tsites 05:53 PM LCA angiography performed in multiple views. tsites 05:53 PM Lesion found in Mid RCA. Pre Stenosis: 30 Pre SHIRLENE Flow: tsites 05:54 PM Lesion found in Distal RCA. Pre Stenosis: 50 Pre SHIRLENE Flow: tsites 05:54 PM Lesion found in Mid Circumflex. Pre Stenosis: 50 Pre SHIRLENE Flow: tsites 05:54 PM Recorded Pressure: Ao, HR=58, Condition=Condition 1 (Aorta) Ao 106/64/82 05:54 PM Lesion found in 1st Marginal. Pre Stenosis: 50 Pre SHIRLENE Flow: tsites 05:55 PM HR=62 bpm, OPPZ=199/63 mmhg, SpO2=93.0 %, Resp=17 B/min 05:55 PM Lesion found in 1st RPL. Pre Stenosis: 50 Pre SHIRLENE Flow: tsites 05:55 PM Lesion found in Mid LAD. Pre Stenosis: 30 Pre SHIRLENE Flow: tsites 05:55 PM Mid/Distal Left Anterior Descending Coronary Artery and diagonal branches with 30% stenosis. If graft is supplying this area, 0 % stenosis tsites 05:55 PM Circumflex, Obtuse Marginal, Left Posterior Descending, and Left Posterolateral Coronary Arteries with 50 % stenosis. If graft is supplying this area, 0 % stenosis tsites 05:55 PM Right Coronary, Right Posterior Descending Arteries with Right Posterolateral and Acute Marginal branches with 50 % stenosis. If graft is supplying this area, 0 % stenosis tsites 05:55 PM wire reinserted catheter removed tsites 05:58 PM Pressure channel 1 zero failed. 05:58 PM Pressure channel 1 zeroed. 05:58 PM Recorded Pressure: LV, HR=73, Condition=Condition 1 (Left Ventricle) LV 134/10/20 05:58 PM 5Fr Pigtail catheter inserted over the wire [facility] tsites 05:58 PM Catheter selectively placed in left ventricle tsites 05:58 PM Recorded Pressure: LV, Ao, HR=64, Condition=Condition 1 (Left Ventricle) LV 131/15/19, (Aorta) Ao 142/70/96 05:58 PM Bolus angiogram of left Ventricle complete: 11 ml/sec for a total of 30 mls tsites 05:58 PM Catheter removed tsites 05:58 PM Coronary Dominance: right tsites 05:59 PM Procedure completed at 17:59 tsites 05:59 PM Sign out completed: Radiation Dose 275 mGy Fluoro Time: 1.7 Isovue 370 - 500ml contrast 66 ml given by David Gutierrez MD, [facility]. Complications: NoneCardiac Rehab Consult needed: NoConfirmed administered medications: Yes tsites 05:59 PM Isovue 370 - 500ml,1 Bottle(s) used. tsites 05:59 PM HR=67 bpm, IUTX=483/74 mmhg, SpO2=95 %, Resp=21 B/min 06:00 PM Arterial sheath pulled, Vasc Band closure device used and was Successful S/N. tsites 06:00 PM 10 ml air in Vasc Band. tsites 06:00 PM Post ECG NSR tsites 06:00 PM Post Blood Pressure 136/74 tsites 06:00 PM 18:00 Post Pulses Rt Radial 1+ tsites 06:00 PM Information taught Cardiac Cath and Vasc Band tsites 06:00 PM Education needs Procedure, Plan of Care, and Responsibilities of Patient in Care tsites 06:00 PM Learning barriers :None tsites 06:00 PM Education Methods Verbal tsites 06:01 PM Education evaluation Able to repeat information tsites 06:01 PM Site status No bleeding/hematoma - Rt Wrist as reported by Amarilys Low RT (R) at 18:01 tsites 06:01 PM Delay to floor No tsites 06:01 PM Patient out of room: 18:01 tsites 06:01 PM Family placed in holding area. tsites 06:07 PM Report given to Ash E[facility]AR[employer] Pt taken to E Room #25. 18:07 tsites Complications Complication None Hemodynamics Pressures Site Systolic/A Wave Diastolic/V Wave Mean AO 85 42 57 AO 106 64 82 LV 134 10 20 LV 131 15 19 AO 142 70 96 Post Procedure Information Blood Pressure: 136/74 mmHg Rhythm: NSR Post procedural instructions were given Closure Device Time Device Success/Fail 04/22/2017 6:02:00 PM Mechanical Compression Successful Site Checks Time Location Status Staff Sheath In? Note 06:01 PM Rt Wrist No bleeding/hematoma Amarilys Low RT (R) Pulses Time Site Pre-Procedure Post-Procedure Note Bilateral DP & PT 2+ Bilateral radial 2+ 6:00:00 PM Rt Radial 1+ Updated by Isaura Teresa RT (R) on 04/22/2017 6:08:22 PM Isaura Sites, RT electronically signed on 04/22/2017 6:09:08 PM with status of Final
--- NOTE | 2017-04-22 21:05 | Invasive Diagnostic Lab ---
Name: Nicolas Myers Date of Study: 04/22/2017 Date: 1955 Ht: 188.0 cm /74.0 in Medical Record#: [id number] Age: 61 Wt: 128.2 kg / 282.63 lb Account/Order#: [id number] Gender: Male BSA: 2.52 Order #: [id number] Fluoro Dose: 275 mGy BMI: 36.27 Procedure Physician: David Gutierrez MD, FACC Referring MD: Referring MD: Procedures Performed: LEFT HEART CATH Indications: Unstable Angina Impressions: Moderate coronary artery disease. The left ventricle is normal and has normal contractility EF 60% Recommendations: Optimal medical therapy of patient's disease. Aggressive risk factor modification. History/Risk Factors: Diabetes Hypertension Dyslipidemia CHF Chronic Lung Disease Prior ND Procedure Access obtained in the right Radial artery by percutaneous puncture Complications: None Contrast: Isovue 66ml Closure Device: Mechanical Compression Hemodynamics: Pressures Site Systolic/ A Wave Diastolic/ V Wave End Diastolic/ Mean HR AO 85 42 57 65 AO 106 64 82 58 LV 134 10 20 73 LV 131 15 19 70 AO 142 70 96 62 LV Ventriculography Ejection Method: LV Gram Ejection Fraction: 60% Wall Motion: CRUMP Anterobasal Normal Anterolateral Normal Apical: Normal Inferoapical Normal Inferobasal Normal Coronary Dominance: right Lesion Findings/Interventions * Left Main Coronary Artery No left main - separate LAD/LCx ostia * Left Anterior Descending The Mid LAD is small and diffusely diseased. The Distal LAD is small and diffusely diseased. There is a 30% stenosis in the Mid LAD. * Circumflex There is a 50% stenosis in the Mid Circumflex. There is a 50% stenosis in the 1st Marginal. * Right Coronary Artery The RPLV is small in size.. There is a 30% stenosis in the Mid RCA. There is a 50% stenosis in the Distal RCA. There is a 50% stenosis in the 1st RPLV. Updated by Isaura Brii RT (R) on 04/22/2017 6:08:40 PM David Gutiererz MD, FACC electronically signed on 04/22/2017 9:01:43 PM with status of Final
[2017-04-23] MEDS: *HR* Enoxaparin 40 MG/0.4 ML SYRINGE SQ SCH (06:03)
[2017-04-23] MEDS: Budesonide/Formoterol 160/4.5 MDI IH SCH (08:17)
[2017-04-23] MEDS ORDERED: Isosorbide MONOnitrate (24 HR) 60 MG TAB.ER.24H PO SCH (09:00)
[2017-04-23 09:06] LABS: BUN/Creatinine Ratio 12 (6-26); Blood Urea Nitrogen 11 mg/dL (8-26); Calcium 9.7 mg/dL (8.6-10.8); Carbon Dioxide 27 mEq/L (19-29); Chloride 103 mEq/L (98-109); Glucose 176 mg/dL (70-99); Osmolality,Calculated 292 (280-300); Potassium 3.8 mEq/L (3.5-4.5); Sodium 139 mEq/L (136-145); eGFR For African Americans > 60 (> 60); eGFR For Non-African Americans > 60 (> 60)
[2017-04-23] MEDS: *HR* Ticagrelor 90 MG TABLET PO SCH (09:10)
[2017-04-23] MEDS: Metoprolol XL (24 HR) Succ 50 MG TAB.ER.24H PO SCH (09:10)
[2017-04-23] MEDS: Furosemide 40 MG TABLET PO SCH (09:11)
[2017-04-23] MEDS: Aspirin 81 MG TAB.CHEW PO SCH (09:11)
[2017-04-23] MEDS: amLODIPine 5 MG TABLET PO SCH (09:11)
[2017-04-23] MEDS: Insulin LISPRO 300 UNITS/3 ML VIAL SQ SCH ×2 (09:11→12:19)
--- NOTE | 2017-04-23 09:19 | Internal Med Progress Note ---
Date of Encounter: 04/23/17 Time of Encounter: 09:16 - Assessment and plan (1) Atrial fibrillation Current Visit: Yes Status: Chronic Qualifiers: Atrial fibrillation type: paroxysmal Qualified Code(s): I48.0 - Paroxysmal atrial fibrillation (2) HTN (hypertension) Current Visit: Yes Status: Chronic Assessment and plan: Resume home medicines and monitor daily Qualifiers: Hypertension type: essential hypertension Qualified Code(s): I10 - Essential (primary) hypertension (3) Hyperlipemia Current Visit: Yes Status: Chronic Assessment and plan: Resume home medicines Qualifiers: Hyperlipidemia type: mixed hyperlipidemia Qualified Code(s): E78.2 - Mixed hyperlipidemia (4) Diabetes Current Visit: Yes Status: Chronic Assessment and plan: Accu-Chek 4 times a day with sliding scale coverage daily Qualifiers: Diabetes mellitus type: type 2 Diabetes mellitus complication status: with unspecified complications Diabetes mellitus longterm insulin use: with longterm use Qualified Code(s): E11.8 - Type 2 diabetes mellitus with unspecified complications; Z79.4 - assisted (current) use of insulin (5) Chest pain Current Visit: Yes Status: Acute Assessment and plan: recurrent atypical chest pain. Relief with nitroglycerin planned cardiac catheter. Qualifiers: Chest pain type: unspecified Qualified Code(s): R07.9 - Chest pain, unspecified - Subjective Interval history: Patient admitted for recurrent chest pain. He had angioplasty and stent placed this year. Cardiology decided to do cardiac catheter. Cardiac catheterization show any new blockage and a stent is patent and therefore he will be discharged home on home medication. He seems a stable this morning.. - Constitutional Vitals: Temp Pulse Resp BP Pulse Ox 97.6 F 62 16 133/45 98 04/23/17 07:48 04/23/17 07:48 04/23/17 08:18 04/23/17 07:48 04/23/17 08:18 - Head Head exam: Present: atraumatic, normocephalic - Eye Eye exam: Present: PERRL, conjuntiva pink, sclera anicteric Pupils: Present: PERRL - Neck Neck exam general surgery: Present: supple, trachea midline. Absent: lymphadenopathy - Respiratory Respiratory exam: Present: CTAB. Absent: accessory muscle use, rales, rhonchi, wheezes - Cardiovascular Cardiovascular exam: Present: RRR, +S1, +S2. Absent: diastolic murmur, gallop, rubs, systolic murmur - GI/Abdominal GI/Abdominal exam: Present: normal bowel sounds, soft, no peritoneal signs. Absent: distended, tenderness - Extremities Exam Extremities exam: Present: warm, radial pulses palpable and symetrical. Absent : calf tenderness, cyanotic, pedal edema - Neurological Exam Neurological exam: Present: CN II-XII intact, oriented X3, no focal deficits. Absent: pronater drift, facial droop, speech deficit - Skin Skin exam: Present: dry, intact Internal Medicine: Result - Labs CBC & Chem 7: 04/22/17 00:37 04/23/17 08:36 Labs: BMP 04/23/17 08:36 Sodium 139 Potassium 3.8 Chloride 103 Carbon Dioxide 27 BUN 11 Creatinine 0.89 Glucose 176 H Calcium 9.7 - ABG Interpretation ABG results: PT/INR, D-dimer PT 12.8 Seconds (9.4-12.1) H 04/21/17 12:37 Consult Discharge Plan - Plan Referrals: Damian Kim Jr, MD [Primary Care Provider] - 04/27/17 10:45 am
--- NOTE | 2017-04-23 10:47 | Cardiology Progress Note ---
Date of Encounter: 04/23/17 Time of Encounter: 10:44 Assessment and Plan (1) CAD (coronary artery disease), [place] coronary artery Current Visit: Yes Status: Chronic S/P LHC yesterday due to symptoms concerning for unstable angina despite attempted medical management. LHC showed moderate disease, no intervention warranted. Pt reports he is chest pain free this morning, feeling better. S/P NSTEMI 12/16/16 with PANTERA to mid LCx and pRCA. Recommend continuing DAPT (ASA and Brilinta) uninterrupted x 1 year. Continue Statin, BB, ARB, Imdur. Add Ranexa. EF 35% 11/2016. Echo yesterday shows EF appears to have improved to 50%. Wall motion abnormalities noted. Right radial access site healing well. No bleeding, hematoma or ecchymosis noted. Cardiology signing off. Reconsult PRN. Follow-up with cardiology in 3-4 weeks as outpt. Qualifiers: [place] vs. transplanted heart: [place] heart Associated angina: with unstable angina Qualified Code(s): I25.110 - Atherosclerotic heart disease of [place] coronary artery with unstable angina pectoris (2) Atrial fibrillation and flutter Current Visit: No Status: Chronic Currently SR. Known hx of PAF/FL. Continue BB. CHADSVASC score 3 (CAD, HTN, DM). Not on chronic anticoagulation due to rectal bleeding on DAPT and needing DAPT until 11/2017. Continue ASA and Brilinta. Discussion w patient/family: The assessment and plan as outlined above was discussed with the patient and/or family members who expressed understanding and agreement. All questions were answered. Thank you for involving us in the care of your patient. Please call with any questions. I will discuss all the above with Dr. Marcus Henson and make changes as necessary. Subjective Principal diagnosis: CAD Interval history: S/P LHC yesterday, revealed moderate CAD, no intervention warranted. Pt denies chest pain this AM, reports feeling much better. Echo shows EF has improved from 35% 11/2016 to 50%. Objective Vital Signs, Last 4 Hours Temp Pulse Resp BP Pulse Ox 04/23/17 08:18 16 98 04/23/17 07:48 97.6 F 62 18 133/45 98 Vital Signs Temp Pulse Resp BP Pulse Ox 04/23/17 08:18 16 98 04/23/17 07:48 97.6 F 62 18 133/45 98 04/23/17 05:39 97.7 F 57 18 127/52 97 04/22/17 23:04 98.4 F 64 16 141/57 96 04/22/17 21:08 95 04/22/17 19:54 15 95 04/22/17 11:49 98 F 63 18 115/70 96 04/22/17 11:14 18 94 Intake and Output 04/22/17 04/23/17 04/23/17 23:59 07:59 15:59 Intake Total 240 / 240 500 / 500 120 / 120 Output Total 275 / 275 Balance -35 / -35 500 / 500 120 / 120 Intake: IV Fluids 0 / 0 Nitroglycerin Premix 25 0 / 0 MG/250 ML 25 mg In 250 ml @ 5 MCG/MIN 3 mls/hr IVC .Q24H [facility] Rx#:[id number] Oral 240 / 240 500 / 500 120 / 120 Output: Urine 275 / 275 Other: Meal Dinner Breakfast Percent of Meal Consumed 100% 100% # Voids 0 Weight 126.915 kg 126.7 kg Blood Glucose* 197 134 Patient Weight 04/23/17 23:59 Weight 126.7 kg General: Conversant, No Apparent Distress HEENT: Atraumatic, Normocephaly, Mucus Membranes Moist Neck: No JVD, Normal carotid pulses Cardiac: Reg Rate and Rhythm, Normal S1 and S2, No Murmur Lungs: Normal Breath Sounds, No Wheeze, Rales, Rhonchi Neuro: Alert and responsive, No focal deficits noted Abdomen: Soft, Non-Tender Skin: Other (right radial access site healing well. No bleeding, hematoma or ecchymosis noted.) Musculoskeletal: No Chest Wall Tenderness Extremities: No Clubbing, No Cyanosis, No Edema, Normal Pulses Results 04/22/17 00:37 04/23/17 08:36 Lab Results 04/23/17 08:36 Sodium 139 Potassium 3.8 Chloride 103 Carbon Dioxide 27 BUN 11 Creatinine 0.89 Glucose 176 H Calcium 9.7 BMP 04/23/17 Range/Units 08:36 Sodium 139 (136-145) mEq/L Potassium 3.8 (3.5-4.5) mEq/L Chloride 103 (98-109) mEq/L Carbon Dioxide 27 (19-29) mEq/L BUN 11 (8-26) mg/dL Creatinine 0.89 (0.72-1.25) mg/dL Glucose 176 H (70-99) mg/dL Calcium 9.7 (8.6-10.8) mg/dL Impressions Echocardiogram 04/21/17 14:16 Impressions: Technically challenging study. Not all LV wall segments were well visualized. Visually, LV systolic function appears mildly reduced, EF 50% with possible wall motion abnormalities. Recommend repeat limited study with definity if appropriate. RV is not well visualized or evaluated on this study. No significant valvular dysfunction. Lack of TR gradient to estimate RVSP. Left Ventricular Wall Motion: Rest Echo Findings The mid inferior, basal inferior, mid inferior septal and basal inferior septal ortiz were hypokinetic. The apical anterior, mid anterior and basal anterior ortiz were not visualized. All other wall segments showed normal motion. Findings: Study Quality * Technically adequate exam. ECG Findings * Normal sinus rhythm. Left Ventricle * Mild-moderate concentric left ventricular hypertrophy. * Indeterminate diastolic function. * LVEF 50%. Aorta * Normally sized aortic root. Aortic Valve * No aortic regurgitation. * Aortic valve not well visualized. * No aortic stenosis. Mitral Valve * Normal mitral valve structure. * No mitral stenosis. * Trace mitral regurgitation. Tricuspid Valve * Tricuspid valve not well visualized. * No tricuspid regurgitation. Pulmonic Valve * Pulmonic valve is not well visualized. * No pulmonic stenosis. * No pulmonic regurgitation. Pulmonary Artery * Pulmonary artery not well visualized. Left Atrium * Normal left atrial size. Right Ventricle * RV is not well evaluated. Right Atrium * Right atrium is not well visualized. Interatrial Septum * Interatrial septum not well evaluated. Pericardium * There is no pericardial effusion present. IVC * The IVC is not well evaluated. Active Medications Acetaminophen (Tylenol) 650 mg PO Q6HR PRN PRN Reason: Mild Pain (1-3) Stop: 10/21/17 14:11 Albuterol Sulfate (Albuterol Inhaler) 1 puff IH [id number] [facility] Stop: 10/21/17 14:16 Last Admin: 04/23/17 08:17 Dose: 1 puff Amlodipine Besylate (Norvasc) 10 mg PO DAILY [facility] PRN Reason: Protocol Stop: 10/22/17 09:01 Last Admin: 04/23/17 09:11 Dose: 10 mg Aspirin (Aspirin) 81 mg PO DAILY [facility] Stop: 10/22/17 09:01 Last Admin: 04/23/17 09:11 Dose: 81 mg Atorvastatin Calcium (Lipitor) 40 mg PO HS [facility] Stop: 10/21/17 21:01 Last Admin: 04/22/17 20:59 Dose: 40 mg Budesonide/Formoterol Fumarate (Symbicort) 2 puff IH BIDR [facility] PRN Reason: Protocol Stop: 10/21/17 22:01 Last Admin: 04/23/17 08:17 Dose: 2 puff Citalopram Hydrobromide (Celexa) 20 mg PO DAILY [facility] Stop: 10/22/17 09:01 Last Admin: 04/23/17 09:11 Dose: 20 mg Dextrose/Water (Dextrose 50% (Syg)) 25 ml IVP AD PRN PRN Reason: Hypoglycemia Stop: 10/21/17 14:17 Enoxaparin Sodium (Lovenox) 40 mg SQ 0600 [facility] PRN Reason: Protocol Stop: 10/22/17 06:01 Last Admin: 04/23/17 06:03 Dose: 40 mg Furosemide (Lasix) 40 mg PO DAILY [facility] Stop: 10/22/17 09:01 Last Admin: 04/23/17 09:11 Dose: 40 mg Glucagon (Glucagen) 1 mg IM ONCE PRN PRN Reason: Hypoglycemia Stop: 10/21/17 14:17 Glucose (Gluctose) 15 gm PO ONCE PRN PRN Reason: Hypoglycemia Stop: 10/21/17 14:17 Glucose (Gluctose) 30 gm PO ONCE PRN PRN Reason: Hypoglycemia Stop: 10/21/17 14:17 Nitroglycerin (Nitroglycerin Premix 25 Mg/250 Ml) 25 mg in 250 mls @ 3 mls/hr IVC .Q24H [facility] PRN Reason: 5 MCG/MIN Stop: 10/21/17 12:16 Last Infusion: 04/22/17 21:01 Dose: 0 mcg/min, 0 mls/hr Dextrose (Dextrose 5%) 1,000 mls @ 100 mls/hr IVC .Q10H PRN PRN Reason: HYPOGLYCEMIA Stop: 10/21/17 14:17 Insulin Human Lispro (Humalog) 0 units SQ TIDAC [facility] PRN Reason: Protocol Stop: 10/21/17 16:31 Last Admin: 04/23/17 09:11 Dose: Not Given Insulin Human Lispro (Humalog) 0 units SQ HS [facility] PRN Reason: Protocol Stop: 10/21/17 21:01 Last Admin: 04/22/17 22:00 Dose: Not Given Isosorbide Mononitrate (Imdur) 120 mg PO DAILY [facility] Stop: 10/23/17 09:01 Last Admin: 04/23/17 09:10 Dose: 120 mg Losartan Potassium (Cozaar) 50 mg PO DAILY [facility] PRN Reason: Protocol Stop: 10/22/17 09:01 Last Admin: 04/23/17 09:10 Dose: 50 mg Metoprolol Succinate (Toprol Xl) 50 mg PO BID [facility] Stop: 10/21/17 21:01 Last Admin: 04/23/17 09:10 Dose: 50 mg Naloxone HCl (Narcan) 0.4 mg IVP Q2MIN PRN PRN Reason: Opioid Reversal Stop: 10/21/17 14:11 Ticagrelor (Brilinta) 90 mg PO BID [facility] Stop: 10/21/17 15:00 Last Admin: 04/23/17 09:10 Dose: 90 mg - Imaging and Cardiology Echo: report reviewed Cardiac cath: report reviewed - EKG Interpretation EKG results cardiology: other (12 hr tele AVG HR 57, SR, no significant pauses noted) Consult Discharge Plan - Plan Referrals: Damian Kim Jr, MD [Primary Care Provider] - 04/27/17 10:45 am
[2017-04-23] MEDS ORDERED: Ranolazine 500 MG TAB.ER.12H PO SCH (11:00)
[2017-04-23 12:02] VITALS: BP 125/62
== END 2017-04-23 16:15 | disposition home or self-care (01) ==
LOC: EMEROO 11:59 → 2NENU 15:32 → INTOOBSV 15:32 → 2NENU 16:05
PROVIDERS: ADMIT Internal Medicine; ATTEND Internal Medicine

== ENCOUNTER 2018-09-25 14:54 | Observation (INO) ==
[2018-09-25] MEDS ORDERED: Nitroglycerin 0.4 MG TAB.SUBL SL ONE (15:16)
[2018-09-25] MEDS ORDERED: Aspirin 81 MG TAB.CHEW PO ONE (15:16)
--- NOTE | 2018-09-25 15:20 | Emergency Department Note ---
Disposition Clinical Impression: Chest pain Disposition: Admitted As Inpatient Condition: Good Time of Disposition: 16:49 General Adult HPI - General Chief complaint: ED Arrhythmia/Palpitations Stated complaint: CP Taken 2 nitro Time Seen by Provider: 09/25/18 15:02 Source: patient Mode of arrival: ambulatory Limitations: no limitations Nursing Notes Reviewed: Yes Vital Signs Reviewed: Yes - History of Present Illness HPI Narrative: Patient is a 62-year-old male presenting with chest pain. Patient has no history significant for CAD status post stenting 3, hypertension, hyperlipi demia and diabetes. Patient states that this afternoon around 2 PM he began to have chest pressure located in the middle of his chest radiating into his back. He states he also has associated shortness of breath. He states his symptoms are exertional. They do not resolve with rest. Current pain is an 8 out of 10. Patient also has some generalized lightheaded and dizziness secondary to pain. He has also had a recent upper respiratory infection with cough. Denies any recent fever or chills. He did take total of 2 nitroglycerin without complete resolution of pain. He states that this feels very similar to his last heart attack which was partially 2 years ago. He denies any lower extremity swelling, hemoptysis previous long car rides. - Related Data Home Medications Medication Instructions Recorded Confirmed Aspirin 81 mg PO DAILY 12/16/16 09/25/18 Atorvastatin [Lipitor] 40 mg PO HS 12/16/16 09/25/18 Fish Oil/Dha/Epa [Fish Oil 1,200 1 each PO DAILY 12/16/16 09/25/18 mg Fish Oil] Metformin HCl [Glucophage] 1,000 mg PO BID 12/16/16 09/25/18 glipiZIDE [Glipizide] 10 mg PO DAILY 12/16/16 09/25/18 Albuterol Sulfate [Ventolin Hfa] 90 gm IH Q4H 02/12/17 09/25/18 Budesonide/Formoterol 160/4.5 2 puff IH BIDR 02/12/17 09/25/18 [Symbicort 160/4.5] Citalopram [CeleXA] 20 mg PO DAILY 02/12/17 09/25/18 Isosorbide MONOnitrate (24 HR) 60 mg PO DAILY 05/25/17 01/05/19 [Imdur] Losartan [Cozaar] 50 mg PO DAILY 02/12/17 09/25/18 Metoprolol XL (24 HR) Succ [Toprol 50 mg PO BID 02/12/17 09/25/18 Xl] Multivit-Min/FA/Lycopen/Lutein 1 each PO DAILY 02/12/17 09/25/18 [Centrum Silver Men Tablet] Nitroglycerin [Nitrostat] 0.4 mg SL PRN PRN 02/12/17 09/25/18 Previous Rx's Medication Instructions Recorded Furosemide [Lasix] 40 mg PO DAILY #30 tablet 12/20/16 Potassium Chloride 20 meq PO DAILY #60 tab.er.prt 12/20/16 Ticagrelor [Brilinta] 90 mg PO BID #30 tablet 12/20/16 amLODIPine [Norvasc] 10 mg PO DAILY #60 tablet 12/20/16 Acetaminophen [Tylenol] 650 mg PO Q6HR PRN tab 04/22/17 Ranolazine [Ranexa] 500 mg PO BID #60 tab 04/23/17 Allergies Allergy/AdvReac Type Severity Reaction Status Date / Time lisinopril AdvReac Cough Verified 12/16/16 11:17 All systems ED: reviewed and negative except as stated. Review of Systems: As Per HPI Constitutional: Denies: fever, chills, weakness, weight change Cardiovascular: Reports: chest pain, dyspnea on exertion. Denies: palpitations, edema, syncope, paroxysmal nocturnal dyspnea Respiratory: Reports: cough, dyspnea. Denies: wheezes Gastrointestinal: Reports: nausea. Denies: abdominal pain, vomiting, diarrhea, constipation, hematemesis, melena, hematochezia Genitourinary: Denies: urgency, dysuria, frequency, hematuria Musculoskeletal: Reports: back pain Integumentary: Denies: rash, abrasion, lesions Neurological: Denies: headache, weakness, numbness, paresthesias, confusion, abnormal gait, vertigo Psychiatric: Denies: anxiety Endocrine: Denies: fatigue Past Medical History - Past Medical History Medical history: Reports: arthritis, asthma, atrial fibrillation, CHF, COPD, coronary artery disease, diabetes, hyperlipidemia, hypertension, migraine, myocardial infarction Surgical history: Reports: angioplasty/stent, cataract, cholecystectomy Psychiatric history: Reports: no psych history - Social History Smoking Status: Former smoker Smokeless Tobacco Status: No Alcohol use: Reports: none Drug use: Reports: none Physical Exam - General Limitations: no limitations General appearance: alert, in no apparent distress - Head Head exam: atraumatic, normocephalic, normal inspection - Eye Eye exam: Present: normal appearance, PERRL, EOMI - ENT ENT exam: normal exam, normal oropharynx, mucous membranes moist - Neck Neck exam: Present: normal inspection, full ROM, trachea midline - Chest Chest inspection: Present: normal inspection, symmetric chest wall rise - Respiratory Respiratory exam: Present: normal lung sounds bilaterally - Cardiovascular Cardiovascular exam: Present: regular rate, normal rhythm, normal heart sounds - Abdominal Exam Abdominal exam: Present: soft, Non-Tender. Absent: tenderness, distention, guarding, rebound, rigidity - Extremities Exam Extremities exam: Present: normal inspection, full ROM, pedal edema (1+ pedal edema). Absent: tenderness - Expanded Lower Extremity Exam Neurovascular/Tendon exam: Absent: motor deficit, sensory deficit, tendon deficit - Back Exam Back exam: Present: normal inspection, full ROM. Absent: tenderness - Neurological Exam Neurological exam: Present: alert, oriented X3 - Psychiatric Psychiatric exam: Present: normal affect, normal mood - Skin Skin exam: Present: warm, dry, intact, normal color Course Vital Signs Temperature 97.7 F 09/25/18 15:11 Pulse Rate 100 09/25/18 15:11 Respiratory Rate 09/25/18 15:11 Blood Pressure 149/96 09/25/18 15:11 O2 Sat by Pulse Oximetry 98 09/25/18 15:11 Temperature 97.7 F 09/25/18 15:11 Pulse Rate 100 09/25/18 15:11 Respiratory Rate 26 09/25/18 15:11 Blood Pressure 149/96 09/25/18 15:11 O2 Sat by Pulse Oximetry 98 09/25/18 15:38 Oxygen Delivery Oxygen Delivery Room Air Medical Decision Making - [facility] Narrative Medical decision making narrative: Patient is a 62-year-old male presenting with chest pain and shortness of b reath. This is exertional does not resolve with rest. Patient has taken a total of 3 nitroglycerin without complete resolution of pain. Patient given aspirin. Patient has history of CAD says post stenting 3. On reexamination, patient continues to have 4 out of 10 pain. On arrival, patient is normotensive and afebrile. Examination is relatively unremarkable. EKG was performed which shows patient in atrial fibrillation with a ventricular rate of 109, irregular rhythm, no ST segment elevation or depression is noted. EKG does not show any acute ischemic changes. Troponin is within normal limits. CBC, BMP are all within normal limits. Chest x-ray is negative for acute cardio or pulmonary etiology. At this point in time, will admit patient for ACS rule out. Patient is in agreement and understanding with this physician. - Medical Records Medical records reviewed: Yes I reviewed the patient's medical records. - Lab Data Lab results reviewed: Yes I reviewed the patient's lab results. Result diagrams: 09/25/18 15:26 09/25/18 15:26 Lab Results 09/25/18 09/25/18 09/25/18 Range/Units 15:16 15:16 15:26 WBC 10.3 (4.3-11.1) K/mcL RBC 4.99 (4.19-5.50) M/mcL Hgb 14.6 (12.9-16.9) g/dL Hct 44.0 (37.5-50.1) % MCV 88.2 (83.0-100.0) fL MCH 29.3 (28.0-33.3) pg MCHC 33.2 (31.6-35.5) g/dL RDW 13.8 (11.5-14.5) % Plt Count 195 (140-400) K/mcL MPV 10.8 (9.4-12.4) fL Immature Gran % 0.4 (0-4) % Seg Neutrophils % 66.6 % Lymphocytes % 23.3 % Monocytes % 7.0 % Eosinophils % 1.8 % Basophils % 0.9 % Neutrophils # 6.9 (1.6-8.9) K/mcL Lymphocytes # 2.4 (0.6-4.6) K/mcL Monocytes # 0.7 (0.0-1.3) K/mcL Eosinophils # 0.2 (0.0-0.6) K/mcL Basophils # 0.1 (0.0-0.2) K/mcL PT 12.7 H (9.4-12.1) Seconds INR 1.1 APTT 34.3 (26.0-36.0) Seconds Sodium (136-145) mEq/L Potassium (3.5-5.1) mEq/L Chloride (98-107) mEq/L Carbon Dioxide (23-29) mEq/L BUN (8-23) mg/dL Creatinine (0.70-1.30) mg/dL Est GFR ( Amer) (> 60) Est GFR (Non-Af Amer) (> 60) BUN/Creatinine Ratio (6-26) Glucose (70-105) mg/dL Calculated Osmolality (280-300) Calcium (8.6-10.3) mg/dL Total Bilirubin 0.9 (0.3-1.0) mg/dL Direct Bilirubin 0.1 (0.0-0.2) mg/dL Indirect Bilirubin 0.8 (0.0-1.2) mg/dL AST 29 (13-39) Units/L ALT 31 (7-52) Units/L Alkaline Phosphatase 101 (34-104) Units/L Troponin I (< 0.04) ng/mL Serum Total Protein 7.7 (6.4-8.9) g/dL Albumin 4.4 (3.5-5.7) g/dL Globulin 3.3 (2.4-3.5) g/dL Albumin/Globulin Ratio 1.3 (1.1-2.2) Lipase 22 (11-82) Units/L 09/25/18 Range/Units 15:26 WBC (4.3-11.1) K/mcL RBC (4.19-5.50) M/mcL Hgb (12.9-16.9) g/dL Hct (37.5-50.1) % MCV (83.0-100.0) fL MCH (28.0-33.3) pg MCHC (31.6-35.5) g/dL RDW (11.5-14.5) % Plt Count (140-400) K/mcL MPV (9.4-12.4) fL Immature Gran % (0-4) % Seg Neutrophils % % Lymphocytes % % Monocytes % % Eosinophils % % Basophils % % Neutrophils # (1.6-8.9) K/mcL Lymphocytes # (0.6-4.6) K/mcL Monocytes # (0.0-1.3) K/mcL Eosinophils # (0.0-0.6) K/mcL Basophils # (0.0-0.2) K/mcL PT (9.4-12.1) Seconds INR APTT (26.0-36.0) Seconds Sodium 134 L (136-145) mEq/L Potassium 3.7 (3.5-5.1) mEq/L Chloride 99 (98-107) mEq/L Carbon Dioxide 24 (23-29) mEq/L BUN 9 (8-23) mg/dL Creatinine 0.76 (0.70-1.30) mg/dL Est GFR ( Amer) > 60 (> 60) Est GFR (Non-Af Amer) > 60 (> 60) BUN/Creatinine Ratio 12 (6-26) Glucose 304 H (70-105) mg/dL Calculated Osmolality 288 (280-300) Calcium 9.7 (8.6-10.3) mg/dL Total Bilirubin (0.3-1.0) mg/dL Direct Bilirubin (0.0-0.2) mg/dL Indirect Bilirubin (0.0-1.2) mg/dL AST (13-39) Units/L ALT (7-52) Units/L Alkaline Phosphatase (34-104) Units/L Troponin I 0.03 (< 0.04) ng/mL Serum Total Protein (6.4-8.9) g/dL Albumin (3.5-5.7) g/dL Globulin (2.4-3.5) g/dL Albumin/Globulin Ratio (1.1-2.2) Lipase (11-82) Units/L - Radiology Data Radiology results reviewed: Yes I reviewed the patient's radiology results. Chest X-Ray 09/25/18 15:16 IMPRESSION: Mild congestive changes. D/ / Lm Navarrete MD / Lm Navarrete MD Interpreting Provider: Lm Navarrete MD S.B.A.R. - S.B.A.R. Situation: Demographics, MOA Background: Presenting Complaint, Relevant PMH, Meds, & Allergies Assessment: Vital Signs, Course and respsone to treatment, Exam Concerns, Patient/Family Expectation, Pertinant Lab Results, Outstanding Labs Recommendation: Barrier(s) to disposition, Recommendation based on pending studies, treatments, or consults Lauren Report Given to: hospitalist Lauren Repor Time: 16:49 (accepted) Attestation Statement - Attestation Attestation: Patient was seen with resident physician. I reviewed the history, physical, assessment and plan, and agree with the findings. I also personally evaluated this patient and had [id number] time with this patient. 62-year-old male presents to the emergency department with chest pain. Start approximately 2 PM today. Was pressure-like sensation. He also had some sharpness in his back. Mild shortness of breath no diaphoresis. Patient states pain is similar to when he is had heart attacks in the past. Has stress test at [facility] this summer. Had stents most recently approximately 2 years ago. Patient took 2 nitros and aspirin at home said it eased up a little bit but now is returning. He denies fevers chills or abdominal pain. Review of systems as above remainder negative. Physical exam vital signs are stable. ENT is unremarkable. Heart regular rhythm and rate. Lungs clear. Abdomen is soft and nontender. Extremities show no swelling. Neurologically intact. Skin no rashes. Psych normal. Chest wall stable cannot reproduce pain. ED course. EKG shows no acute ischemic changes. It similar to old EKG. We will get a chest x-ray labs. X-ray and labs are unremarkable. Patient is feeling somewhat better with the nitroglycerin trial. Patient will be admitted to the hospitalist service for further evaluation and treatment. Agree with the resident physician assessment and plan.
[2018-09-25 16:06] LABS: Basophils # 0.1 K/mcL (0.0-0.2); Basophils % 0.9 %; Eosinophils # 0.2 K/mcL (0.0-0.6); Eosinophils % 1.8 %; Hemoglobin 14.6 g/dL (12.9-16.9); Immature Granulocytes % 0.4 % (0-4); Lymphocytes # 2.4 K/mcL (0.6-4.6); Lymphocytes % 23.3 %; Mean Corpuscular HGB Conc 33.2 g/dL (31.6-35.5); Mean Corpuscular Hemoglobin 29.3 pg (28.0-33.3); Mean Corpuscular Volume 88.2 fL (83.0-100.0); Mean Platelet Volume 10.8 fL (9.4-12.4); Monocytes # 0.7 K/mcL (0.0-1.3); Neutrophils # 6.9 K/mcL (1.6-8.9); Platelet Count 195 K/mcL (140-400); Red Blood Count 4.99 M/mcL (4.19-5.50); Red Cell Distribution Width 13.8 % (11.5-14.5); Segmented Neutrophils % 66.6 %
[2018-09-25 16:13] LABS: INR 1.1; Prothrombin Time 12.7 Seconds (9.4-12.1)
[2018-09-25 16:16] LABS: Activated Partial Thrombo Time 34.3 Seconds (26.0-36.0)
[2018-09-25 16:26] LABS: Albumin 4.4 g/dL (3.5-5.7); Albumin/Globulin Ratio 1.3 (1.1-2.2); Bilirubin,Direct 0.1 mg/dL (0.0-0.2); Bilirubin,Indirect 0.8 mg/dL (0.0-1.2); Bilirubin,Total 0.9 mg/dL (0.3-1.0); Globulin 3.3 g/dL (2.4-3.5); Total Protein 7.7 g/dL (6.4-8.9)
[2018-09-25 16:28] LABS: BUN/Creatinine Ratio 12 (6-26); Blood Urea Nitrogen 9 mg/dL (8-23); Calcium 9.7 mg/dL (8.6-10.3); Carbon Dioxide 24 mEq/L (23-29); Chloride 99 mEq/L (98-107); Glucose 304 mg/dL (70-105); Osmolality,Calculated 288 (280-300); Potassium 3.7 mEq/L (3.5-5.1); Sodium 134 mEq/L (136-145); Troponin I 0.03 ng/mL (< 0.04); eGFR For Non-African Americans > 60 (> 60)
[2018-09-25] MEDS ORDERED: Naloxone 0.4 MG/ML INJ IVP PRN (18:20)
[2018-09-25] MEDS ORDERED: Acetaminophen 325 MG TABLET PO PRN (18:23)
[2018-09-25] MEDS ORDERED: Ipratropium/Albuterol Neb 3 ML IH PRN (18:29)
[2018-09-25] MEDS ORDERED: *HR* Dextrose 50 % in Water (Syg) 50 ML SYRINGE IVP PRN (18:30)
[2018-09-25] MEDS ORDERED: Dextrose Gel 15 GM/37.5 ML TUBE PO PRN ×2 (18:30)
[2018-09-25] MEDS ORDERED: D5% in Water 1,000 ML IVC PRN (18:30)
[2018-09-25] MEDS ORDERED: Nitroglycerin 0.4 MG TAB.SUBL SL PRN (20:22)
[2018-09-25] MEDS: Insulin DETEMIR 100 UNIT/ML X5UNITS SQ SCH (21:01)
[2018-09-25] MEDS: Insulin LISPRO 300 UNITS/3 ML VIAL SQ SCH (21:01)
[2018-09-25] MEDS: *HR* Ticagrelor 90 MG TABLET PO SCH (21:04)
[2018-09-25] MEDS: Ranolazine 500 MG TAB.ER.12H PO SCH (21:04)
[2018-09-25] MEDS: Metoprolol XL (24 HR) Succ 50 MG TAB.ER.24H PO SCH (21:06)
[2018-09-25] MEDS: Ipratropium/Albuterol Neb 3 ML IH SCH (21:56)
[2018-09-25] MEDS: Budesonide/Formoterol 160/4.5 1 PUFF INH IH SCH (21:56)
--- NOTE | 2018-09-25 21:58 | Internal Med History&Physical ---
Date of Encounter: 09/25/18 Time of Encounter: 19:00 Internal Medicine - H&P: HPI Admitted From: Home Plans for Post Hospital Care: Home History of present illness: The patient is a 62-year-old male. He has had underlying coronary artery disease; has had a few coronary stents inserted. His last 2 cardiac catheterization were done in 2016 (November and March). His last stress test was done in April 2017. It was today early afternoon, when he developed chest pain located in the lower portion of his anterior chest. It lasted for about 10-15 minutes. It was not associated with any other symptoms. The pain started again around 2 PM. He took had 2 consecutive sublingual nitroglycerin tablets; with limited results. This time the pain was more severe7 or 8 points on 10 point scale. Associated with a little bit dyspnea and sweating. He arrived to our emergency room around 2:54 PM. He got 1 extra sublingual nitroglycerin and regular aspirin. His pain is very mild today early evening (when I examined him). Interestingly, he developed some worsening of his chest pain, when sneezed in my presence. The pain seemed to be located below his right clavicle. He denies having exertional chest pain recently. He slept well last night; not having any particular problems with his breathing. The patient was fighting her symptoms and signs of upper respiratory infection at [place] time. They nearly completely subsided. PAST MEDICAL HX: He has coronary artery disease, as described above. He is treated for [id number] type 2 diabetes mellitus, hypertension and hyperlipidemia. He does have mild/moderate COPD. He takes Lasix, likely for some diastolic heart failure. I found his last echocardiogram done on 04/21/2017. It was technically poor study. They suspected a left ventricular ejection fraction of 50% with possible wall motion abnormalities. It was followed by cardiac catheterization done on 04/22/2017. It showed moderate coronary artery disease. With estimated ejection fraction of 60%. PAST FAMILY HX: See below.. <----------------------- PAST SOCIAL HX: The patient quit using tobacco about 15 years ago. He used to smoke average 2 packs per daystarted smoking as a teenager. He has no history of significant alcohol consumption. REVIEW OF SYSTEMS: All 14 organ systems were reviewed by me with the patient. Positive and pertinent negative findings are listed above. The rest of organ systems is nega tive. PHYSICAL EXAM: Skin: Free of rash and discoloration. Musculoskeletal: I found some areas of soreness in his anterior chest wall. Eyes: Sclera is white. There is no discharge from eyes. ENMT: Oral/pharyngeal mucosa is normal in appearance. There is no discharge from nose or ears. Respiratory: Normal breath sounds with no crackles and wheezes bilaterally. CV: Heart is regular with no gallop or murmur. GI: Abdomen is flat and soft with no palpable mass or visceromegaly. : There is no tenderness in patient's flanks bilaterally. Neuro exam: He has good strength in upper and lower extremities. He has normal eye movements. Psychiatric: He has normal affect. His thought process is appropriate to the situation. ADDITIONAL DATA: Chest x-ray shows mild congestive changes. His EKG is reported to me by the ER attending showed normal findings. CBC is normal. Pro time INR is 1.1. Electrolytes are normal. Creatinine is 0.76 with a random glucose of 304. He has normal hepatic panel. Troponin is 0.03. A/P: Chest pain. Likely musculoskeletal. I will give him a schedule to the Ultracet. I will check his troponin again. I feel, that he is not experiencing acute coronary syndrome at this time. He may benefit from outpatient nuclear medicine stress test. He does have underlying moderate coronary artery diseasesee his cardiac cath report from April 2017. Type 2 diabetes mellitus. He has elevated glucose level. I will start him on diabetic diet with Levemir and when necessary Humalog. He was taking glipizide and metformin at home. COPD. He likely suffered from exacerbation of that problem recently. He subsequently developed some soreness of his respiratory muscles in the chest. I would keep him on Ultracet (as mentioned above) for a couple days. His other medical problems are listed above in past medical history. They seem to be stable/under control. Past Med Surg Social Fam HX - Past Medical History Medical history: arthritis, asthma, atrial fibrillation, CHF, COPD, coronary artery disease, diabetes, hyperlipidemia, hypertension, migraine, myocardial infarction Additional medical history: MULU, colon polyps, bells palsy, mumps, PN, Psychiatric history: no psych history - Past Surgical History Surgical History: angioplasty/stent, cataract, cholecystectomy Additional surgical history: Nose and throat, tumor removed - Social History Smoking Status: Former smoker Packs per day: 2 Smokeless Tobacco Status: No Alcohol use: none Drug use: none - Family History Mother Adopted: Yes Family Member Ethnicity: Non- Living Status: Still Living Hx Family Cancer: Yes Internal Medicine - H&P: Meds Aspirin 81 mg PO DAILY 12/16/16 [History] Atorvastatin [Lipitor] 40 mg PO HS 12/16/16 [History] Fish Oil/Dha/Epa [Fish Oil 1,200 mg Fish Oil] 1 each PO DAILY 12/16/16 [History] Metformin HCl [Glucophage] 1,000 mg PO BID 12/16/16 [History] glipiZIDE [Glipizide] 10 mg PO DAILY 12/16/16 [History] Furosemide [Lasix] 40 mg PO DAILY #30 tablet 12/20/16 [Rx] Potassium Chloride 20 meq PO DAILY #60 tab.er.prt 12/20/16 [Rx] Ticagrelor [Brilinta] 90 mg PO BID #30 tablet 12/20/16 [Rx] amLODIPine [Norvasc] 10 mg PO DAILY #60 tablet 12/20/16 [Rx] Albuterol Sulfate [Ventolin Hfa] 90 gm IH Q4H 02/12/17 [History] Budesonide/Formoterol 160/4.5 [Symbicort 160/4.5] 2 puff IH BIDR 02/12/17 [History] Citalopram [CeleXA] 20 mg PO DAILY 02/12/17 [History] Isosorbide MONOnitrate (24 HR) [Imdur] 60 mg PO DAILY 02/12/17 [History] Losartan [Cozaar] 50 mg PO DAILY 02/12/17 [History] Metoprolol XL (24 HR) Succ [Toprol Xl] 50 mg PO BID 02/12/17 [History] Multivit-Min/FA/Lycopen/Lutein [Centrum Silver Men Tablet] 1 each PO DAILY 02/12/17 [History] Nitroglycerin [Nitrostat] 0.4 mg SL PRN PRN 02/12/17 [History] Acetaminophen [Tylenol] 650 mg PO Q6HR PRN tab 04/22/17 [Rx] Ranolazine [Ranexa] 500 mg PO BID #60 tab 04/23/17 [Rx] Allergy/AdvReac Type Severity Reaction Status Date / Time lisinopril AdvReac Cough Verified 12/16/16 11:17 - Constitutional Vitals: Temp Pulse Resp BP Pulse Ox 98.1 F 52 16 105/58 96 09/25/18 19:04 09/25/18 19:04 09/25/18 19:04 09/25/18 21:03 09/25/18 19:04 General appearance: Present: A&O X 3, no acute distress, answers questions appropriately Exam: xx Internal Med - H&P Results - Labs CBC & Chem 7: 09/25/18 15:26 09/25/18 15:26 Labs: Short CBC 09/25/18 Range/Units 15:26 WBC 10.3 (4.3-11.1) K/mcL Hgb 14.6 (12.9-16.9) g/dL Hct 44.0 (37.5-50.1) % Plt Count 195 (140-400) K/mcL Neutrophils # 6.9 (1.6-8.9) K/mcL BMP 09/25/18 15:26 Sodium 134 L Potassium 3.7 Chloride 99 Carbon Dioxide 24 BUN 9 Creatinine 0.76 Glucose 304 H Calcium 9.7 Cardiac Enzymes 09/25/18 Range/Units 15:26 Troponin I 0.03 (< 0.04) ng/mL Liver Function 09/25/18 Range/Units 15:16 Total Bilirubin 0.9 (0.3-1.0) mg/dL Direct Bilirubin 0.1 (0.0-0.2) mg/dL AST 29 (13-39) Units/L ALT 31 (7-52) Units/L Alkaline Phosphatase 101 (34-104) Units/L Albumin 4.4 (3.5-5.7) g/dL - Impressions ITS Impressions Chest X-Ray 09/25/18 15:16 IMPRESSION: Mild congestive changes. D/ / Lm Navarrete MD / Lm Navarrete MD Interpreting Provider: Lm Navarrete MD - Assessment and plan (1) Chest pain Current Visit: Yes Status: Acute Qualifiers: Chest pain type: other chest pain Qualified Code(s): R07.89 - Other chest pain; R07.8 - Other chest pain (2) CAD (coronary artery disease), [place] coronary artery Current Visit: No Status: Chronic Qualifiers: [place] vs. transplanted heart: [place] heart Associated angina: with unspecified angina Qualified Code(s): I25.119 - Atherosclerotic heart disease of [place] coronary artery with unspecified angina pectoris (3) COPD (chronic obstructive pulmonary disease) Current Visit: Yes Status: Chronic Qualifiers: COPD type: unspecified COPD Qualified Code(s): J44.9 - Chronic obstructive pulmonary disease, unspecified (4) Type 2 diabetes mellitus Current Visit: Yes Status: Acute Qualifiers: Diabetes mellitus termite helper insulin use: without detention use Diabetes mellitus complication status: without complication Qualified Code(s): E11.9 - Type 2 diabetes mellitus without complications - Time Spent With Patient Total time spent is greater than 50% in coordination of care (as documented) at patient's floor/unit and/or counseling patient: 25 - 35 minutes - VTE Deep Vein Thrombosis/Pulmonary Embolism Present on Admission: No
[2018-09-26] MEDS: Ipratropium/Albuterol Neb 3 ML IH SCH ×4 (04:56→23:04)
[2018-09-26 05:13] LABS: Basophils # 0.1 K/mcL (0.0-0.2); Basophils % 0.8 %; Eosinophils # 0.2 K/mcL (0.0-0.6); Eosinophils % 1.9 %; Hemoglobin 14.3 g/dL (12.9-16.9); Immature Granulocytes % 0.5 % (0-4); Lymphocytes # 2.8 K/mcL (0.6-4.6); Lymphocytes % 27.7 %; Mean Corpuscular HGB Conc 32.5 g/dL (31.6-35.5); Mean Corpuscular Hemoglobin 29.5 pg (28.0-33.3); Mean Corpuscular Volume 90.9 fL (83.0-100.0); Monocytes # 0.8 K/mcL (0.0-1.3); Monocytes % 7.4 %; Neutrophils # 6.3 K/mcL (1.6-8.9); Platelet Count 176 K/mcL (140-400); Red Blood Count 4.84 M/mcL (4.19-5.50); Red Cell Distribution Width 13.7 % (11.5-14.5); Segmented Neutrophils % 61.7 %
[2018-09-26 05:27] LABS: BUN/Creatinine Ratio 14 (6-26); Blood Urea Nitrogen 12 mg/dL (8-23); Calcium 9.3 mg/dL (8.6-10.3); Carbon Dioxide 24 mEq/L (23-29); Chloride 102 mEq/L (98-107); Glucose 251 mg/dL (70-105); Osmolality,Calculated 290 (280-300); Potassium 3.7 mEq/L (3.5-5.1); Sodium 136 mEq/L (136-145); eGFR For Non-African Americans > 60 (> 60)
[2018-09-26] MEDS: Insulin LISPRO 300 UNITS/3 ML VIAL SQ SCH ×4 (08:07→21:51)
[2018-09-26] MEDS: Regadenoson 0.4 MG/5 ML SYRINGE IVP ONE ×2 (10:03→11:06)
[2018-09-26] MEDS: Budesonide/Formoterol 160/4.5 1 PUFF INH IH SCH ×2 (10:12→23:04)
[2018-09-26] MEDS: Ranolazine 500 MG TAB.ER.12H PO SCH ×2 (11:35→21:52)
[2018-09-26] MEDS: Aspirin 81 MG TAB.CHEW PO SCH (11:35)
[2018-09-26] MEDS: Isosorbide MONOnitrate (24 HR) 60 MG TAB.ER.24H PO SCH (11:35)
[2018-09-26] MEDS: *HR* Ticagrelor 90 MG TABLET PO SCH ×2 (11:35→21:51)
[2018-09-26] MEDS: Metoprolol XL (24 HR) Succ 50 MG TAB.ER.24H PO SCH ×2 (11:35→21:52)
[2018-09-26] MEDS: Furosemide 40 MG TABLET PO SCH (11:35)
[2018-09-26] MEDS: amLODIPine 5 MG TABLET PO SCH (11:35)
[2018-09-26] MEDS: (Fish Oil 1,200 Mg Fish Oil] 1 EACH) PO SCH (11:36)
--- NOTE | 2018-09-26 15:39 | Internal Med Progress Note ---
Hospitalist Progress Note - Encounter Date of Encounter: 09/26/18 Time of Encounter: 09:00 - Subjective Interval History: Patient laying on bed, looks weak. Denies chest pain or shortness of breath. Vitals are stable. - Exam Vitals: Temp Pulse Resp BP Pulse Ox 97.9 F 99 19 117/63 97 09/26/18 12:14 09/26/18 12:14 09/26/18 12:14 09/26/18 12:14 09/26/18 12:14 Exam: Pt is AAO x 3, in NAD, obesity HEENT: NC/AT, PERRL Neck: Supple, no JVD, no LAD Lungs: CTA b/l Heart: S1S2, RRR Abd: Soft, nontender, BS present Ext: ROM wnl, no pedal edema Neuro: No focal deficit - Assessment and Plan (1) CAD (coronary artery disease), [place] coronary artery Current Visit: No Status: Chronic Assessment and Plan: Patient has history of CAD, recent LHC shows non obstructive stenosis. Patient has new chest pain, respond to nitroglycerin. Continue home medications at this point. Patient is pain-free. Plan for nuclear stress test tomorrow. (2) Chest pain Current Visit: Yes Status: Acute Assessment and Plan: Management as above. Continue cardiac monitoring. 3 sets of troponin negative (3) COPD (chronic obstructive pulmonary disease) Current Visit: Yes Status: Chronic Assessment and Plan: Stable, no wheezing, continue home medications (4) Type 2 diabetes mellitus Current Visit: Yes Status: Acute Assessment and Plan: Poorly controlled, recent hemoglobin A1c 8.7%. continue basal and sliding scale insulin coverage. Repeat hemoglobin A1c. - Time Spent with Patient Total time spent is greater than 50% in coordination of care (as documented) at patient's floor/unit and/or counseling patient: 30 minutes 25 - 35 minutes Plan of Care Discussed with: patient Internal Medicine: Result - Labs CBC & Chem 7: 09/26/18 04:54 09/26/18 04:54 Labs: Short CBC 09/25/18 09/26/18 Range/Units 15:26 04:54 WBC 10.3 10.2 (4.3-11.1) K/mcL Hgb 14.6 14.3 (12.9-16.9) g/dL Hct 44.0 44.0 (37.5-50.1) % Plt Count 195 176 (140-400) K/mcL Neutrophils # 6.9 6.3 (1.6-8.9) K/mcL BMP 09/25/18 09/26/18 15:26 04:54 Sodium 134 L 136 Potassium 3.7 3.7 Chloride 99 102 Carbon Dioxide 24 24 BUN 9 12 Creatinine 0.76 0.84 Glucose 304 H 251 H Calcium 9.7 9.3 Cardiac Enzymes 09/25/18 09/25/18 09/26/18 Range/Units 15:26 22:09 04:54 Troponin I 0.03 < 0.03 < 0.03 (< 0.04) ng/mL Liver Function 09/25/18 Range/Units 15:16 Total Bilirubin 0.9 (0.3-1.0) mg/dL Direct Bilirubin 0.1 (0.0-0.2) mg/dL AST 29 (13-39) Units/L ALT 31 (7-52) Units/L Alkaline Phosphatase 101 (34-104) Units/L Albumin 4.4 (3.5-5.7) g/dL - ABG Interpretation ABG results: PT/INR, D-dimer PT 12.7 Seconds (9.4-12.1) H 09/25/18 15:16 - Impressions Impressions Chest X-Ray 09/25/18 15:16 IMPRESSION: Mild congestive changes. D/ / Lm Navarrete MD / Lm Navarrete MD Interpreting Provider: Lm Navarrete MD - VTE Deep Vein Thrombosis/Pulmonary Embolism Present on Admission: No Consult Discharge Plan - Plan Referrals: Damian Kim Jr, MD [Primary Care Provider] - (1) CAD (coronary artery disease), [place] coronary artery Qualifiers: [place] vs. transplanted heart: [place] heart Associated angina: with unspecified angina Qualified Code(s): I25.119 - Atherosclerotic heart disease of [place] coronary artery with unspecified angina pectoris (2) Chest pain Qualifiers: Chest pain type: other chest pain Qualified Code(s): R07.89 - Other chest pain; R07.8 - Other chest pain (3) COPD (chronic obstructive pulmonary disease) Qualifiers: COPD type: unspecified COPD Qualified Code(s): J44.9 - Chronic obstructive pulmonary disease, unspecified (4) Type 2 diabetes mellitus Qualifiers: Diabetes mellitus terminal worker insulin use: without terminal worker use Diabetes mellitus complication status: without complication Qualified Code(s): E11.9 - Type 2 diabetes mellitus without complications
[2018-09-26] MEDS: Insulin DETEMIR 100 UNIT/ML X5UNITS SQ SCH (21:52)
[2018-09-27] MEDS: Ipratropium/Albuterol Neb 3 ML IH SCH ×2 (05:03→09:45)
[2018-09-27] MEDS ORDERED: Regadenoson 0.4 MG/5 ML SYRINGE IVP ONE (05:46)
[2018-09-27] MEDS: Insulin LISPRO 300 UNITS/3 ML VIAL SQ SCH ×2 (08:36→09:44)
[2018-09-27 08:49] VITALS: BP 134/89
[2018-09-27] MEDS: amLODIPine 5 MG TABLET PO SCH (09:32)
[2018-09-27] MEDS: Aspirin 81 MG TAB.CHEW PO SCH (09:32)
[2018-09-27] MEDS: Ranolazine 500 MG TAB.ER.12H PO SCH (09:32)
[2018-09-27] MEDS: Metoprolol XL (24 HR) Succ 50 MG TAB.ER.24H PO SCH (09:32)
[2018-09-27] MEDS: Furosemide 40 MG TABLET PO SCH (09:32)
[2018-09-27] MEDS: Isosorbide MONOnitrate (24 HR) 60 MG TAB.ER.24H PO SCH (09:33)
[2018-09-27] MEDS: *HR* Ticagrelor 90 MG TABLET PO SCH (09:33)
[2018-09-27] MEDS: (Fish Oil 1,200 Mg Fish Oil] 1 EACH) PO SCH (09:33)
[2018-09-27] MEDS: Budesonide/Formoterol 160/4.5 1 PUFF INH IH SCH (09:45)
--- NOTE | 2018-09-27 10:52 | Discharge Summary ---
- NOTES TO OUTPATIENT PROVIDER Notes to Outpatient Provider: 1. Follow up with pt's cardiology as stress test shows EF 39%, will order Echo upon discharge. Orders not resulted at time of discharge: Pending orders 09/27/18 03:33 A1C [Hgb A1C] AM 0400 09/27/18 08:36 NM emelia perf SPECT multi [NM] Routine Date of Encounter: 09/27/18 Time of Encounter: 10:00 - Discharge Diagnosis (1) CAD (coronary artery disease), [place] coronary artery Priority: Primary Status: Chronic Qualifiers: [place] vs. transplanted heart: [place] heart Associated angina: with unspecified angina Qualified Code(s): I25.119 - Atherosclerotic heart disease of [place] coronary artery with unspecified angina pectoris (2) Chest pain Priority: Primary Status: Acute Qualifiers: Chest pain type: other chest pain Qualified Code(s): R07.89 - Other chest pain; R07.8 - Other chest pain (3) COPD (chronic obstructive pulmonary disease) Priority: Secondary Status: Chronic Qualifiers: COPD type: unspecified COPD Qualified Code(s): J44.9 - Chronic obstructive pulmonary disease, unspecified (4) Type 2 diabetes mellitus Priority: Secondary Status: Acute Qualifiers: Diabetes mellitus marine oil terminal superintendent insulin use: without marine oil terminal superintendent use Diabetes mellitus complication status: without complication Qualified Code(s): E11.9 - Type 2 diabetes mellitus without complications Hospital course: Mr. Myers is a 62 year old male presented to ER for chest pain. Past medical history is significant for diabetes, CAD with now obstructive stenosis, hypertension, systolic CHF. Patient was placed on continuous cardiac monitoring, 3 sets of troponin negative. Stress test has been done, which shows negative for ischemia. Gaited EF 39%, patient's previous echo revealed, which shows EF 50%. Will order an outpatient echo and continue follow-up with cardiology as outpatient. I have seen and examined this patient today. Patient is pain-free, no shortness of breath. With discharge and home, continue home medication for CAD and continue follow-up with outpatient project reservoir engineer and primary doctor. - Time Spent with Patient Total time spent providing and/or coordinating discharge services: 25 minutes Less than 30 minutes - Discharge Medications Home Medications: Aspirin 81 mg PO DAILY 12/16/16 [History] Atorvastatin [Lipitor] 40 mg PO HS 12/16/16 [History] Fish Oil/Dha/Epa [Fish Oil 1,200 mg Fish Oil] 1 each PO DAILY 12/16/16 [History] Metformin HCl [Glucophage] 1,000 mg PO BID 12/16/16 [History] glipiZIDE [Glipizide] 10 mg PO DAILY 12/16/16 [History] Furosemide [Lasix] 40 mg PO DAILY #30 tablet 12/20/16 [Rx] Potassium Chloride 20 meq PO DAILY #60 tab.er.prt 12/20/16 [Rx] Ticagrelor [Brilinta] 90 mg PO BID #30 tablet 12/20/16 [Rx] amLODIPine [Norvasc] 10 mg PO DAILY #60 tablet 12/20/16 [Rx] Albuterol Sulfate [Ventolin Hfa] 90 gm IH Q4H 02/12/17 [History] Budesonide/Formoterol 160/4.5 [Symbicort 160/4.5] 2 puff IH BIDR 02/12/17 [History] Citalopram [CeleXA] 20 mg PO DAILY 02/12/17 [History] Isosorbide MONOnitrate (24 HR) [Imdur] 60 mg PO DAILY 02/12/17 [History] Losartan [Cozaar] 50 mg PO DAILY 02/12/17 [History] Metoprolol XL (24 HR) Succ [Toprol Xl] 50 mg PO BID 02/12/17 [History] Multivit-Min/FA/Lycopen/Lutein [Centrum Silver Men Tablet] 1 each PO DAILY 02/12/17 [History] Nitroglycerin [Nitrostat] 0.4 mg SL PRN PRN 02/12/17 [History] Acetaminophen [Tylenol] 650 mg PO Q6HR PRN tab 04/22/17 [Rx] Ranolazine [Ranexa] 500 mg PO BID #60 tab 04/23/17 [Rx] Allergies/Adverse Reactions: Allergy/AdvReac Type Severity Reaction Status Date / Time lisinopril AdvReac Cough Verified 12/16/16 11:17 Date of admission: 09/25/18 17:20 Primary care physician: Damian Kim Jr, MD Discharging clinician: Arun Fajardo Anticipated date of discharge: 09/27/18 - Constitutional Vitals: Temp Pulse Resp BP Pulse Ox 97.6 F 97 16 134/89 97 09/27/18 08:41 09/27/18 08:41 09/27/18 09:45 09/27/18 08:41 09/27/18 09:45 General appearance: Present: A&O X 3, no acute distress, answers questions appropriately Exam: Pt is AAO x 3, in NAD, obesity HEENT: NC/AT, PERRL Neck: Supple, no JVD, no LAD Lungs: CTA b/l Heart: S1S2, RRR Abd: Soft, nontender, BS present Ext: ROM wnl, no pedal edema Neuro: No focal deficit - Patient Status Disposition: Home, Self-Care Condition: Good Functional capacity at discharge: independent ambulation Overall status at discharge: patient is back to baseline - Discharge Instructions Follow Up With: Damian Kim Jr, MD [Primary Care Provider] - - Diet and Activity Activity: increase activity as tolerated Diet: diabetic diet - VTE Deep Vein Thrombosis/Pulmonary Embolism Present on Admission: No
[2018-09-27 14:50] LABS: Estimated Average Glucose 260 mg/dl; Hemoglobin A1C 10.7 %
--- NOTE | 2018-09-27 14:57 | Electrocardiograph Report ---
[place] [address] Test Date: 2018-09-25 Pat Name: Nicolas Myers Department: [id number] Room: 3B Gender: M Team Leader: : 1955 Requested By: Judith Gonzalez Order Number: [id number] Reading MD: Claude Julien Measurements Intervals [place] Rate: 109 P: [place]: QRS: 73 QRSD: 100 T: 57 QT: 363 QTc: 489 Interpretive Statements Atrial fibrillation with rapid ventricular response Borderline prolonged QT interval Electronically Signed On 09-27-2018 14:55:28 EST by Claude Julien
--- NOTE | 2018-09-27 16:00 | Electrocardiograph Report ---
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
== END 2018-09-27 12:25 | disposition home or self-care (01) ==
LOC: EMEROOARM 14:54 → 3BNU 14:54
PROVIDERS: ADMIT Internal Medicine; ATTEND Internal Medicine